=== PATIENT | female | born 2000 | race Caucasian/White ===

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

== ENCOUNTER 2019-02-04 20:52 | Emergency (ER) | payer MEDICAID ==
[~2019-02-04] VITALS: Ht 157.4 cm; Wt 94.0 kg
--- NOTE | 2019-02-04 21:59 | ED GU-Female ---
General Chief Complaint: Back Problems Stated Complaint: LOWER BACK PAIN ALL DAY - 35 WKS PREG Nursing Triage Note: Patient states that she has been having back pain for the last couple of days. She states that the pain comes and goes with cramping. Patient is 36 weeks and states this feels like labor. Patient did go into labor with previous pregnancies. Source: patient Exam Limitations: no limitations History of Present Illness Date Seen by Provider: Feb 04, 2019 Time Seen by Provider: 21:19 Initial Comments Here with report of low back pain. She is approximately 36 weeks and has had low back pain all day. She feels like she has had some contractions throughout the day. She is concerned because she has had labor on her previous delivery. She opted to come here instead of [facility] to get checked out just because it was closer. She lives here in [place]. Denies gush of water. Denies persistent or consistent contractions currently. Timing/Duration: this morning, changing over time Severity/Quality: moderate, dull Location: other (bilateral back) Radiation: none Activities at Onset: none Prior Genitourinary Problems: none Associated Symptoms: abdominal pain (intermittent contractions), lower back pain; No urinary frequency Allergies and Home Medications Allergies Coded Allergies: No Known Allergies (Verified Allergy, Unknown, 05/29/18) Home Medications Ibuprofen 600 Mg Tablet, 600 MG PO Q6H PRN for PAIN-MILD TO MODERATE Prescribed by: YOVANY CHAUDHARY on 01/03/18 0649 Phenazopyridine HCl 200 Mg Tablet, 200 MG PO TID PRN for dysuria Prescribed by: TESS MERCADO on 05/29/182135 Vit/Iron Fumarate/FA 1 Each Tablet, 1 EACH PO DAILY, (Reported) Sertraline HCl 50 Mg Tablet, 50 MG PO DAILY Prescribed by: YOVANY CHAUDHARY on 01/04/18 1154 Sulfamethoxazole/Trimethoprim 1 Each Tablet, 1 EACH PO BID Prescribed by: TESS MERCADO on 05/29/182135 Patient Home Medication List Home Medication List Reviewed: Yes Review of Systems Review of Systems Constitutional: see HPI; No chills, No fever Respiratory: no symptoms reported Cardiovascular: no symptoms reported Gastrointestinal: see HPI Genitourinary: no symptoms reported : Yes Psychiatric/Neurological: No Symptoms Reported Past Zlypjkk-Ujlyrh-Hcgoeb Hx Past Med/Social Hx: Reviewed Nursing Past Med/Soc Hx Patient Social History Alcohol Use: Denies Use Recreational Drug Use: No Smoking Status: Never a Smoker 2nd Hand Smoke Exposure: No Recent Foreign Travel: No Contact w/Someone Who Travel: No Recent Infectious Disease Expo: No Recent Hopitalizations: No Ebola Symptoms: Denies Symptoms Listed Physical Abuse: No Sexual Abuse: No Mistreated: No Fear: No Immunizations Up To Date Tetanus Booster (TDap): Less than 5yrs PED Vaccines UTD: Yes Date of Influenza Vaccine: Dec 15, 2017 Seasonal Allergies Seasonal Allergies: No Past Medical History Surgeries: Yes (ORAL SURGERY) Gallbladder, Tonsillectomy Respiratory: No Cardiac: No Neurological: No Female Reproductive Disorders: Denies Sexually Transmitted Disease: No HIV/AIDS: No Genitourinary: No Gastrointestinal: Yes Gall Bladder Disease Musculoskeletal: Yes Fractures Endocrine: No HEENT: No Loss of Vision: Denies Hearing Impairment: Denies Cancer: No Psychosocial: Yes Anxiety, Depression Integumentary: No Blood Disorders: No Adverse Reaction/Blood Tranf: No Family Medical History Reviewed Nursing Family Hx Cardiovascular disease 19 FATHER Completed stroke 19 FATHER Diabetes mellitus PATERNAL GRANDFATHER Hypertension 19 FATHER Kidney disease Myocardial infarction 19 FATHER Physical Exam Vital Signs Vital Signs - First Documented 02/04/19 21:10 Temp 36.4 Pulse 114 Resp 20 B/P (MAP) 128/82 O2 Delivery Room Air Capillary Refill : Height, Weight, BMI Height: 5'2.00" Weight: 190lbs. 0.0oz. 86.879423vw; 37.00 BMI Method:Stated General Appearance: WD/WN, no apparent distress Cardiovascular: regular rate, rhythm, no murmur Respiratory: lungs clear, normal breath sounds Gastrointestinal: non tender, soft, other (gravid above the umbilicus) Extremities: non-tender, normal inspection Neurologic/Psychiatric: alert, oriented x 3 Skin: normal color, warm/dry Progress/Results/Core Measures Suspected Sepsis SIRS Temperature: Pulse: Respiratory Rate: Blood Pressure / Mean: Results/Orders Vital Signs/I&O 02/04/19 21:10 Temp 36.4 Pulse 114 Resp 20 B/P (MAP) 128/82 O2 Delivery Room Air Capillary Refill : Progress Note : Progress Note Seen and evaluated. heart tones by Doppler at 141. Pelvic exam shows is still thick and approximately fingertip to 1 cm. Abdominal exam does not note any uterine contractions. I did discuss the case with Dr. Sams. She is recommending patient go ahead and proceed to [facility] for monitoring due to stated contractions today in light of history of previous early delivery. It is okay to go POV and I agree. I did discuss this with the patient and family and they agree. Discharged to go directly to [facility] labor and delivery for evaluation. We will collect UA for evaluation and results will be evaluated when she arrives at [facility]. Departure Impression Primary Impression: Low back pain during in third trimester Disposition: 01 HOME, SELF-CARE Condition: Stable Departure-Patient Inst. Decision time for Depature: 21:59 Referrals: ELIAS MORAES MD (PCP/Family) Primary Care Physician Patient Instructions: - The Ninth Month Add. Discharge Instructions: All discharge instructions reviewed with patient and/or family. Voiced understanding. Go to [facility] labor [facility] delivery for further evaluation. Please go directly there. Return for other concerns as needed. CHANDRIKA HASSAN MD Feb 04, 2019 21:59 POS
== END 2019-02-04 22:02 | disposition home or self-care (01) ==
LOC: EDUNIT# 20:52 → ER FS 20:53
DX: O99.89 Other specified diseases and conditions complicating pregnancy, childbirth and the puerperium (principal); M54.5 Low back pain; O99.343 Other mental disorders complicating pregnancy, third trimester; F41.9 Anxiety disorder, unspecified; F32.9 Major depressive disorder, single episode, unspecified; Z3A.35 35 weeks gestation of pregnancy; Z90.89 Acquired absence of other organs; Z82.49 Family history of ischemic heart disease and other diseases of the circulatory system

== ENCOUNTER 2019-02-17 19:30 | Inpatient (IN) | payer MEDICAID ==
[~2019-02-17] VITALS: Ht 157.5 cm; Wt 92.5 kg
--- NOTE | 2019-02-17 19:28 | NUR ---
EAMON LEHMAN presented to unit via ambulation from home, accompanied by family, for INDUCTION. EAMON LEHMAN weighed, gowned, voided, and to bed. EFHM and TOCO applied, VS taken. EAMON LEHMAN oriented to bed controls, call light, TV, heat, and A/C controls.
[2019-02-17 19:40] VITALS: BP 134/76
[2019-02-17] MEDS ORDERED: LACTATED RINGERS 1,000 ML IV SCH (19:59)
[2019-02-17] MEDS ORDERED: MISOPROSTOL 100 MCG (CYTOTEC) TAB PO ONE (20:00)
[2019-02-17] MEDS ORDERED: MINERAL OIL CONCENTRATE 99.9% 15 ML UDC TOP PRN (20:00)
[2019-02-17] MEDS ORDERED: METO-310 PO (20:07)
[2019-02-17] MEDS: D5 LR IV SOLUTION 1,000 ML IV SCH (20:51)
[2019-02-17] MEDS ORDERED: BUTORPHANOL INJ 2 MG/ML (STADOL) VIAL IV PRN (21:45)
[2019-02-17 21:57] LABS: BASOPHILS % (AUTO) 0 % (0-10); EOSINOPHILS # (AUTO) 0.1 10^3/uL (0.0-0.3); EOSINOPHILS % (AUTO) 1 % (0-10); HEMATOCRIT 32 % (35-52); HEMOGLOBIN 10.8 G/DL (11.5-16.0); LYMPHOCYTES # (AUTO) 2.4 X 10^3 (1.0-4.0); LYMPHOCYTES % (AUTO) 20 % (12-44); MEAN CORPUSCULAR HEMOGLOBIN 28 PG (25-34); MEAN CORPUSCULAR HGB CONC 33 G/DL (32-36); MEAN CORPUSCULAR VOLUME 85 FL (80-99); MEAN PLATELET VOLUME 10.7 FL (7.4-10.4); MONOCYTES # (AUTO) 1.2 X 10^3 (0.0-1.0); MONOCYTES % (AUTO) 10 % (0-12); NEUTROPHILS # (AUTO) 8.2 X 10^3 (1.8-7.8); NEUTROPHILS % (AUTO) 70 % (42-75); PLATELET COUNT 290 10^3/uL (130-400); RED CELL DISTRIBUTION WIDTH 12.9 % (10.0-14.5); WHITE BLOOD COUNT 11.8 10^3/uL (4.3-11.0)
[2019-02-17 22:00] VITALS: BP 142/77
[2019-02-17 23:00] VITALS: BP 120/68
[2019-02-17] MEDS ORDERED: BUPIVACAINE 0.25% 30 ML (SENSORCAINE) VIAL ONE (23:59)
[2019-02-18] VITALS (58 sets, daily range): BP systolic 110–143; BP diastolic 58–95
[2019-02-18] MEDS ORDERED: MISOPROSTOL 100 MCG (CYTOTEC) TAB PO SCH
[2019-02-18] MEDS ORDERED: fentaNYL INJECTION 100 MCG/2 ML AMP ONE
[2019-02-18] MEDS ORDERED: SUFENTA 0.6MCG/ML BUPIVA 0.125 100 ML ONE (00:02)
[2019-02-18] MEDS ORDERED: LACTATED RINGERS 1,000 ML IV ONE (00:06)
[2019-02-18] MEDS ORDERED: NALOXONE 0.4 MG/ML 1 ML (NARCAN) VIAL IV PRN (00:15)
[2019-02-18] MEDS ORDERED: EPIDURAL (SUFENTA 0.6MCG/ML BUPIVA 0.125%) 100 ML BAG EPI SCH (00:15)
[2019-02-18] MEDS ORDERED: CATHETER FLUSH 10 ML SYR IV PRN (00:15)
--- NOTE | 2019-02-18 00:42 | NUR ---
Enrique Mckenzie CRNA and SRNA here for epidural placement. Procedure explained, consent reviewed and signed by anesthesia. Questions answered to patient's satisfaction. Time out taken to verify correct patient/procedure. Patient up to side of bed, assisted into sitting position. Betadine prep done x3 and sterile drape applied. Local done, see anesthesia record. Test dose given, see anesthesia record for drug and dosage. Epidural catheter secured in place. Epidural placement complete. Assisted back into bed, monitors adjusted. Epidural dosed, see anesthesia record. Epidural of Sufenta/Bupvicaine @ 10cc/hr started per pump. Patient tolerated procedure well.
--- NOTE | 2019-02-18 04:02 | History & Physical-OB ---
OB - Chief Complaint & HPI Date/Time Date of Admission: Date of Admission: Feb 17, 2019 at 19:30 Date seen by a Provider: Feb 18, 2019 Time Seen by a Provider: 03:57 Chief Complaint/History OB-Reason for Admission/Chief: Medical Complication (Cholestatis) Hx : 3 Hx Para: 2 Expected Date of Delivery: Mar 11, 2019 Gestational Age in Weeks: 36 Gestational Age in Days: 6 Indication for induction: medical complication Other reason for admission: Patient presented to clinic today with severe itching. Previous patient had similar symptoms and bile acids were elevated in her last . State that itching in the last 2 days is more severe and so bad that she is making herself bleed. History of Labs O neg, Ab neg, Rub Imm HIV/RPR/HepB NR Normal 3 hr GTT GBS neg Allergies and Home Medications Allergies Coded Allergies: No Known Allergies (Verified Allergy, Unknown, 05/29/18) Home Medications Metoclopramide HCl 10 Mg Tablet, 10 MG PO BID, (Reported) Vit/Iron Fumarate/FA 1 Each Tablet, 1 EACH PO DAILY, (Reported) Patient Home Medication List Home Medication List Reviewed: Yes OB - History Hx of Present Care: Yes Ultrasounds: Normal mid trimester US Obstetrical Complications: None Medical Complications: Other (Cholestatis in pregnacy) Information Induced Hypertension: No Maternal Gestational Diabetes: No Hemorrhage: No Obstetrical History Hx : 3 Hx Para: 2 Hx # Term Pregnancies: 2 Number of Living Children: 2 Delivery History Adverse Rxn to Tranfusion: No Patient Past Medical History PMHx: Depression GERD Anxiety PSurgHx: Tonsillectomy and adenoidectomy Cholecystectomy Social History/Family History HIV/AIDS: No Recent Infectious Disease Expo: No Sexually Transmitted Disease: No Alcohol Use: Denies Use Recreational Drug Use: No Smoking Cessation: Never smoker 2nd Hand Smoke Exposure: No Immunizations Hepatitis A: Yes Hepatitis B: Yes Tetanus Booster (TDap): Less than 5yrs Date of Influenza Vaccine: Dec 15, 2017 Rubella: immune RPR/VDRL: Negative GBS Status: Negative HBsAG: Negative OB - Admission Exam Physical Exam Vitals: Vital Signs 02/18/19 02/18/19 00:51 02:30 Temp 37.1 Pulse 104 Resp 16 B/P (MAP) 134/62 (86) Pulse Ox 100 O2 Delivery Room Air HEENT: NCAT Heart: Rhythm Normal Lungs: Clear Abdomen: Gravid Cervical Dilatation: 3cm Effacement: 75% Station: -1 Membranes: Intact Accelerations: Accelerations Present Decelerations: Variable Decelerations Short Term Variability: Present Contractions on Admission: 6-10 Minutes Apart Intensity: Moderate Cheatham Scoring Tool (Modified) Dilation (cm): 1-2cm (1) Effacement (%): 51-79% (2) Descent/Station: -1,0 (2) Cervix Consistency: Soft (2) Cervix Position: Anterior (2) Add 1 point for: Each previous vaginal delivery (1) Cheatham Score: 10 Labs Laboratory Tests Test 02/17/19 20:45 Range/Units White Blood Count 11.8 H 4.3-11.0 10^3/uL Red Blood Count 3.80 L 4.35-5.85 10^6/uL Hemoglobin 10.8 L 11.5-16.0 G/DL Hematocrit 32 L 35-52 % Mean Corpuscular Volume 85 80-99 FL Mean Corpuscular Hemoglobin 28 25-34 PG Mean Corpuscular Hemoglobin Concent 33 32-36 G/DL Red Cell Distribution Width 12.9 10.0-14.5 % Platelet Count 290 130-400 10^3/uL Mean Platelet Volume 10.7 H 7.4-10.4 FL Neutrophils (%) (Auto) 70 42-75 % Lymphocytes (%) (Auto) 20 12-44 % Monocytes (%) (Auto) 10 0-12 % Eosinophils (%) (Auto) 1 0-10 % Basophils (%) (Auto) 0 0-10 % Neutrophils # (Auto) 8.2 H 1.8-7.8 X 10^3 Lymphocytes # (Auto) 2.4 1.0-4.0 X 10^3 Monocytes # (Auto) 1.2 H 0.0-1.0 X 10^3 Eosinophils # (Auto) 0.1 0.0-0.3 10^3/uL Basophils # (Auto) 0.0 0.0-0.1 10^3/uL OB - Assessment/Plan/Diagnosis Assessment Assessment: induction of labor Admission Dx 36 week gestation cholestatis of Admission Status: Inpatient Order (span 2 midnights) Reason for Inpatient Admission: Labor Plan Plan: Induction Other Plan 18 yo @ 36.6 wga here for IOL for Cholestatis in Plan - Cytotec, AROM in AM - Ok for epidural - GBS neg ELIAS MORAES MD Feb 18, 2019 04:02 POS
[2019-02-18] MEDS: D5 LR IV SOLUTION 1,000 ML IV SCH (04:30)
[2019-02-18] MEDS ORDERED: OXYTOCIN PRE-MIX DRIP 500 ML IV ONE ×2 (07:17→08:28)
[2019-02-18] MEDS ORDERED: ONDANSETRON 4 MG/2 ML (SDV) Z0FRAN IVP PRN (07:30)
[2019-02-18] MEDS: OXYTOCIN PRE-MIX DRIP 500 ML IV SCH ×2 (07:48→08:31)
--- NOTE | 2019-02-18 08:44 | OB Labor & Delivery Record ---
Vag Delivery Note Vag Delivery Note Date of Delivery: 02/18/19 Preoperative Diagnosis: Bryan Bustamante is a (18 /Para 3 / 2,Gestational Age (wks)36.6 here for IOL for Cholestatis of Postoperative Diagnosis: Same Surgeon: ELIAS MORAES Chemical Laboratory Scientist: None Anesthesia: Epidural Delivery Type: @ 0742 Findings: Viable Male , apgars 8/9, weight 7#5, 3305 Lacerations: skin tear Intact placenta with 3 vessel cord. No nuchal cord, body cord or shoulder dystocia Estimated Blood Loss: 125 ml Complications: None Condition: Stable Description of Procedure: The patient is a 18 year old female who presented for IOL for Cholestatis. She was admitted and informed consent was obtained. Her labor course was unremarkable. She progressed to complete dilatation and began to push. She was then set up for delivery. The infant's head was delivered atraumatically in the NILTON position. The shoulders and remainder of the infant's body were then delivered without difficulty. Upon delivery, the head was held below the level of the perineum and the mouth and nares were bulb suctioned. The cord was doubly clamped and cut and the was handed off to the pediatric staff. An intact placenta with 3-vessel cord delivered via Helder and there was found to be minimal bleeding.~ Vigorous fundal massage was performed and the fundus was found to be firm. IV oxytocin was given. Examination of the vagina and perineum revealed a skin tear that did not require repair. Following the repair, sponge, instrument and needle counts were correct. Mom and baby were both in stable condition in the labor suite. Vitals - Labs Vital Signs - I&O Vital Signs Date Time Temp Pulse Resp B/P (MAP) Pulse Ox O2 Delivery O2 Flow Rate FiO2 02/18/19 07:00 121 16 137/87 (104) 100 Room Air 02/18/19 06:45 109 16 121/73 (89) 99 Room Air 02/18/19 06:30 105 16 124/75 (91) 99 Room Air 02/18/19 06:15 132 16 130/75 (93) 97 Room Air 02/18/19 06:00 36.8 107 16 131/73 (92) 100 Room Air 02/18/19 05:45 115 16 143/94 (110) 97 Room Air 02/18/19 05:30 109 16 117/74 (88) 97 Room Air 02/18/19 05:15 120 16 127/72 (90) 99 Room Air 02/18/19 05:00 117 16 130/83 (99) 96 Room Air 02/18/19 04:45 114 16 135/80 (98) 96 Room Air 02/18/19 04:30 37.6 114 16 121/67 (85) 96 Room Air 02/18/19 04:15 119 16 123/69 (87) 96 Room Air 02/18/19 04:00 117 16 126/64 (84) 96 Room Air 02/18/19 03:45 116 16 127/87 (100) 96 Room Air 02/18/19 03:30 117 16 119/72 (88) 96 Room Air 02/18/19 03:15 36.8 110 16 127/71 (89) 96 Room Air 02/18/19 03:00 117 16 130/73 (92) 97 Room Air 02/18/19 02:45 112 16 124/58 (80) 97 Room Air 02/18/19 02:30 104 16 134/62 (86) 100 Room Air 02/18/19 02:15 97 16 140/80 (100) 99 Room Air 02/18/19 02:00 104 16 136/88 (104) 100 Room Air 02/18/19 01:45 100 16 136/80 (98) 100 Room Air 02/18/19 01:30 110 16 128/76 (93) 100 Room Air 02/18/19 01:25 113 16 131/81 (98) 100 Room Air 02/18/19 01:20 110 16 134/72 (92) 100 Room Air 02/18/19 01:15 119 16 124/83 (97) 98 Room Air 02/18/19 01:10 106 16 132/72 (92) 98 Room Air 02/18/19 01:05 113 16 133/78 (96) 98 Room Air 02/18/19 01:00 119 16 130/76 (94) 98 Room Air 02/18/19 00:57 110 16 141/83 (102) 98 Room Air 02/18/19 00:54 126 16 136/77 (96) 98 Room Air 02/18/19 00:51 37.1 123 18 139/80 (99) 98 Room Air 02/18/19 00:48 137 18 130/71 (90) 98 Room Air 02/18/19 00:45 126 18 134/76 (95) 99 Room Air 02/18/19 00:40 128 18 137/95 (109) 97 Room Air 02/18/19 00:35 129 18 132/65 (87) 97 Room Air 02/18/19 00:30 123 18 143/92 (109) 97 Room Air 02/18/19 00:25 125 18 140/85 (103) 97 Room Air 02/18/19 00:20 126 18 142/89 (106) 98 Room Air 02/18/19 00:00 111 18 110/82 (91) Room Air 02/17/19 23:00 107 16 120/68 (85) 100 Room Air 02/17/19 22:00 36.2 103 16 142/77 (98) 98 Room Air 02/17/19 19:40 36.7 113 16 98 Room Air 02/17/19 19:40 36.7 113 16 134/76 (95) 98 Room Air I & O 02/18/19 07:00 Intake Total 3000 ml Balance 3000 ml Labs Laboratory Tests 02/17/19 20:45: White Blood Count 11.8H, Red Blood Count 3.80L, Hemoglobin 10.8L, Hematocrit 32L , Mean Corpuscular Volume 85, Mean Corpuscular Hemoglobin 28, Mean Corpuscular Hemoglobin Concent 33, Red Cell Distribution Width 12.9, Platelet Count 290, Mean Platelet Volume 10.7H, Neutrophils (%) (Auto) 70, Lymphocytes (%) (Auto) 20, Monocytes (%) (Auto) 10, Eosinophils (%) (Auto) 1, Basophils (%) (Auto) 0, Neutrophils # (Auto) 8.2H, Lymphocytes # (Auto) 2.4, Monocytes # (Auto) 1.2H, Eosinophils # (Auto) 0.1, Basophils # (Auto) 0.0 ELIAS MORAES MD Feb 18, 2019 08:44 POS
[2019-02-18] MEDS ORDERED: WITCH HAZEL(TUCKS) 40 EA JAR TOP PRN (08:45)
[2019-02-18] MEDS ORDERED: BENZOCAINE/MENTHOL (DERMOPLAST) 60 ML CAN TP PRN (08:45)
[2019-02-18] MEDS ORDERED: TETANUS,DIPTH,PERTUSS P/F (BOOSTRIX) 0.5 ML VIAL IM ONE (08:45)
[2019-02-18] MEDS ORDERED: MEASLES,MUMPS,RUBELLA 1 EA INJ SQ ONE (08:45)
--- NOTE | 2019-02-18 09:50 | NUR ---
REFER TO LABOR FLOW SHEET.
[2019-02-18] MEDS: IBUPROFEN 600 MG (MOTRIN) TAB PO SCH ×3 (12:09→23:37)
[2019-02-18] MEDS ORDERED: CATHETER FLUSH 10 ML SYR IV SCH (14:00)
--- NOTE | 2019-02-18 16:17 | NUR ---
PT HAS BEEN IN AND OUT OF THE NURSERY, OFF AND ON THE UNIT. PT CURRENTLY IN ROOM, IN BED, ON PHONE. VS OBTAINED. FFU/0, MODERATE RUBRA LOCHIA, NO CLOTS. PT DENIES ANY NEEDS AT THIS TIME. CALL LIGHT WITHIN REACH.
--- NOTE | 2019-02-18 17:19 | Anesthesia-Regional Post-Op ---
Regional Patient Condition Mental Status: Alert, Oriented x3 Circulation: Same as Pre-Op Headache: Absent Sensation: Full Recovery Motor Block: Absent Post Op Complications Complications None Follow Up Care/Instructions Patient Instructions None needed. Anesthesia/Patient Condition Patient is doing well, no complaints, stable vital signs, no apparent adverse anesthesia problems. KUMAR MEDINA DO Feb 18, 2019 17:19 POS
[2019-02-18] MEDS: ACETAMINOPHEN 500 MG TAB (TYLENOL) PO SCH (21:44)
[2019-02-18] MEDS: DOCUSATE SODIUM 100 MG (COLACE) CAP PO SCH (21:44)
[2019-02-19 03:13] VITALS: BP 114/78
[2019-02-19] MEDS: IBUPROFEN 600 MG (MOTRIN) TAB PO SCH ×4 (05:15→17:54)
[2019-02-19] MEDS: ACETAMINOPHEN 500 MG TAB (TYLENOL) PO SCH ×3 (05:15→23:00)
[2019-02-19 06:06] LABS: BASOPHILS % (AUTO) 0 % (0-10); EOSINOPHILS # (AUTO) 0.2 10^3/uL (0.0-0.3); EOSINOPHILS % (AUTO) 2 % (0-10); HEMATOCRIT 32 % (35-52); HEMOGLOBIN 10.4 G/DL (11.5-16.0); LYMPHOCYTES # (AUTO) 2.2 X 10^3 (1.0-4.0); LYMPHOCYTES % (AUTO) 20 % (12-44); MEAN CORPUSCULAR HEMOGLOBIN 28 PG (25-34); MEAN CORPUSCULAR HGB CONC 33 G/DL (32-36); MEAN CORPUSCULAR VOLUME 87 FL (80-99); MEAN PLATELET VOLUME 10.8 FL (7.4-10.4); MONOCYTES # (AUTO) 1.4 X 10^3 (0.0-1.0); MONOCYTES % (AUTO) 12 % (0-12); NEUTROPHILS # (AUTO) 7.4 X 10^3 (1.8-7.8); NEUTROPHILS % (AUTO) 66 % (42-75); PLATELET COUNT 273 10^3/uL (130-400); RED CELL DISTRIBUTION WIDTH 12.7 % (10.0-14.5); WHITE BLOOD COUNT 11.2 10^3/uL (4.3-11.0)
--- NOTE | 2019-02-19 08:00 | NUR ---
PT IN THE NURSERY SEEING WITH S.O.
[2019-02-19 09:00] VITALS: BP 118/73
--- NOTE | 2019-02-19 09:00 | NUR ---
A.M. ASSESSMENT COMPLETED. VSS.
[2019-02-19] MEDS: DOCUSATE SODIUM 100 MG (COLACE) CAP PO SCH ×2 (09:56→23:00)
--- NOTE | 2019-02-19 10:30 | NUR ---
PT AMBULATING OFF UNIT OFF AND ON AND ALSO TO THE NURSERY.
[2019-02-19 12:45] VITALS: BP 121/82
--- NOTE | 2019-02-19 12:45 | NUR ---
PT RETURNED TO THE FLOOR. ROUTINE MOTRIN GIVEN. VISITORS AT BEDSIDE. EATING LUNCH.
--- NOTE | 2019-02-19 14:20 | Progress Note ---
Subjective Subjective/Events-last exam Had some increase cramping and bleeding overnight, improved after ibuprofen. Hb stable. Objective Exam Last Set of Vital Signs Vital Signs Date Time Temp Pulse Resp B/P (MAP) Pulse Ox O2 Delivery O2 Flow Rate FiO2 02/19/19 09:00 36.6 82 18 118/73 (88) 97 Room Air Capillary Refill : Less Than 3 Seconds I&O Intake and Output 02/19/19 00:00 Intake Total 3000 ml Balance 3000 ml IV Total 3000 ml General: Alert, Oriented X3, Cooperative Psych/Mental Status: Mood NL Results/Procedures Lab Laboratory Tests 02/19/19 05:25: White Blood Count 11.2H, Red Blood Count 3.70L, Hemoglobin 10.4L, Hematocrit 32L , Mean Corpuscular Volume 87, Mean Corpuscular Hemoglobin 28, Mean Corpuscular Hemoglobin Concent 33, Red Cell Distribution Width 12.7, Platelet Count 273, Mean Platelet Volume 10.8H, Neutrophils (%) (Auto) 66, Lymphocytes (%) (Auto) 20, Monocytes (%) (Auto) 12, Eosinophils (%) (Auto) 2, Basophils (%) (Auto) 0, Neutrophils # (Auto) 7.4, Lymphocytes # (Auto) 2.2, Monocytes # (Auto) 1.4H, Eosinophils # (Auto) 0.2, Basophils # (Auto) 0.0 Assessment/Plan Assessment/Plan (1) Status post vaginal delivery Assessment & Plan: IOL at 36w6 for cholestsis of ; on 02/18/19 - PPD#1 - doing well Routine care. Anticipate DC home tomorrow. (2) Cholestasis during Clinical Quality Measures DVT/VTE Risk/Contraindication: Risk Factor Score Per Nursin RFS Level Per Nursing on Admit: 1=Low/No VTE PPX DANDRE GUERRA DO Feb 19, 2019 14:20 POS
--- NOTE | 2019-02-19 14:25 | NUR ---
OFFERS NO COMPLAINTS.
--- NOTE | 2019-02-19 15:20 | NUR ---
PT REQUESTED TO SEE THIS RN WITH CONCERNS ABOUT INFANT'S CARE. ASKING THIS RN IF THEY CAN REQUEST BE TRANSFERRED AND DOESN'T "UNDERSTAND WHY IF INFANT WAS OFF OXYGEN BABY COULDN'T BE BROUGHT TO THE ROOM." QUESTIONS ANSWERED AND REPORTED CONCERNS AND COMPLAINTS TO NURSERY RNS.
[2019-02-19 16:30] VITALS: BP 121/78
--- NOTE | 2019-02-19 17:55 | NUR ---
EATING STORK MEAL. ROUTINE MOTRIN GIVEN.
[2019-02-19 23:01] VITALS: BP 129/90
[2019-02-20] MEDS: IBUPROFEN 600 MG (MOTRIN) TAB PO SCH ×2 (01:47→09:57)
[2019-02-20 05:00] VITALS: BP 109/55
[2019-02-20] MEDS: ACETAMINOPHEN 500 MG TAB (TYLENOL) PO SCH (06:39)
--- NOTE | 2019-02-20 09:02 | NUR ---
Report given to HROTENSIA Barahona.
[2019-02-20 09:50] VITALS: BP 118/72
[2019-02-20] MEDS: DOCUSATE SODIUM 100 MG (COLACE) CAP PO SCH (09:57)
--- NOTE | 2019-02-20 11:22 | Discharge Summary ---
Diagnosis/Chief Complaint Date of Admission Feb 17, 2019 at 19:30 Date of Discharge 02/20/19 Admission Diagnosis Admission Diagnosis gestation 36 weeks gestation Cholestasis of Discharge Diagnosis see below Problems/Diagnosis: (1) Status post vaginal delivery Assessment & Plan: IOL at 36w6 for cholestsis of ; on 02/18/19 - PPD#1 - doing well Routine care. Anticipate DC home tomorrow. 02/20: PPD#2, doing well, bottle feeding infant, plan to d.c today with 6 week f/u with [facility] (2) Cholestasis during Discharge Summary-Simple/Stand Procedures Epidural Placement Discharge Physical Examination Allergies: Coded Allergies: No Known Allergies (Verified Allergy, Unknown, 05/29/18) Vitals & I&Os Vital Sign - Last 12Hours Date Time Temp Pulse Resp B/P (MAP) Pulse Ox O2 Delivery O2 Flow Rate FiO2 02/20/19 09:57 36.6 02/20/19 05:00 59 16 109/55 (73) 96 Room Air General Appearance: Alert, Oriented X3, Cooperative, No Acute Distress HEENT: Mucous Memb Moist/[place] Respiratory: Clear to Auscultation, Normal Air Movement Cardiovascular: Regular Rate, No Murmurs Abdominal: Normal Bowel Sounds, Soft, No Tenderness, No Masses, Other (Fundus firm and below umbilicus) Extremities: No Edema, No Tenderness/Swelling Skin: No Rashes, No Breakdown Neuro: Strength at 5/5 X4 Ext, Sensation Intact, Cranial Nerves 3-12 NL Psych/Mental Status: Mental Status NL, Mood NL Hospital Course Was the Problem List Reviewed?: Yes See final discharge diagnosis. Discussion & Recommendations 18 yo G3 now P3 delivered at 36.5 wga after IOL for Cholestasis in Discharge Condition at discharge stable Instructions to patient/family Please see electronic discharge instructions given to patient. Discharge Medications Reviewed and agree with Discharge Medication list on patient's Discharge Instruction sheet Clinical Quality Measures DVT/VTE Risk/Contraindication: Risk Factor Score Per Nursin RFS Level Per Nursing on Admit: 1=Low/No VTE PPX Copy Copies To 1: ELIAS MORAES MD, HOLLY R MD Feb 20, 2019 11:22 POS
[2019-02-20] MEDS ORDERED: ACET-78 PO (11:26)
[2019-02-20] MEDS ORDERED: IBUP-844 PO (11:26)
--- NOTE | 2019-02-20 11:27 | Discharge Instructions ---
Discharge Inst-[facility] Reconcile Patient Problems Problems Reviewed?: Yes Depart Medications New, Converted or Re-Newed RX: Transmitted to Pharmacy New Medications: Acetaminophen (Acetaminophen) 500 Mg Tablet 1000 MG PO Q8HR, #90 TAB Ibuprofen (Ibu) 600 Mg Tablet 600 MG PO Q6HR, #90 TAB Continued Medications: Vit/Iron Fumarate/FA ( Vitamin Tablet) 1 Each Tablet 1 EACH PO DAILY, TAB Discontinued Medications: Metoclopramide HCl (Reglan) 10 Mg Tablet 10 MG PO BID, TAB Follow Up/Instructions Goal/Follow Up: [address] up with Dr Meza Activity Activity: Activity as Tolerated Driving Instructions: You May Drive NO SMOKING: NO SMOKING Nothing Inside Vagina: No Douching, No Angelica, No Tampons Diet Discharge Diet: No Restrictions Symptoms to Report to : Bleeding Excessive, Fever Over 101 Degrees F, Nausea/Vomiting, Shortness of Breath For Any Problems or Questions: Contact Your Physician Copies To 1: ELIAS MEZA MD, HOLLY R MD Feb 20, 2019 11:27 POS
[2019-02-20 16:00] VITALS: BP 101/56
--- NOTE | 2019-02-20 16:00 | NUR ---
DISCHARGE INSTRUCTIONS EXPLAINED TO PT/SO, NO QUESTIONS NOTED, VSS, PT DENIES QUESTIONS OR CONCERNS. PT TO ROOM IN WHILE INFANT STILL ADMITTED. PT VERBALIZES FOLLOW UP INSTRUCTIONS.
--- OUTSIDE RECORDS SUMMARY | 2019-03-15 17:53 | XMS REPORT | Continuity of Care Document ---
Author Organization Unknown Address Unknown Phone Unavailable Allergies Active Description Code Type Severity Reaction Onset Reported/Identified Relationship to Patient Clinical Status Yes No Known Allergies [id number] Drug Allergy Unknown N/A 05/29/2018 Medications There is no data. Problems Date Dx Coded Attending Type Code Diagnosis Diagnosed By 05/01/2016 ELIAS MORAES MD Ot Z34.9 3 ENCNTR FOR SUPRVSN OF NORMAL PREG, UNSP, 05/01/2016 ELIAS MORAES MD Ot Z34.9 3 ENCNTR FOR SUPRVSN OF NORMAL PREG, UNSP, 05/16/2016 ELIAS MORAES MD Ot Z34.9 3 ENCNTR FOR SUPRVSN OF NORMAL PREG, UNSP, 05/23/2016 ELIAS MORAES MD Ot Z34.9 3 ENCNTR FOR SUPRVSN OF NORMAL PREG, UNSP, 06/02/2016 ELIAS MORAES MD Ot Z34.9 3 ENCNTR FOR SUPRVSN OF NORMAL PREG, UNSP, 06/04/2016 YOVANY CHAUDHARY MD Ot O41.1230 CHORIOAMNIONITIS, THIRD TRIMESTER, NOT A 06/04/2016 YOVANY CHAUDHARY MD Ot O71 .4 OBSTETRIC HIGH VAGINAL LACERATION ALONE 06/04/2016 YOVANY CHAUDHARY MD Ot Z37 .0 SINGLE LIVE 06/04/2016 YOVANY CHAUDHARY MD Ot Z3A.38 38 WEEKS GESTATION OF 11/23/2017 CHANDRIKA HASSAN MD Ot O26.893 OTH RELATED CONDITIONS, THIRD 11/23/2017 CHANDRIKA HASSAN MD Ot O9A.213 INJ/POISN/OTH CONSEQ OF EXTERNAL CAUSES 11/23/2017 CHANDRIKA HASSAN MD Ot S86.911A STRAIN OF UNSP MUSC/TEND AT LOWER LEG LE 11/23/2017 CHANDRIKA HASSAN MD Ot X50.1XXA OVEREXERTION FROM PROLONGED STATIC OR AW 11/23/2017 CHANDRIKA HASSAN MD, Ot Y92.[address] 11/23/2017 CHANDRIKA HASSAN MD, Ot Z3A.32 32 WEEKS GESTATION OF 11/23/2017 CHANDRIKA HASSAN MD, Ot Z82.49 FAMILY HX OF ISCHEM HEART DIS AND OTH DI 11/25/2017 CHANDRIKA HASSAN MD, Ot O26.893 OTH RELATED CONDITIONS, THIRD 11/25/2017 CHANDRIKA HASSAN MD, Ot O9A.213 INJ/POISN/OTH CONSEQ OF EXTERNAL CAUSES 11/25/2017 CHANDRIKA HASSAN MD, Ot S86.911A STRAIN OF UNSP MUSC/TEND AT LOWER LEG LE 11/25/2017 CHANDRIKA HASSAN MD, Ot X50.1XXA OVEREXERTION FROM PROLONGED STATIC OR AW 11/25/2017 CHANDRIKA HASSAN MD, Ot Y92.[address] 11/25/2017 CHANDRIKA HASSAN MD, Ot Z3A.32 32 WEEKS GESTATION OF 11/25/2017 CHANDRIKA HASSNA MD, Ot Z82.49 FAMILY HX OF ISCHEM HEART DIS AND OTH DI 12/26/2017 YOVANY CHAUDHARY MD Ot O47.03 FALSE LABOR BEFORE 37 COMPLETED WEEKS OF 12/26/2017 YOVANY CHAUDHARY MD Ot Z3A.36 36 WEEKS GESTATION OF 12/26/2017 YOVANY CHAUDHARY MD Ot O47.03 FALSE LABOR BEFORE 37 COMPLETED WEEKS OF 12/26/2017 YOVANY CHAUDHARY MD Ot Z3A.36 36 WEEKS GESTATION OF 01/04/2018 ELIAS MORAES MD Ot F32.9 MAJOR DEPRESSIVE DISORDER, SINGLE EPISOD 01/04/2018 ELIAS MORAES MD, Ot F41.9 ANXIETY DISORDER, UNSPECIFIED 01/04/2018 ELIAS MORAES MD Ot G57.3 1 LESION OF LATERAL POPLITEAL NERVE, RIGHT 01/04/2018 ELIAS MORAES MD Ot K21.9 GASTRO-ESOPHAGEAL REFLUX DISEASE WITHOUT 01/04/2018 ELIAS MORAES MD Ot O99.3 44 OTHER MENTAL DISORDERS COMPLICATING CHIL 01/04/2018 ELIAS MORAES MD Ot O99.3 55 DISEASES OF THE NERVOUS SYSTEM COMPLICAT 01/04/2018 ELIAS MORAES MD Ot Z37.0 SINGLE LIVE 01/04/2018 ELIAS MORAES MD Ot Z3A.3 7 37 WEEKS GESTATION OF 05/29/2018 JESS HENSON TESS T Ot F32. 9 MAJOR DEPRESSIVE DISORDER, SINGLE EPISOD 05/29/2018 JESS HENSON, TESS T Ot F41. 9 ANXIETY DISORDER, UNSPECIFIED 05/29/2018 JESS HENSON, TESS T Ot N39. 0 URINARY TRACT INFECTION, SITE NOT SPECIF 05/29/2018 JESS HENSON, TESS T Ot Z82. 49 FAMILY HX OF ISCHEM HEART DIS AND OTH DI 05/29/2018 JESS HENSON, TESS T Ot Z87. 19 PERSONAL HISTORY OF OTHER DISEASES OF TH 05/29/2018 JESS HENSON, TESS T Ot Z90. 89 ACQUIRED ABSENCE OF OTHER ORGANS 05/29/2018 JESS HENSON, TESS T Ot Z98.890 OTHER SPECIFIED POSTPROCEDURAL STATES 06/01/2018 JESS HENSON TESS T Ot F32. 9 MAJOR DEPRESSIVE DISORDER, SINGLE EPISOD 06/01/2018 JESS HENSON, TESS T Ot F41. 9 ANXIETY DISORDER, UNSPECIFIED 06/01/2018 JESS HENSON, TESS T Ot N39. 0 URINARY TRACT INFECTION, SITE NOT SPECIF 06/01/2018 JESS HENSON, TESS T Ot Z82. 49 FAMILY HX OF ISCHEM HEART DIS AND OTH DI 06/01/2018 JESS HENSON, TESS T Ot Z87. 19 PERSONAL HISTORY OF OTHER DISEASES OF TH 06/01/2018 JESS HENSON, TESS T Ot Z90. 89 ACQUIRED ABSENCE OF OTHER ORGANS 06/01/2018 JESS HENSON, TESS T Ot Z98.890 OTHER SPECIFIED POSTPROCEDURAL STATES 09/25/2018 KATHARINA WEIR MD Ot F32 .9 MAJOR DEPRESSIVE DISORDER, SINGLE EPISOD 09/25/2018 KATHARINA WEIR MD Ot F41 .9 ANXIETY DISORDER, UNSPECIFIED 09/25/2018 KATHARINA WEIR MD Ot O20 .9 HEMORRHAGE IN EARLY , UNSPECIFI 09/25/2018 KATHARINA WEIR MD Ot O99.342 OTH MENTAL DISORDERS COMP , SEC 09/25/2018 KATHARINA WEIR MD Ot Z3A.16 16 WEEKS GESTATION OF 09/25/2018 KATHARINA WEIR MD Ot Z82.49 FAMILY HX OF ISCHEM HEART DIS AND OTH DI 09/25/2018 KATHARINA WEIR MD Ot Z90.89 ACQUIRED ABSENCE OF OTHER ORGANS 10/01/2018 KATHARINA WEIR MD Ot F32 .9 MAJOR DEPRESSIVE DISORDER, SINGLE EPISOD 10/01/2018 KATHARINA WEIR MD Ot F41 .9 ANXIETY DISORDER, UNSPECIFIED 10/01/2018 KATHARINA WEIR MD Ot O20 .9 HEMORRHAGE IN EARLY , UNSPECIFI 10/01/2018 KATHARINA WEIR MD Ot O99.342 OTH MENTAL DISORDERS COMP , SEC 10/01/2018 KATHARINA WEIR MD Ot Z3A.16 16 WEEKS GESTATION OF 10/01/2018 KATHARINA WEIR MD Ot Z82.49 FAMILY HX OF ISCHEM HEART DIS AND OTH DI 10/01/2018 KATHARINA WEIR MD Ot Z90.89 ACQUIRED ABSENCE OF OTHER ORGANS 10/01/2018 CRAIG PETERSEN APRN Ot F32 .9 MAJOR DEPRESSIVE DISORDER, SINGLE EPISOD 10/01/2018 CRAIG PETERSEN APRN Ot F41 .9 ANXIETY DISORDER, UNSPECIFIED 10/01/2018 CRAIG PETERSEN APRN Ot O20 .9 HEMORRHAGE IN EARLY , UNSPECIFI 10/01/2018 CRAIG PETERSEN DIGITAL ACCOUNT DIRECTOR Ot O44.02 COMPLETE PLACENTA PREVIA NOS OR WITHOUT 10/01/2018 CRAIG PETERSEN DIGITAL ACCOUNT DIRECTOR Ot O99.342 OTH MENTAL DISORDERS COMP , SEC 10/01/2018 CRAIG PETERSEN APRN Ot Z3A.16 16 WEEKS GESTATION OF 10/01/2018 CRAIG PETERSEN DIGITAL ACCOUNT DIRECTOR Ot Z82.49 FAMILY HX OF ISCHEM HEART DIS AND OTH DI 10/01/2018 CRAIG PETERSEN DIGITAL ACCOUNT DIRECTOR Ot Z90.89 ACQUIRED ABSENCE OF OTHER ORGANS 10/03/2018 KATHARINA WEIR MD Ot F32 .9 MAJOR DEPRESSIVE DISORDER, SINGLE EPISOD 10/03/2018 KATHARINA WEIR MD Ot F41 .9 ANXIETY DISORDER, UNSPECIFIED 10/03/2018 KATHARINA WEIR MD Ot O20 .9 HEMORRHAGE IN EARLY , UNSPECIFI 10/03/2018 KATHARINA WEIR MD Ot O99.342 OTH MENTAL DISORDERS COMP , SEC 10/03/2018 KATHARINA WEIR MD Ot Z3A.16 16 WEEKS GESTATION OF 10/03/2018 KATHARINA WEIR MD Ot Z82.49 FAMILY HX OF ISCHEM HEART DIS AND OTH DI 10/03/2018 KATHARINA WEIR MD Ot Z90.89 ACQUIRED ABSENCE OF OTHER ORGANS 11/04/2018 MONET STEWART MD Ot F32. 9 MAJOR DEPRESSIVE DISORDER, SINGLE EPISOD 11/04/2018 MONET STEWART MD Ot F41. 9 ANXIETY DISORDER, UNSPECIFIED 11/04/2018 MONET STEWART MD Ot O44. 02 COMPLETE PLACENTA PREVIA NOS OR WITHOUT 11/04/2018 MONET STEWART MD Ot O46. 92 ANTEPARTUM HEMORRHAGE, UNSPECIFIED, SECO 11/04/2018 MONET STEWART MD Ot O99.342 OTH MENTAL DISORDERS COMP , SEC 11/04/2018 MONET STEWART MD Ot Z3A. 21 21 WEEKS GESTATION OF 11/04/2018 MONET STEWART MD Ot Z82. 49 FAMILY HX OF ISCHEM HEART DIS AND OTH DI 11/04/2018 MONET STEWART MD Ot Z90. 89 ACQUIRED ABSENCE OF OTHER ORGANS 12/17/2018 CRAIG PETERSEN APRN Ot F32 .9 MAJOR DEPRESSIVE DISORDER, SINGLE EPISOD 12/17/2018 CRAIG PETERSEN APRN Ot F41 .9 ANXIETY DISORDER, UNSPECIFIED 12/17/2018 CRAIG PETERSEN APRN Ot O20 .9 HEMORRHAGE IN EARLY , UNSPECIFI 12/17/2018 CRAIG PETERSEN APRN Ot O44.02 COMPLETE PLACENTA PREVIA NOS OR WITHOUT 12/17/2018 CRAIG PETERSEN APRN Ot O99.342 OTH MENTAL DISORDERS COMP , SEC 12/17/2018 CRAIG PETERSEN APRN Ot Z3A.16 16 WEEKS GESTATION OF 12/17/2018 CRAIG PETERSEN APRN Ot Z82.49 FAMILY HX OF ISCHEM HEART DIS AND OTH DI 12/17/2018 CRAIG PETERSEN APRN Ot Z90.89 ACQUIRED ABSENCE OF OTHER ORGANS 02/09/2019 CHANDRIKA HASSAN MD Ot F32.9 MAJOR DEPRESSIVE DISORDER, SINGLE EPISOD 02/09/2019 CHANDRIKA HASSAN MD Ot F41.9 ANXIETY DISORDER, UNSPECIFIED 02/09/2019 CHANDRIKA HASSAN MD, Ot M54.5 LOW BACK PAIN 02/09/2019 CHANDRIKA HASSAN MD Ot O99.343 OTH MENTAL DISORDERS COMPLICATING PREGNA 02/09/2019 CHANDRIKA HASSAN MD, Ot O99.89 OTH DISEASES AND CONDITIONS COMPL PREG/C 02/09/2019 CHANDRIKA HASSAN MD, Ot Z3A.35 35 WEEKS GESTATION OF 02/09/2019 CHANDRIKA HASSAN MD, Ot Z82.49 FAMILY HX OF ISCHEM HEART DIS AND OTH DI 02/09/2019 CHANDRIKA HASSAN MD, Ot Z90.89 ACQUIRED ABSENCE OF OTHER ORGANS 02/20/2019 ELIAS MORAES MD Ot F32.9 MAJOR DEPRESSIVE DISORDER, SINGLE EPISOD 02/20/2019 ELIAS MORAES MD Ot F41.9 ANXIETY DISORDER, UNSPECIFIED 02/20/2019 ELIAS MORAES MD Ot K21.9 GASTRO-ESOPHAGEAL REFLUX DISEASE WITHOUT 02/20/2019 ELIAS MORAES MD Ot K83.1 OBSTRUCTION OF BILE DUCT 02/20/2019 ELIAS MORAES MD Ot O26.6 2 LIVER AND BILIARY TRACT DISORDERS IN CHI 02/20/2019 ELIAS MORAES MD Ot O60.14X0 LABOR THIRD TRI W DELIVE 02/20/2019 ELIAS MORAES MD Ot O71.8 2 OTHER SPECIFIED TRAUMA TO PERINEUM AND V 02/20/2019 ELIAS MORAES MD Ot O99.3 44 OTHER MENTAL DISORDERS COMPLICATING CHIL 02/20/2019 ELIAS MORAES MD Ot O99.6 2 DISEASES OF THE DIGESTIVE SYSTEM COMPLIC 02/20/2019 ELIAS MORAES MD Ot Z37.0 SINGLE LIVE 02/20/2019 ELIAS MORAES MD Ot Z3A.3 6 36 WEEKS GESTATION OF Procedures Code Description Performed By Per formed On [id number] RE PAIR VAGINA, EXTERNAL APPROACH 06/02/2016 [id number] DE LIVERY OF PRODUCTS OF CONCEPTION, EXTE 06/02/2016 [id number] DE LIVERY OF PRODUCTS OF CONCEPTION, EXTE 01/01/2018 [id number] IN TRODUCE OTH THERAP SUBST IN MOUTH/PHAR 02/17/2019 [id number] AKHIL LIVERY OF PRODUCTS OF CONCEPTION, EXTE 02/18/2019 Results Test Result Range Complete urinalysis with reflex to cultu re - 06/02/16 00:30 Urine color determination YELLOW NRG Urine clarity determination SLIGHTLY CLOUDY NRG Urine pH measurement by test strip 6.5 5-9 Specific gravity of urine by test strip 1.010 1.016-1.022 Urine protein assay by test strip, semi-quantitative 2+ NEGATIVE Urine glucose detection by automated test strip NE GATIVE NEGATIVE Erythrocytes detection in urine sediment by light micr oscopy 2+ NEGATIVE Urine ketones detection by automated test strip NE GATIVE NEGATIVE Urine nitrite detection by test strip NEGATIVE NEGATIVE Urine total bilirubin detection by test strip NEGA TIVE NEGATIVE Urine urobilinogen measurement by automated test strip (mass/volume) NORMAL NORMAL Urine leukocyte esterase detection by dipstick 1+ NEGATIVE Automated urine sediment erythrocyte cou nt by microscopy (number/high power field) RARE NRG Automated urine sediment leukocyte count by microscopy (number/high power field) [HPF] NRG Bacteria detection in urine sediment by light microsco py LARGE NRG Squamous epithelial cells detection in u rine sediment by light microscopy 10-25 NRG Crystals detection in urine sediment by light microsco py NONE NRG Casts detection in urine sediment by light microscopy NONE NRG Mucus detection in urine sediment by light microscopy NEGATIVE NRG Complete urinalysis with reflex to culture YES NRG Bacterial urine culture - 06/02/16 00:30 Bacterial urine culture FOOTNOTE NRG Complete blood count (CBC) with automate d white blood cell (WBC) differential - 06/02/16 01:05 Blood leukocytes automated count (number/volume) 12.1 10*3/uL 4.3-11.0 Blood erythrocytes automated count (number/volume) 3.70 10*6/uL 4.35-5.85 Venous blood hemoglobin measurement (mass/volume) 10.5 g/dL 11.5-16.0 Blood hematocrit (volume fraction) 32 % 35-52 Automated erythrocyte mean corpuscular volume 86 [ foz_us] 80-99 Automated erythrocyte mean corpuscular h emoglobin (mass per erythrocyte) 28 pg 25-34 Automated erythrocyte mean corpuscular h emoglobin concentration measurement (mass/volume) 33 g/dL 32-36 Automated erythrocyte distribution width ratio 13. 1 % 10.0- 14.5 Automated blood platelet count (count/volume) 268 10*3/uL 130-400 Automated blood platelet mean volume measurement 11.1 [foz_us] 7.4-10.4 Automated blood neutrophils/100 leukocytes 69 % 42-75 Automated blood lymphocytes/100 leukocytes 22 % 12-44 Blood monocytes/100 leukocytes 9 % 0-12 Automated blood eosinophils/100 leukocytes 0 % 0-10 Automated blood basophils/100 leukocytes 0 % 0-10 Blood neutrophils automated count (number/volume) 8.3 10*3 1.8-7.8 Blood lymphocytes automated count (number/volume) 2.7 10*3 1.0-4.0 Blood monocytes automated count (number/volume) 1. 0 10*3 0.0-1.0 Automated eosinophil count 0.1 10*3/uL 0 .0-0.3 Automated blood basophil count (count/volume) 0.0 10*3/uL 0.0-0.1 Blood type T Indirect antibody screen pa hayley - 06/02/16 01:05 ABO+Rh group ON NRG Transfusion band number [id number] [facility] Blood group antibody screen NEGATIVE NR G Complete blood count (CBC) with automate d white blood cell (WBC) differential - 06/03/16 05:19 Blood leukocytes automated count (number/volume) 14.6 10*3/uL 4.3-11.0 Blood erythrocytes automated count (number/volume) 3.34 10*6/uL 4.35-5.85 Venous blood hemoglobin measurement (mass/volume) 9.6 g/dL 11.5-16.0 Blood hematocrit (volume fraction) 29 % 35-52 Automated erythrocyte mean corpuscular volume 87 [ foz_us] 80-99 Automated erythrocyte mean corpuscular h emoglobin (mass per erythrocyte) 29 pg 25-34 Automated erythrocyte mean corpuscular h emoglobin concentration measurement (mass/volume) 33 g/dL 32-36 Automated erythrocyte distribution width ratio 13. 2 % 10.0- 14.5 Automated blood platelet count (count/volume) 232 10*3/uL 130-400 Automated blood platelet mean volume measurement 10.8 [foz_us] 7.4-10.4 Automated blood neutrophils/100 leukocytes 68 % 42-75 Automated blood lymphocytes/100 leukocytes 19 % 12-44 Blood monocytes/100 leukocytes 13 % 0-12 Automated blood eosinophils/100 leukocytes 0 % 0-10 Automated blood basophils/100 leukocytes 0 % 0-10 Blood neutrophils automated count (number/volume) 9.9 10*3 1.8-7.8 Blood lymphocytes automated count (number/volume) 2.7 10*3 1.0-4.0 Blood monocytes automated count (number/volume) 1. 9 10*3 0.0-1.0 Automated eosinophil count 0.1 10*3/uL 0 .0-0.3 Automated blood basophil count (count/volume) 0.0 10*3/uL 0.0-0.1 CULTURE, URINE - 06/19/17 15:10 CULTURE, URINE, ROUTINE SEE NOTE NRG CULTURE, GENITAL - 06/19/17 15:10 CULTURE, GENITAL SEE NOTE NRG CBC - 06/19/17 15:10 WHITE BLOOD CELL COUNT TNP Thousand/uL N RG ANTIBODY SCREEN - 06/19/17 15:10 ANTIBODY SCREEN, RBC W/REFL ID, TITER AND AG TNP NRG TSH - 06/19/17 15:10 TSH TNP mIU/L NRG RUBELLA IMMUNE STATUS - 06/19/17 15:10 RUBELLA ANTIBODY (IGG) TNP index NRG CBC - 06/19/17 15:23 WHITE BLOOD CELL COUNT 9.5 Thousand/uL 4 .5-13.0 RED BLOOD CELL COUNT 4.68 Million/uL 3.8 0-5.10 HEMOGLOBIN 13.8 g/dL 11.5-15.3 HEMATOCRIT 41.2 % 34.0-46.0 MCV 88.0 fL 78.0-98.0 MCH 29.5 pg 25.0-35.0 MCHC 33.5 g/dL 31.0-36.0 RDW 12.3 % 11.0-15.0 PLATELET COUNT 322 Thousand/uL 140-400 MPV 10.3 fL 7.5-12.5 ABSOLUTE NEUTROPHILS 6840 cells/uL 1800- 8000 ABSOLUTE LYMPHOCYTES 1995 cells/uL 1200- 5200 ABSOLUTE MONOCYTES 580 cells/uL 200-900 ABSOLUTE EOSINOPHILS [...] 15:35 WHITE BLOOD CELL COUNT 9.6 Thousand/uL 4 .5-13.0 RED BLOOD CELL COUNT 4.02 Million/uL 3.8 0-5.10 HEMOGLOBIN 12.0 g/dL 11.5-15.3 HEMATOCRIT 35.5 % 34.0-46.0 MCV 88.3 fL 78.0-98.0 MCH 29.9 pg 25.0-35.0 MCHC 33.8 g/dL 31.0-36.0 RDW 12.7 % 11.0-15.0 PLATELET COUNT 283 Thousand/uL 140-400 MPV 10.9 fL 7.5-12.5 ABSOLUTE NEUTROPHILS 6845 cells/uL 1800- 8000 ABSOLUTE LYMPHOCYTES 2045 cells/uL 1200- 5200 ABSOLUTE MONOCYTES 643 cells/uL 200-900 ABSOLUTE EOSINOPHILS [...] NRG CULTURE, GROUP B STREP (VAGINAL) - 12/24 07:00 STREPTOCOCCUS, GROUP B CULTURE SEE NOTE NRG Complete urinalysis with reflex to cultu re - 12/25/17 07:55 Urine color determination YELLOW NRG Urine clarity determination CLEAR NR G Urine pH measurement by test strip 6 5-9 Specific gravity of urine by test strip 1.025 1.016-1.022 Urine protein assay by test strip, semi-quantitative 2+ NEGATIVE Urine glucose detection by automated test strip NE GATIVE NEGATIVE Erythrocytes detection in urine sediment by light micr oscopy NEGATIVE NEGATIVE Urine ketones detection by automated test strip 4+ NEGATIVE Urine nitrite detection by test strip NEGATIVE NEGATIVE Urine total bilirubin detection by test strip NEGA TIVE NEGATIVE Urine urobilinogen measurement by automated test strip (mass/volume) NORMAL NORMAL Urine leukocyte esterase detection by dipstick 3+ NEGATIVE Automated urine sediment erythrocyte cou nt by microscopy (number/high power field) RARE NRG Automated urine sediment leukocyte count by microscopy (number/high power field) [HPF] NRG Bacteria detection in urine sediment by light microsco py FEW NRG Squamous epithelial cells detection in u rine sediment by light microscopy 2-5 NRG Crystals detection in urine sediment by light microsco py NONE NRG Casts detection in urine sediment by light microscopy NONE NRG Mucus detection in urine sediment by light microscopy NEGATIVE NRG Complete urinalysis with reflex to culture NO NRG Bacterial urine culture - 12/25/17 07:55 Bacterial urine culture SEE COMMEN NRG COLONY COUNT . NRG Automated blood complete blood count (he mogram) panel - 12/25/17 13:30 Blood leukocytes automated count (number/volume) 11.6 10*3/uL 4.3-11.0 Blood erythrocytes automated count (number/volume) 3.74 10*6/uL 4.35-5.85 Venous blood hemoglobin measurement (mass/volume) 11.1 g/dL 11.5-16.0 Blood hematocrit (volume fraction) 33 % 35-52 Automated erythrocyte mean corpuscular volume 88 [ foz_us] 80-99 Automated erythrocyte mean corpuscular h emoglobin (mass per erythrocyte) 30 pg 25-34 Automated erythrocyte mean corpuscular h emoglobin concentration measurement (mass/volume) 34 g/dL 32-36 Automated erythrocyte distribution width ratio 13. 0 % 10.0- 14.5 Automated blood platelet count (count/volume) 231 10*3/uL 130-400 Automated blood platelet mean volume measurement 10.8 [foz_us] 7.4-10.4 Comprehensive metabolic panel - 12/25/17 13:30 Serum or plasma sodium measurement (moles/volume) 135 mmol/L 135-145 Serum or plasma potassium measurement (moles/volume) 3.3 mmol/L 3.6-5.0 Serum or plasma chloride measurement (moles/volume) 106 mmol/L 98-107 Carbon dioxide 19 mmol/L 21-32 Serum or plasma anion gap determination (moles/volume) 10 mmol/L 5-14 Serum or plasma urea nitrogen measurement (mass/volume ) 5 mg/dL 7-18 Serum or plasma creatinine measurement (mass/volume) 0.60 mg/dL 0.60-1.30 Serum or plasma urea nitrogen/creatinine mass ratio 8 NRG Serum or plasma creatinine measurement w ith calculation of estimated glomerular filtration rate > NRG Serum or plasma glucose measurement (mass/volume) 94 mg/dL 70-105 Serum or plasma calcium measurement (mass/volume) 8.9 mg/dL 8.5-10.1 Serum or plasma total bilirubin measurement (mass/volu me) 0.5 mg/dL 0.1-1.0 Serum or plasma alkaline phosphatase lenore surement (enzymatic activity/volume) 193 U/L 60-350 Serum or plasma aspartate aminotransfera se measurement (enzymatic activity/volume) 15 U/L 5-34 Serum or plasma alanine aminotransferase measurement (enzymatic activity/volume) 12 U/L 0-55 Serum or plasma protein measurement (mass/volume) 6.5 g/dL 6.4-8.2 Serum or plasma albumin measurement (mass/volume) 3.5 g/dL 3.2-4.5 CALCIUM CORRECTED 9.3 mg/dL 8.5-10.1 BILE ACIDS, FRACTIONATED LCMS - 12/30/17 15:44 CHOLIC ACID 21.5 umol/L < OR = 1.8 DEOXYCHOLIC ACID 3.5 umol/L < OR = 2.4 CHENODEOXYCHOLIC ACID 6.8 umol/L < OR = 3.1 TOTAL BILE ACIDS 31.8 umol/L < OR = 6.8 Complete blood count (CBC) with automate d white blood cell (WBC) differential - 01/01/18 10:05 Blood leukocytes automated count (number/volume) 14.9 10*3/uL 4.3-11.0 Blood erythrocytes automated count (number/volume) 4.31 10*6/uL 4.35-5.85 Venous blood hemoglobin measurement (mass/volume) 12.6 g/dL 11.5-16.0 Blood hematocrit (volume fraction) 37 % 35-52 Automated erythrocyte mean corpuscular volume 85 [ foz_us] 80-99 Automated erythrocyte mean corpuscular h emoglobin (mass per erythrocyte) 29 pg 25-34 Automated erythrocyte mean corpuscular h emoglobin concentration measurement (mass/volume) 34 g/dL 32-36 Automated erythrocyte distribution width ratio 13. 1 % 10.0- 14.5 Automated blood platelet count (count/volume) 270 10*3/uL 130-400 Automated blood platelet mean volume measurement 10.7 [foz_us] 7.4-10.4 Automated blood neutrophils/100 leukocytes 79 % 42-75 Automated blood lymphocytes/100 leukocytes 14 % 12-44 Blood monocytes/100 leukocytes 7 % 0-12 Automated blood eosinophils/100 leukocytes 0 % 0-10 Automated blood basophils/100 leukocytes 0 % 0-10 Blood neutrophils automated count (number/volume) 11.7 10*3 1.8-7.8 Blood lymphocytes automated count (number/volume) 2.1 10*3 1.0-4.0 Blood monocytes automated count (number/volume) 1. 0 10*3 0.0-1.0 Automated eosinophil count 0.0 10*3/uL 0 .0-0.3 Automated blood basophil count (count/volume) 0.0 10*3/uL 0.0-0.1 Blood type T Indirect antibody screen pa hayley - 01/01/18 10:05 ABO+Rh group ON NRG Transfusion band number [id number] NR Blood group antibody screen NEGATIVE NR G Complete blood count (CBC) with automate d white blood cell (WBC) differential - 01/02/18 06:15 Blood leukocytes automated count (number/volume) 11.7 10*3/uL 4.3-11.0 Blood erythrocytes automated count (number/volume) 3.72 10*6/uL 4.35-5.85 Venous blood hemoglobin measurement (mass/volume) 11.2 g/dL 11.5-16.0 Blood hematocrit (volume fraction) 32 % 35-52 Automated erythrocyte mean corpuscular volume 86 [ foz_us] 80-99 Automated erythrocyte mean corpuscular h emoglobin (mass per erythrocyte) 30 pg 25-34 Automated erythrocyte mean corpuscular h emoglobin concentration measurement (mass/volume) 35 g/dL 32-36 Automated erythrocyte distribution width ratio 13. 1 % 10.0- 14.5 Automated blood platelet count (count/volume) 228 10*3/uL 130-400 Automated blood platelet mean volume measurement 10.8 [foz_us] 7.4-10.4 Automated blood neutrophils/100 leukocytes 68 % 42-75 Automated blood lymphocytes/100 leukocytes 21 % 12-44 Blood monocytes/100 leukocytes 10 % 0-12 Automated blood eosinophils/100 leukocytes 0 % 0-10 Automated blood basophils/100 leukocytes 0 % 0-10 Blood neutrophils automated count (number/volume) 8.0 10*3 1.8-7.8 Blood lymphocytes automated count (number/volume) 2.5 10*3 1.0-4.0 Blood monocytes automated count (number/volume) 1. 2 10*3 0.0-1.0 Automated eosinophil count 0.1 10*3/uL 0 .0-0.3 Automated blood basophil count (count/volume) 0.0 10*3/uL 0.0-0.1 Complete urinalysis with reflex to cultu re - 05/29/18 20:54 Urine color determination BROWN NRG Urine clarity determination TURBID NR G Urine pH measurement by test strip 6.0 5-9 Specific gravity of urine by test strip >= 1.016-1.022 Urine protein assay by test strip, semi-quantitative 2+ NEGATIVE Urine glucose detection by automated test strip NE GATIVE NEGATIVE Erythrocytes detection in urine sediment by light micr oscopy 3+ NEGATIVE Urine ketones detection by automated test strip NE GATIVE NEGATIVE Urine nitrite detection by test strip POSITIVE NEGATIVE Urine total bilirubin detection by test strip NEGA TIVE NEGATIVE Urine urobilinogen measurement by automated test strip (mass/volume) 0.2 mg/dL NORMAL Urine leukocyte esterase detection by dipstick 1+ NEGATIVE Automated urine sediment erythrocyte cou nt by microscopy (number/high power field) [HPF] NRG Automated urine sediment leukocyte count by microscopy (number/high power field) [HPF] NRG Bacteria detection in urine sediment by light microsco py MODERATE NRG Squamous epithelial cells detection in u rine sediment by light microscopy 0-2 NRG Crystals detection in urine sediment by light microsco py NONE NRG Casts detection in urine sediment by light microscopy NONE NRG Mucus detection in urine sediment by light microscopy SMALL NRG Complete urinalysis with reflex to culture YES NRG Urine beta human chorionic gonadotropin (hCG) measurement - 05/29/18 20:54 Urine beta human chorionic gonadotropin (hCG) measurem ent NEGATIVE NEGATIVE Bacterial urine culture - 05/29/18 20:54 Bacterial urine culture [id number] NRG COLONY COUNT >100,000/ML NRG FTX;REPORTABLE SUSCEPTIBILITY REPORTED 06-01-18 05. NRG RML Sensitivity Panel - 05/29/18 20:54 Gentamicin susceptibility test by minimum inhibitory c oncentration <= NRG Trimethoprim/sulfamethoxazole susceptibi lity test by minimum inhibitoryconcentration = NRG Levofloxacin susceptibility test by minimum inhibitory concentration <= NRG Ampicillin susceptibility test by minimum inhibitory c oncentration <= NRG Cefazolin susceptibility test by minimum inhibitory co ncentration <= NRG Ceftriaxone susceptibility test by minimum inhibitory concentration <= NRG Ciprofloxacin susceptibility test by minimum inhibitor y concentration <= NRG Meropenem susceptibility test by minimum inhibitory co ncentration <= NRG Nitrofurantoin susceptibility test by mi nimum inhibitory concentration <= NRG Amoxicillin and clavulanate potassium susc BRITTNEE <= NRG CULTURE, URINE - 09/01/18 16:13 CULTURE, URINE, ROUTINE SEE NOTE NRG Complete blood count (CBC) with automate d white blood cell (WBC) differential - 09/25/18 15:38 Blood leukocytes automated count (number/volume) 7.8 10*3/uL 4.3-11.0 Blood erythrocytes automated count (number/volume) 4.32 10*6/uL 4.35-5.85 Venous blood hemoglobin measurement (mass/volume) 12.8 g/dL 11.5-16.0 Blood hematocrit (volume fraction) 37 % 35-52 Automated erythrocyte mean corpuscular volume 86 [ foz_us] 80-99 Automated erythrocyte mean corpuscular h emoglobin (mass per erythrocyte) 30 pg 25-34 Automated erythrocyte mean corpuscular h emoglobin concentration measurement (mass/volume) 35 g/dL 32-36 Automated erythrocyte distribution width ratio 12. 2 % 10.0- 14.5 Automated blood platelet count (count/volume) 257 10*3/uL 130-400 Automated blood platelet mean volume measurement 10.2 [foz_us] 7.4-10.4 Automated blood neutrophils/100 leukocytes 68 % 42-75 Automated blood lymphocytes/100 leukocytes 24 % 12-44 Blood monocytes/100 leukocytes 7 % 0-12 Automated blood eosinophils/100 leukocytes 1 % 0-10 Automated blood basophils/100 leukocytes 0 % 0-10 Blood neutrophils automated count (number/volume) 5.3 10*3 1.8-7.8 Blood lymphocytes automated count (number/volume) 1.9 10*3 1.0-4.0 Blood monocytes automated count (number/volume) 0. 5 10*3 0.0-1.0 Automated eosinophil count 0.1 10*3/uL 0 .0-0.3 Automated blood basophil count (count/volume) 0.0 10*3/uL 0.0-0.1 Serum or plasma choriogonadotropin measu rement (units/volume) - 09/25/18 15:38 Serum or plasma choriogonadotropin measurement (units/ volume) 51075 m[iU]/mL <5 Complete urinalysis with reflex to cultu re - 09/25/18 16:40 Urine color determination YELLOW NRG Urine clarity determination SL CLOUDY N RG Urine pH measurement by test strip 6.0 5-9 Specific gravity of urine by test strip > 1.016-1.022 Urine protein assay by test strip, semi-quantitative NEGATIVE NEGATIVE Urine glucose detection by automated test strip NE GATIVE NEGATIVE Erythrocytes detection in urine sediment by light micr oscopy NEGATIVE NEGATIVE Urine ketones detection by automated test strip NE GATIVE NEGATIVE Urine nitrite detection by test strip NEGATIVE NEGATIVE Urine total bilirubin detection by test strip NEGA TIVE NEGATIVE Urine urobilinogen measurement by automated test strip (mass/volume) 0.2 mg/dL NORMAL Urine leukocyte esterase detection by dipstick TRA CE NEGATIVE Automated urine sediment erythrocyte cou nt by microscopy (number/high power field) NONE NRG Automated urine sediment leukocyte count by microscopy (number/high power field) [HPF] NRG Bacteria detection in urine sediment by light microsco py FEW NRG Squamous epithelial cells detection in u rine sediment by light microscopy 25-50 NRG Crystals detection in urine sediment by light microsco py NONE NRG Casts detection in urine sediment by light microscopy NONE NRG Mucus detection in urine sediment by light microscopy SMALL NRG Complete urinalysis with reflex to culture NO NRG RH IMMUNE GLOBULIN RHOPHYLAC - 09/25/18 20:23 RH IMMUNE GLOBULIN RHOPHYLAC TRANSFUSED 09/25/182049 NRG WRISTBAND NUMBER - 09/25/18 20:23 WRISTBAND NUMBER [id number] NRG [id number] - 09/25/18 20:23 [id number] 300ug NRG Lot number - 09/25/18 20:23 Lot number [id number] NRG cell screen - 09/25/18 20:23 cell screen [id number] NRG cell screen 11/30/20 NRG Bacteria identification in genital speci men by aerobe culture - 09/25/18 20:30 FREE TEXT EXTERNAL PLUS, NRG QUANTITY OF GROWTH . NRG Bacteria identification in genital specimen by aerobe culture UVF NRG Microscopic examination by wet preparati on - 09/25/18 20:30 WET PREP RESULTS 09/25/18 21:00 BY CN NR G Neisseria gonorrhoeae DNA detection by p robe and signal amplification method - 09/25/18 20:30 Gonorrhea amp DNA-urine Not Detected No t Detected Chlamydia trachomatis DNA detection by p robe and signal amplification method - 09/25/18 20:30 Chlamydia trachomatis DNA detection by p robe and target amplification method Not Detected Not Detected Complete urinalysis with reflex to cultu re - 11/01/18 22:08 Urine color determination YELLOW NRG Urine clarity determination SL CLOUDY N RG Urine pH measurement by test strip 6.5 5-9 Specific gravity of urine by test strip 1.020 1.016-1.022 Urine protein assay by test strip, semi-quantitative TRACE NEGATIVE Urine glucose detection by automated test strip NE GATIVE NEGATIVE Erythrocytes detection in urine sediment by light micr oscopy NEGATIVE NEGATIVE Urine ketones detection by automated test strip NE GATIVE NEGATIVE Urine nitrite detection by test strip NEGATIVE NEGATIVE Urine total bilirubin detection by test strip NEGA TIVE NEGATIVE Urine urobilinogen measurement by automated test strip (mass/volume) 0.2 mg/dL NORMAL Urine leukocyte esterase detection by dipstick 1+ NEGATIVE Automated urine sediment erythrocyte cou nt by microscopy (number/high power field) NONE NRG Automated urine sediment leukocyte count by microscopy (number/high power field) [HPF] NRG Bacteria detection in urine sediment by light microsco py MODERATE NRG Squamous epithelial cells detection in u rine sediment by light microscopy TNTC NRG Crystals detection in urine sediment by light microsco py NONE NRG Casts detection in urine sediment by light microscopy NONE NRG Mucus detection in urine sediment by light microscopy MODERATE NRG Complete urinalysis with reflex to culture YES NRG Yeast detection in urine sediment by light microscopy FEW NRG Bacterial urine culture - 11/01/18 22:08 Bacterial urine culture 3 OR MORE NRG COLONY COUNT >100,000/ML NRG FTX;REPORTABLE (GRAM POSITIVE) SUGGESTING PROBABLE NRG FREE TEXT ENTRY 2 COLLECTION CONTAMINATION WITH SK IN ANASTACIA NRG FREE TEXT ENTRY 3 NO SUSCEPTIBILITY PERFORMED NRG Complete blood count (CBC) with automate d white blood cell (WBC) differential - 11/01/18 22:18 Blood leukocytes automated count (number/volume) 10.3 10*3/uL 4.3-11.0 Blood erythrocytes automated count (number/volume) 3.95 10*6/uL 4.35-5.85 Venous blood hemoglobin measurement (mass/volume) 12.0 g/dL 11.5-16.0 Blood hematocrit (volume fraction) 35 % 35-52 Automated erythrocyte mean corpuscular volume 89 [ foz_us] 80-99 Automated erythrocyte mean corpuscular h emoglobin (mass per erythrocyte) 30 pg 25-34 Automated erythrocyte mean corpuscular h emoglobin concentration measurement (mass/volume) 34 g/dL 32-36 Automated erythrocyte distribution width ratio 13. 0 % 10.0- 14.5 Automated blood platelet count (count/volume) 277 10*3/uL 130-400 Automated blood platelet mean volume measurement 10.1 [foz_us] 7.4-10.4 Automated blood neutrophils/100 leukocytes 74 % 42-75 Automated blood lymphocytes/100 leukocytes 19 % 12-44 Blood monocytes/100 leukocytes 6 % 0-12 Automated blood eosinophils/100 leukocytes 1 % 0-10 Automated blood basophils/100 leukocytes 0 % 0-10 Blood neutrophils automated count (number/volume) 7.6 10*3 1.8-7.8 Blood lymphocytes automated count (number/volume) 2.0 10*3 1.0-4.0 Blood monocytes automated count (number/volume) 0. 6 10*3 0.0-1.0 Automated eosinophil count 0.1 10*3/uL 0 .0-0.3 Automated blood basophil count (count/volume) 0.0 10*3/uL 0.0-0.1 PT panel in platelet poor plasma by coag ulation assay - 11/01/18 22:18 Prothrombin time (PT) in platelet poor plasma by coagu lation assay 12.5 s 12.2-14.7 INR in platelet poor plasma or blood by coagulation as say 0.9 0.8-1.4 Activated partial thromboplastin time (a PTT) in platelet poor plasma bycoagulation assay - 11/01/18 22:18 Activated partial thromboplastin time (a PTT) in platelet poor plasma bycoagulation assay 29 s 24-35 Comprehensive metabolic panel - 11/01/18 22:18 Serum or plasma sodium measurement (moles/volume) 137 mmol/L 135-145 Serum or plasma potassium measurement (moles/volume) 3.9 mmol/L 3.6-5.0 Serum or plasma chloride measurement (moles/volume) 99 mmol/L 98-107 Carbon dioxide 19 mmol/L 21-32 Serum or plasma anion gap determination (moles/volume) 19 mmol/L 5-14 Serum or plasma urea nitrogen measurement (mass/volume ) 5 mg/dL 7-18 Serum or plasma creatinine measurement (mass/volume) 0.48 mg/dL 0.60-1.30 Serum or plasma urea nitrogen/creatinine mass ratio 10 NRG Serum or plasma creatinine measurement w ith calculation of estimated glomerular filtration rate > NRG Serum or plasma glucose measurement (mass/volume) 102 mg/dL 70-105 Serum or plasma calcium measurement (mass/volume) 9.3 mg/dL 8.5-10.1 Serum or plasma total bilirubin measurement (mass/volu me) < mg/dL 0.1-1.0 Serum or plasma alkaline phosphatase lenore surement (enzymatic activity/volume) 130 U/L 40-136 Serum or plasma aspartate aminotransfera se measurement (enzymatic activity/volume) 11 U/L 5-34 Serum or plasma alanine aminotransferase measurement (enzymatic activity/volume) 10 U/L 0-55 Serum or plasma protein measurement (mass/volume) 7.2 g/dL 6.4-8.2 Serum or plasma albumin measurement (mass/volume) 3.9 g/dL 3.2-4.5 CALCIUM CORRECTED 9.4 mg/dL 8.5-10.1 Rh - 11/01/18 22:18 WRISTBAND NUMBER TNP NRG Rh D AG - NEGATIVE NRG Microscopic examination by wet preparati on - 11/01/18 22:47 WET PREP RESULTS FEW WBC'S OBSERVED NRG GLUCOSE BAL 1 HOUR - 12/23/18 17:23 GLUCOSE, POSTPRANDIAL/ 1 HOUR 139 mg/dL See Note: GLUCOSE BAL 3 HOUR - 01/19/19 11:57 TIME 1 850 NRG SPECIMEN 1 89 mg/dL 65-99 TIME 2 955 NRG SPECIMEN 2 170 mg/dL NRG TIME 3 1055 NRG SPECIMEN 3 132 mg/dL NRG TIME 4 1155 NRG SPECIMEN 4 93 mg/dL NRG COMMENT NRG CULTURE, GROUP B STREP (VAGINAL) - 02/09 16:24 STREPTOCOCCUS, GROUP B CULTURE SEE NOTE NRG Complete blood count (CBC) with automate d white blood cell (WBC) differential - 02/17/19 20:45 Blood leukocytes automated count (number/volume) 11.8 10*3/uL 4.3-11.0 Blood erythrocytes automated count (number/volume) 3.80 10*6/uL 4.35-5.85 Venous blood hemoglobin measurement (mass/volume) 10.8 g/dL 11.5-16.0 Blood hematocrit (volume fraction) 32 % 35-52 Automated erythrocyte mean corpuscular volume 85 [ foz_us] 80-99 Automated erythrocyte mean corpuscular h emoglobin (mass per erythrocyte) 28 pg 25-34 Automated erythrocyte mean corpuscular h emoglobin concentration measurement (mass/volume) 33 g/dL 32-36 Automated erythrocyte distribution width ratio 12. 9 % 10.0- 14.5 Automated blood platelet count (count/volume) 290 10*3/uL 130-400 Automated blood platelet mean volume measurement 10.7 [foz_us] 7.4-10.4 Automated blood neutrophils/100 leukocytes 70 % 42-75 Automated blood lymphocytes/100 leukocytes 20 % 12-44 Blood monocytes/100 leukocytes 10 % 0-12 Automated blood eosinophils/100 leukocytes 1 % 0-10 Automated blood basophils/100 leukocytes 0 % 0-10 Blood neutrophils automated count (number/volume) 8.2 10*3 1.8-7.8 Blood lymphocytes automated count (number/volume) 2.4 10*3 1.0-4.0 Blood monocytes automated count (number/volume) 1. 2 10*3 0.0-1.0 Automated eosinophil count 0.1 10*3/uL 0 .0-0.3 Automated blood basophil count (count/volume) 0.0 10*3/uL 0.0-0.1 Blood type T Indirect antibody screen pa hayley - 02/17/19 20:45 WRISTBAND NUMBER [id number] NRG ABO+Rh group ON NRG Blood group antibody screen NEGATIVE NR G Complete blood count (CBC) with automate d white blood cell (WBC) differential - 02/19/19 05:25 Blood leukocytes automated count (number/volume) 11.2 10*3/uL 4.3-11.0 Blood erythrocytes automated count (number/volume) 3.70 10*6/uL 4.35-5.85 Venous blood hemoglobin measurement (mass/volume) 10.4 g/dL 11.5-16.0 Blood hematocrit (volume fraction) 32 % 35-52 Automated erythrocyte mean corpuscular volume 87 [ foz_us] 80-99 Automated erythrocyte mean corpuscular h emoglobin (mass per erythrocyte) 28 pg 25-34 Automated erythrocyte mean corpuscular h emoglobin concentration measurement (mass/volume) 33 g/dL 32-36 Automated erythrocyte distribution width ratio 12. 7 % 10.0- 14.5 Automated blood platelet count (count/volume) 273 10*3/uL 130-400 Automated blood platelet mean volume measurement 10.8 [foz_us] 7.4-10.4 Automated blood neutrophils/100 leukocytes 66 % 42-75 Automated blood lymphocytes/100 leukocytes 20 % 12-44 Blood monocytes/100 leukocytes 12 % 0-12 Automated blood eosinophils/100 leukocytes 2 % 0-10 Automated blood basophils/100 leukocytes 0 % 0-10 Blood neutrophils automated count (number/volume) 7.4 10*3 1.8-7.8 Blood lymphocytes automated count (number/volume) 2.2 10*3 1.0-4.0 Blood monocytes automated count (number/volume) 1. 4 10*3 0.0-1.0 Automated eosinophil count 0.2 10*3/uL 0 .0-0.3 Automated blood basophil count (count/volume) 0.0 10*3/uL 0.0-0.1 Encounters ACCT No. Visit Date/Time Discharge Status Pt. Type Provider Facility Loc./Unit Complaint [id number] 02/09/2019 14:20:00 02/09/2019 23:59: 59 CLS Outpatient ELIAS MORAES [facility] [id number] 02/09/2019 14:20:00 Document Registration [id number] 01/19/2019 08:30:00 Document Registration [id number] 12/23/2018 15:40:00 Document Registration [id number] 09/01/2018 15:00:00 Document Registration [id number] 12/30/2017 14:40:00 Document Registration [id number] 12/24/2017 14:20:00 Document Registration [id number] 12/03/2017 14:00:00 Document Registration [id number] 10/30/2017 14:20:00 Document Registration [id number] 09/15/2017 15:00:00 Document Registration [id number] 06/19/2017 15:10:00 Document Registration [id number] 06/19/2017 14:20:00 Document Registration [id number] 02/17/2019 19:30:00 16:00:00 DIS Outpatient ELIAS MORAES MD [facility] LDRP INDUCTION [id number] 02/04/2019 20:53:00 22:02:00 DIS Outpatient MO ALEJANDRO, CHANDRIKA Baron [facility] ER FS LOWER BACK PAIN ALL DAY - 35 WKS PREG [id number] 11/01/2018 21:56:00 23:44:00 DIS Outpatient MONET STEWART MD [facility] ER FS 21 WEEKS PREG- CHEST PA IN,STOMACH PAINS,BLEEDING [id number] 09/25/2018 19:02:00 21:05:00 DIS Outpatient CRAIG PETERSEN DIGITAL ACCOUNT DIRECTOR [facility] ER VAG BLEEDING;16 WKS PRE G [id number] 09/25/2018 15:16:00 17:38:00 DIS Emergency KATHARINA WEIR MD [facility] ER FS CRAMPING,VAGINAL BLEEDI NG [id number] 05/29/2018 20:47:00 21:44:00 DIS Emergency TESS MERCADO DO [facility] ER FS PAIN WITH URINATION, BL EEDING [id number] 01/01/2018 09:04:00 018 14:20:00 DIS Inpatient ELIAS MORAES MD [facility] LDRP CONTRACTIONS;MIGDALIA Garibay [id number] 12/25/2017 07:37:00 018 08:44:00 DIS Inpatient YOVANY CHAUDHARY MD [facility] LDRP CONTRACTIONS [id number] 11/23/2017 02:02:00 018 03:57:00 DIS Emergency MO ALEJANDRO, CHANDRIKA Baron [facility] ER LEG PAIN,32 WEE [place] [id number] 06/02/2016 00:21:00 017 16:50:00 DIS Inpatient YOVANY CHAUDHARY MD [facility] LDRP CONTRACTIONS MIGDALIA Garibay 38 WKS PREG [id number] 04/29/2016 12:58:00 017 23:59:59 CLS Outpatient ELIAS MORAES MD [facility] RAD THIRD TRIMESTER PREGNAN CY
== END 2019-02-20 16:00 | disposition home or self-care (01) | DRG 805 ==
LOC: LDRP 19:30 → EEVIPCON 19:30 → LDRP 02-18 13:02
PROVIDERS: ADMIT Family Medicine; ATTEND Family Medicine
PROC: 3E0DXGC Introduction of Other Therapeutic Substance into Mouth and Pharynx, External Approach (ICD-10-PCS; 2019-02-17)
PROC: 10E0XZZ Delivery of Products of Conception, External Approach (ICD-10-PCS; principal; 2019-02-18)
DX: O26.62 Liver and biliary tract disorders in childbirth (principal); K83.1 Obstruction of bile duct; O99.62 Diseases of the digestive system complicating childbirth; K21.9 Gastro-esophageal reflux disease without esophagitis; O60.14X0 Preterm labor third trimester with preterm delivery third trimester, not applicable or unspecified; O71.82 Other specified trauma to perineum and vulva; O99.344 Other mental disorders complicating childbirth; F32.9 Major depressive disorder, single episode, unspecified; F41.9 Anxiety disorder, unspecified; Z3A.36 36 weeks gestation of pregnancy; Z37.0 Single live birth
CPT/HCPCS: 36415; 85025; 86850; 86900; 86901; 88307

== ENCOUNTER 2019-04-30 20:54 | Emergency (ER) | payer MEDICAID ==
[~2019-04-30] VITALS: Ht 157.8 cm; Wt 91.0 kg
[~2019-04-30 20:54] MED LIST changes: +ACET-78 PO; +METO-310 PO
--- NOTE | 2019-04-30 21:35 | ED Cough/URI ---
General Chief Complaint: Cough/Cold/Flu Symptoms Stated Complaint: FEVER,SORE THROAT,CHEST CALHOUN Nursing Triage Note: Patient complains of sore throat and coughing. Sepsis Screen: No Definite Risk Source: patient History of Present Illness Date Seen by Provider: Apr 30, 2019 Time Seen by Provider: 21:31 Initial Comments Patient's a 19-year-old healthy woman complains of sudden onset today of a cough fever and a sore throat discomfort in the chest when she breathes no vomiting no diarrhea no rash. He's been sick for approximately a week and her partner is sick as well. Timing/Duration: this morning Severity/Quality: mild Modifying Factors: Improves With Coughing Associated Symptoms: chest pain/soreness, cough, fever/chills, nasal congestion, sore throat Allergies and Home Medications Allergies Coded Allergies: No Known Allergies (Verified Allergy, Unknown, 05/29/18) Home Medications Acetaminophen 500 Mg Tablet, 1,000 MG PO Q8HR Prescribed by: ELIAS MORAES on 02/20/19 1126 Ibuprofen 600 Mg Tablet, 600 MG PO Q6HR Prescribed by: ELIAS MORAES on 02/20/19 1126 Vit/Iron Fumarate/FA 1 Each Tablet, 1 EACH PO DAILY, (Reported) Patient Home Medication List Home Medication List Reviewed: Yes Review of Systems Review of Systems Constitutional: see HPI EENTM: see HPI Respiratory: see HPI Cardiovascular: no symptoms reported Gastrointestinal: no symptoms reported Genitourinary: no symptoms reported : No Musculoskeletal: no symptoms reported Skin: no symptoms reported Past Crnxqyf-Wmrntt-Qajkor Hx Patient Social History Alcohol Use: Denies Use Recreational Drug Use: No Smoking Status: Unknown if Ever Smoked 2nd Hand Smoke Exposure: No Recent Foreign Travel: No Contact w/Someone Who Travel: No Recent Infectious Disease Expo: No Recent Hopitalizations: No Physical Abuse: No Sexual Abuse: No Mistreated: No Fear: No Immunizations Up To Date Tetanus Booster (TDap): Less than 5yrs PED Vaccines UTD: Yes Date of Influenza Vaccine: Dec 15, 2017 Seasonal Allergies Seasonal Allergies: No Past Medical History Surgeries: Yes (ORAL SURGERY) Gallbladder, Tonsillectomy Respiratory: No Cardiac: No Neurological: No Female Reproductive Disorders: Denies Sexually Transmitted Disease: No HIV/AIDS: No Genitourinary: No Gastrointestinal: Yes (cholestasis of ) Gall Bladder Disease Musculoskeletal: Yes Fractures Endocrine: No HEENT: No Loss of Vision: Denies Hearing Impairment: Denies Cancer: No Psychosocial: Yes ( depression) Anxiety, Depression Integumentary: No Blood Disorders: No Adverse Reaction/Blood Tranf: No Family Medical History Cardiovascular disease 19 FATHER Completed stroke 19 FATHER Diabetes mellitus PATERNAL GRANDFATHER Hypertension 19 FATHER Kidney disease Myocardial infarction 19 FATHER Physical Exam Vital Signs - First Documented 04/30/19 21:00 Temp 37.5 Pulse 113 Resp 18 B/P (MAP) 138/70 (92) Pulse Ox 98 O2 Delivery Room Air Capillary Refill : Less Than 3 Seconds Height: 5'2.00" Weight: 190lbs. 0.0oz. 86.523872tf; 36.00 BMI Method:Stated General Appearance: WD/WN, no apparent distress HEENT: PERRL/EOMI, normal ENT inspection, TMs normal; No pharynx normal (there is minimal postnasal drainage there is no erythema no palatal petechiae no exudate) Neck: non-tender, full range of motion, supple (there are no tender anterior cervical adenopathy present), normal inspection Respiratory: chest non-tender, lungs clear, normal breath sounds, no respiratory distress Cardiovascular: normal peripheral pulses, regular rate, rhythm, no edema Extremities: normal range of motion Neurologic/Psychiatric: almond grinder II-XII nml as tested, no motor/sensory deficits Skin: normal color, warm/dry Progress/Results/Core Measures Suspected Sepsis Recent Fever Within 48 Hours: No Infection Criteria Present: Suspected New Infection New/Unexplained Altered Menta: No Sepsis Screen: No Definite Risk SIRS Temperature: Pulse: 113 Respiratory Rate: 18 Blood Pressure 138 /70 Mean: 92 Results/Orders Lab Results Laboratory Tests Test 04/30/19 21:24 Range/Units Group A Streptococcus Screen NEGATIVE NEGATIVE Micro Results Microbiology 04/30/19 Influenza Types A,B Antigen (BRITTNEE) - Final, Complete My Orders Orders - DAYANA GARAY DO Influenza A And B Antigens (04/30/19 21:22) Rapid Strep A Screen (04/30/19 21:22) Vital Signs/I&O 04/30/19 04/30/19 21:00 22:07 Temp 37.5 Pulse 113 113 Resp 18 18 B/P (MAP) 138/70 (92) 138/70 Pulse Ox 98 98 O2 Delivery Room Air Room Air Capillary Refill : Less Than 3 Seconds Blood Pressure Mean: 92 Progress Note : Progress Note Patient is a 19-year-old female who was sick with a sore throat and cough and possible fever early this morning's persisted throughout the day the vomiting diarrhea or rash and otherwise has been well recently or any symptoms her babies been sick for approximately 1 week and her partner sick as well Departure Impression Primary Impression: Upper respiratory infection Disposition: HOME, SELF-CARE Condition: Unchanged Departure-Patient Inst. Referrals: ELIAS MORAES MD (PCP/Family) Primary Care Physician Patient Instructions: Cough, Adult (DC), Cough, Runny Nose, and the Common Cold (DC) Add. Discharge Instructions: All discharge instructions reviewed with patient and/or family. Voiced understanding. [id number] cough syrups throat lozenges fluid hydration and bedrest as well as Tylenol would be appropriate DAYANA GARAY DO Apr 30, 2019 21:35
[2019-04-30 22:07] VITALS: BP 138/70
== END 2019-04-30 22:13 | disposition home or self-care (01) ==
LOC: EDUNIT# 20:54 → ER FS 20:56
DX: J06.9 Acute upper respiratory infection, unspecified (principal); Z82.49 Family history of ischemic heart disease and other diseases of the circulatory system
CPT/HCPCS: 87430; 87804

== ENCOUNTER 2019-05-27 09:44 | Emergency (ER) | payer MEDICAID ==
[~2019-05-27] VITALS: Ht 160 cm; Wt 91.3 kg
--- NOTE | 2019-05-27 10:01 | ED Cough/URI ---
General Chief Complaint: Cough/Cold/Flu Symptoms Stated Complaint: COUGH; SORE THROAT; SOB Source: patient Exam Limitations: no limitations History of Present Illness Date Seen by Provider: May 27, 2019 Time Seen by Provider: 10:00 Initial Comments Cough, nasal congestion, sore throat for 4 days. NO fever, no travel outside [place]. saw PCP 2 days ago and given steroids and an inhaler. Frustrated she is not better. Allergies and Home Medications Allergies Coded Allergies: No Known Allergies (Verified Allergy, Unknown, 05/29/18) Home Medications Acetaminophen 500 Mg Tablet, 1,000 MG PO Q8HR Prescribed by: ELIAS MORAES on 02/20/19 112 Ibuprofen 600 Mg Tablet, 600 MG PO Q6HR Prescribed by: ELIAS MORAES on 02/20/19 112 Vit/Iron Fumarate/FA 1 Each Tablet, 1 EACH PO DAILY, (Reported) Patient Home Medication List Home Medication List Reviewed: Yes Review of Systems Review of Systems Constitutional: see HPI; No fever; malaise; No weakness EENTM: nose congestion, throat pain; No hoarseness, No epistaxis, No nose pain, No throat swelling Respiratory: cough; No short of breath, No wheezing Cardiovascular: No chest pain, No palpitations Gastrointestinal: No abdominal pain, No nausea, No vomiting Skin: No change in color, No rash Past Foxdoek-Pnkmdj-Ybdlty Hx Past Med/Social Hx: Reviewed Nursing Past Med/Soc Hx Patient Social History 2nd Hand Smoke Exposure: No Recent Foreign Travel: No Contact w/Someone Who Travel: No Recent Hopitalizations: No Immunizations Up To Date Tetanus Booster (TDap): Less than 5yrs PED Vaccines UTD: Yes Date of Influenza Vaccine: Dec 15, 2017 Seasonal Allergies Seasonal Allergies: No Past Medical History Surgeries: Yes (ORAL SURGERY) Gallbladder, Tonsillectomy Respiratory: No Cardiac: No Neurological: No Female Reproductive Disorders: Denies Sexually Transmitted Disease: No HIV/AIDS: No Genitourinary: No Gastrointestinal: Yes (cholestasis of ) Gall Bladder Disease Musculoskeletal: Yes Fractures Endocrine: No HEENT: No Loss of Vision: Denies Hearing Impairment: Denies Cancer: No Psychosocial: Yes ( depression) Anxiety, Depression Integumentary: No Blood Disorders: No Adverse Reaction/Blood Tranf: No Family Medical History Cardiovascular disease 19 FATHER Completed stroke 19 FATHER Diabetes mellitus PATERNAL GRANDFATHER Hypertension 19 FATHER Kidney disease Myocardial infarction 19 FATHER Physical Exam Capillary Refill : Height: 5'2.00" Weight: 190lbs. 0.0oz. 86.823767qs; 36.00 BMI Method:Stated General Appearance: WD/WN, no apparent distress HEENT: TMs normal, pharyngeal erythema; No tonsillar exudate Neck: supple; No lymphadenopathy (R), No lymphadenopathy (L) Respiratory: lungs clear, normal breath sounds, no respiratory distress, no accessory muscle use; No rales, No rhonchi Cardiovascular: regular rate, rhythm, no edema Gastrointestinal: non tender, soft Neurologic/Psychiatric: normal mood/affect, oriented x 3 Skin: normal color, warm/dry Progress/Results/Core Measures Suspected Sepsis SIRS Temperature: Pulse: Respiratory Rate: Blood Pressure / Mean: Results/Orders Vital Signs/I&O Capillary Refill : Departure Impression Primary Impression: Upper respiratory infection Qualified Codes: J06.9 - Acute upper respiratory infection, unspecified Additional Impression: Bronchitis Disposition: 01 HOME, SELF-CARE Condition: Stable Departure-Patient Inst. Referrals: ELIAS MORAES MD (PCP/Family) Primary Care Physician Patient Instructions: Viral Upper Respiratory Infection, Adult (DC) ASHIA KIRKLAND DO May 27, 2019 10:01
[2019-05-27 10:23] VITALS: BP 132/79
== END 2019-05-27 10:23 | disposition home or self-care (01) ==
LOC: EDUNIT# 09:44 → ER FS 09:45
DX: J06.9 Acute upper respiratory infection, unspecified (principal); J40 Bronchitis, not specified as acute or chronic; Z82.49 Family history of ischemic heart disease and other diseases of the circulatory system
CPT/HCPCS: 99282

== ENCOUNTER 2019-08-22 00:05 | Emergency (ER) | payer MEDICAID ==
[~2019-08-22] VITALS: Ht 157 cm; Wt 92.0 kg
--- NOTE | 2019-08-22 00:27 | ED Cough/URI ---
General Chief Complaint: Respiratory Problems Stated Complaint: BREATHING PROBLEMS Nursing Triage Note: Pt complaining of a cough and shortness of breath that has been going on for about a week. Pt seen at urgent care today and was given an antibiotic and steroid Sepsis Screen: No Definite Risk Source: patient Exam Limitations: no limitations History of Present Illness Date Seen by Provider: Aug 22, 2019 Time Seen by Provider: 00:21 Initial Comments Patient is a 19-year-old female who presents with dry cough, sore throat, shortness of breath with wheezing for the past several days. No history of asthma or chronic respiratory disease. Patient was evaluated at the express care earlier today and prescribed steroids, Zithromax and albuterol inhaler. Patient has had all 3 medications and last used her albuterol inhaler 30 minutes prior to ED arrival. She states she feels as though she is still having difficulty breathing. Does not report fevers chills, sweats, chest pain, chest tightness, leg pain or swelling. No abdominal pain, nausea vomiting. No other acute symptoms or complaints. Patient's currently has an IUD in place does not have regular menstrual periods. Timing/Duration: just prior to arrival Severity/Quality: mild Prior Episodes/Possible Cause: allergen exposure, illness exposure Modifying Factors: Improves With Albuterol Inhaler, Improves With Antibiotics, Improves With Coughing, Improves With Lying Down, Improves With Rest Associated Symptoms: shortness of breath, wheezing Allergies and Home Medications Allergies Coded Allergies: No Known Allergies (Verified Allergy, Unknown, 05/29/18) Home Medications Acetaminophen 500 Mg Tablet, 1,000 MG PO Q8HR Prescribed by: ELIAS MORAES on 02/20/19 112 Ibuprofen 600 Mg Tablet, 600 MG PO Q6HR Prescribed by: ELIAS MORAES on 02/20/19 1126 Vit/Iron Fumarate/FA 1 Each Tablet, 1 EACH PO DAILY, (Reported) Patient Home Medication List Home Medication List Reviewed: Yes Review of Systems Review of Systems Constitutional: see HPI EENTM: see HPI Respiratory: see HPI Cardiovascular: see HPI Gastrointestinal: see HPI Genitourinary: see HPI Musculoskeletal: see HPI Skin: see HPI Psychiatric/Neurological: See HPI Hematologic/Lymphatic: See HPI Immunological/Allergic: see HPI All Other Systems Reviewed Negative Unless Noted: Yes Past Efaefoa-Nzvipg-Egwttq Hx Past Med/Social Hx: Reviewed Nursing Past Med/Soc Hx Patient Social History Alcohol Use: Denies Use Recreational Drug Use: No Smoking Status: Current Everyday Smoker Type Used: Cigarettes 2nd Hand Smoke Exposure: No Recent Foreign Travel: No Contact w/Someone Who Travel: No Recent Infectious Disease Expo: No Recent Hopitalizations: No Physical Abuse: No Sexual Abuse: No Immunizations Up To Date Tetanus Booster (TDap): Less than 5yrs PED Vaccines UTD: Yes Date of Influenza Vaccine: Dec 15, 2017 Seasonal Allergies Seasonal Allergies: No Past Medical History Surgeries: Yes (ORAL SURGERY) Gallbladder, Tonsillectomy Respiratory: No Cardiac: No Neurological: No Female Reproductive Disorders: Denies Sexually Transmitted Disease: No HIV/AIDS: No Genitourinary: No Gastrointestinal: Yes (cholestasis of ) Gall Bladder Disease Musculoskeletal: Yes Fractures Endocrine: No HEENT: No Loss of Vision: Denies Hearing Impairment: Denies Cancer: No Psychosocial: Yes ( depression) Anxiety, Depression Integumentary: No Blood Disorders: No Adverse Reaction/Blood Tranf: No Family Medical History Cardiovascular disease 19 FATHER Completed stroke 19 FATHER Diabetes mellitus PATERNAL GRANDFATHER Hypertension 19 FATHER Kidney disease Myocardial infarction 19 FATHER Physical Exam Vital Signs - First Documented 08/22/19 00:10 Temp 36.2 Pulse 80 Resp 16 B/P (MAP) 150/77 (101) Pulse Ox 99 O2 Delivery Room Air Capillary Refill : Less Than 3 Seconds Height: 5'2.00" Weight: 190lbs. 0.0oz. 86.997925dx; 37.00 BMI Method:Stated General Appearance: no apparent distress Eyes: Bilateral Eye Normal Inspection, Bilateral Eye PERRL, Bilateral Eye Abnormal EOM HEENT: PERRL/EOMI, pharynx normal Neck: non-tender, full range of motion, supple Respiratory: lungs clear, decreased breath sounds (pain next 40 wheezes only.), wheezing, other Cardiovascular: normal peripheral pulses, regular rate, rhythm, no edema, no murmur Gastrointestinal: non tender, soft Neurologic/Psychiatric: container washer II-XII nml as tested, no motor/sensory deficits, alert, normal mood/affect Skin: normal color, warm/dry Focused Exam Sepsis Stage: Ruled Out Progress/Results/Core Measures Suspected Sepsis Recent Fever Within 48 Hours: No Infection Criteria Present: None New/Unexplained Altered Menta: No Sepsis Screen: No Definite Risk SIRS Temperature: Pulse: 80 Respiratory Rate: 16 Blood Pressure 150 /77 Mean: 101 Results/Orders My Orders Orders - AUBRIE PANCHAL DO Chest 1 View Ap/Pa Only (08/22/19 00:19) Albuterol/Ipra Inhalation Soln (Duoneb I (08/22/19 00:30) Svn Small Volume Nebulizer (08/22/19 00:19) Medications Given in ED Current Medications Medications Dose Ordered Sig/Giacomo Route Start Time Stop Time Status Last Admin Dose Admin Albuterol/ Ipratropium 3 ml ONCE ONCE INH 08/22/19 00:30 08/22/19 00:31 DC 08/22/19 00:24 3 ML Vital Signs/I&O 08/22/19 08/22/19 00:10 00:42 Temp 36.2 Pulse 80 92 Resp 16 18 B/P (MAP) 150/77 (101) 136/67 Pulse Ox 99 98 O2 Delivery Room Air Room Air Capillary Refill : Less Than 3 Seconds Blood Pressure Mean: 101 Departure Communication (Admissions) Chest x-ray: Reviewed. Breathing treatment given with improvement. O2 sats 100% on room air. Chest x- ray consistent with atypical infection. Agree with current Current care plan which includes steroids, inhaler and antibiotics. Impression Primary Impression: Bronchitis, acute, with bronchospasm Disposition: HOME, SELF-CARE Condition: Stable Departure-Patient Inst. Referrals: ELIAS MORAES MD (PCP/Family) Primary Care Physician Patient Instructions: Acute Bronchitis Add. Discharge Instructions: Please continue current medications as prescribed, you may use her albuterol inhaler 2 puffs every 2-4 hours. Follow-up with your PCP in 2-3 days for reevaluation. Return to ED if new or worsening symptoms All discharge instructions reviewed with patient and/or family. Voiced understanding. AUBRIE PANCHAL DO Aug 22, 2019 00:26
[2019-08-22] MEDS ORDERED: RT-ALBUTEROL/IPRATROPIUM 3 ML (DUONEB) VIAL INH ONE (00:30)
[2019-08-22 00:42] VITALS: BP 136/67
--- NOTE | 2019-08-22 07:47 | Diagnostic Imaging Report ---
Clinical indications: Patient complaining of cough and shortness of breath that has been going on for about a week. Exam: Portable chest x-ray upright view. Comparisons: None. Findings: Lungs/pleura: Lungs are clear. There is no pneumothorax. There is no pleural effusion. Mediastinum: Unremarkable. Pulmonary vasculature: Unremarkable. Heart: Unremarkable. Bones/extrathoracic soft tissue: Unremarkable. Impression: There is no radiographic evidence of acute cardiopulmonary process. Dictated by: Dictated on workstation # [id number]
== END 2019-08-22 00:49 | disposition home or self-care (01) ==
LOC: EDUNIT# 00:05 → ER FS 00:08
DX: J20.9 Acute bronchitis, unspecified (principal); F17.210 Nicotine dependence, cigarettes, uncomplicated; Z82.49 Family history of ischemic heart disease and other diseases of the circulatory system
CPT/HCPCS: 71045

== ENCOUNTER 2020-02-17 18:27 | Emergency (ER) | payer MEDICAID ==
--- NOTE | 2020-02-17 18:38 | ED Chest Pain ---
General Chief Complaint: Chest Pain Stated Complaint: CHEST PAIN Source: patient Exam Limitations: no limitations History of Present Illness Date Seen by Provider: Feb 17, 2020 Time Seen by Provider: 18:38 Initial Comments 19-year-old female presents with complaint of upper abdominal pain and chest pain occurring intermittently for the past several months. Symptoms are worse the last 2 days. Pain starts in her upper abdomen and she feels it radiate up into her lower chest. History of significant GERD during and she is learn to take Tums, almost daily since then she still gets some relief from it, however doesn't seem to be helping as much now. She does smoke half pack a day as well as drinking a significant amount of Dr. Pepper daily. Denies any recent illness, fever or chills, cough or shortness of air. Denies any palpitations, swelling of extremities or near syncopal events. Allergies and Home Medications Allergies Coded Allergies: No Known Allergies (Verified Allergy, Unknown, 05/29/18) Home Medications Acetaminophen 500 Mg Tablet, 1,000 MG PO Q8HR Prescribed by: ELIAS MEZA on 02/20/19 1126 Famotidine 20 Mg Tablet, 20 MG PO BID Prescribed by: ASHIA LOVESTINE on 02/17/20 1857 Ibuprofen 600 Mg Tablet, 600 MG PO Q6HR Prescribed by: ELIAS MEZA on 02/20/19 1126 Vit/Iron Fumarate/FA 1 Each Tablet, 1 EACH PO DAILY, (Reported) Patient Home Medication List Home Medication List Reviewed: Yes Review of Systems Review of Systems Constitutional: no symptoms reported; No dizziness, No fever, No malaise, No weakness EENTM: No Symptoms Reported Respiratory: Denies Cough, Denies Orthopnea, Denies Shortness of Air, Denies SOA With Exertion, Denies SOA at Rest Cardiovascular: See HPI, Chest Pain (radiating from upper abdomen); Denies Ed obie, Denies Irregular Heart Rate, Denies Lightheadedness, Denies Palpitations, Denies Syncope Gastrointestinal: See HPI, Abdominal Pain; Denies Constipated, Denies Diarrhea, Denies Difficulty Swallowing, Denies Nausea, Denies Poor Appetite, Denies Poor Fluid Intake, Denies Rectal Bleeding, Denies Vomiting Musculoskeletal: No back pain, No joint pain Skin: No change in color, No rash Past Zpyakns-Zhqphp-Obkqnb Hx Past Med/Social Hx: Reviewed Nursing Past Med/Soc Hx Patient Social History Alcohol Use: Denies Use Recreational Drug Use: No Smoking Status: Current Everyday Smoker Type Used: Cigarettes 2nd Hand Smoke Exposure: No Recent Foreign Travel: No Contact w/Someone Who Travel: No Recent Hopitalizations: No Physical Abuse: No Sexual Abuse: No Mistreated: No Fear: No Immunizations Up To Date Tetanus Booster (TDap): Less than 5yrs PED Vaccines UTD: Yes Date of Influenza Vaccine: Dec 15, 2017 Seasonal Allergies Seasonal Allergies: No Past Medical History Surgeries: Yes (ORAL SURGERY) Gallbladder, Tonsillectomy Respiratory: No Cardiac: No Neurological: No Female Reproductive Disorders: Denies Sexually Transmitted Disease: No HIV/AIDS: No Genitourinary: No Gastrointestinal: Yes (cholestasis of ) Gall Bladder Disease Musculoskeletal: Yes Fractures Endocrine: No HEENT: No Loss of Vision: Denies Hearing Impairment: Denies Cancer: No Psychosocial: Yes ( depression) Anxiety, Depression Integumentary: No Blood Disorders: No Adverse Reaction/Blood Tranf: No Family Medical History Cardiovascular disease 19 FATHER Completed stroke 19 FATHER Diabetes mellitus PATERNAL GRANDFATHER Hypertension 19 FATHER Kidney disease Myocardial infarction 19 FATHER Physical Exam Vital Signs Vital Signs - First Documented 02/17/20 18:35 Temp 36.9 Pulse 94 Resp 16 B/P (MAP) 134/82 (99) Pulse Ox 100 Capillary Refill : Height, Weight, BMI Height: 5'2.00" Weight: 190lbs. 0.0oz. 86.654977aa; 37.00 BMI Method:Stated General Appearance: No Apparent Distress, WD/WN Neck: Full Range of Motion, Non Tender, Supple Respiratory: Chest Non Tender, Lungs Clear, Normal Breath Sounds, No Accessory Muscle Use, No Respiratory Distress Cardiovascular: Regular Rate, Rhythm, No Edema, No Gallop, No JVD, Normal Peripheral Pulses Gastrointestinal: Normal Bowel Sounds, No Pulsatile Mass; No Distended, No Guarding, No Hepatomegaly, No Mass, No Rebound, No Splenomegaly; Tenderness (mild epigastric tenderness to palpation) Extremity: Normal Capillary Refill, Non Tender Neurologic/Psychiatric: Alert, Oriented x3, No Motor/Sensory Deficits Progress/Results/Core Measures Results/Orders My Orders Orders - ASHIA KIRKLAND DO Famotidine Tablet (Pepcid Tablet) (02/17/20 19:00) Antacid Suspension (Mylanta Suspension (02/17/20 19:00) Lidocaine 2% Viscous 15 Ml (Xylocaine Vi (02/17/20 19:00) Medications Given in ED Current Medications Medications Dose Ordered Sig/Giacomo Route Start Time Stop Time Status Last Admin Dose Admin Al Hydrox/Mg Hydrox/Simethicone 30 ml ONCE ONCE PO 02/17/20 19:00 02/17/20 19:01 DC 02/17/20 18:59 30 ML Famotidine 20 mg ONCE ONCE PO 02/17/20 19:00 02/17/20 19:01 DC 02/17/20 18:59 20 MG Lidocaine HCl 5 ml ONCE ONCE PO 02/17/20 19:00 02/17/20 19:01 DC 02/17/20 18:59 5 ML Vital Signs/I&O 02/17/20 18:35 Temp 36.9 Pulse 94 Resp 16 B/P (MAP) 134/82 (99) Pulse Ox 100 Departure Impression Primary Impression: Epigastric pain Disposition: HOME, SELF-CARE Condition: Stable Departure-Patient Inst. Decision time for Depature: 18:54 Referrals: ELIAS MEZA MD (PCP/Family) Primary Care Physician Patient Instructions: Chest Pain That Is Not Caused by the Heart (DC), Acid Reflux (Gastroesophageal Reflux Disease), Adult (DC) Add. Discharge Instructions: Follow up simona Meza in 2 weeks, sooner if not improving or worse. Strongly consider Quitting smoking and significantly cut down on your caffeine intake All discharge instructions reviewed with patient and/or family. Voiced understanding. Scripts Famotidine (Pepcid) 20 Mg Tablet 20 MG PO BID, #60 TAB Prov: ASHIA KIRKLAND DO 02/17/20 ASHIA KIRKLAND DO Feb 17, 2020 18:38
[2020-02-17] MEDS ORDERED: FAMO-119 PO (18:57)
[2020-02-17] MEDS ORDERED: ANTACID SUSP 30 ML UDC (MYLANTA) PO ONE (19:00)
[2020-02-17] MEDS ORDERED: LIDOCAINE 2% VISCOUS 15 ML UDC PO ONE (19:00)
[2020-02-17] MEDS ORDERED: FAMOTIDINE 20 MG (PEPCID) TABLET PO ONE (19:00)
[2020-02-17 19:02] VITALS: BP 115/74
== END 2020-02-17 19:14 | disposition home or self-care (01) ==
LOC: EDUNIT# 18:27 → ER FS 18:29
DX: R10.13 Epigastric pain (principal); K21.9 Gastro-esophageal reflux disease without esophagitis; F17.210 Nicotine dependence, cigarettes, uncomplicated; Z82.49 Family history of ischemic heart disease and other diseases of the circulatory system; Z83.3 Family history of diabetes mellitus
CPT/HCPCS: 99285

== ENCOUNTER → 2020-02-23 | Outpatient (CLI) | payer MEDICAID ==
[~2020-02-23] MED LIST changes: +FAMO-119 PO; +GADOBUTROL 10 MMOL/10 ML (GADAVIST) VIAL IV ONE
--- NOTE | 2020-02-23 17:24 | Diagnostic Imaging Report ---
EXAMINATION: MR imaging brain without contrast. TECHNIQUE: Multiplanar, multisequence MR imaging of the brain was performed without contrast. HISTORY: Headache. COMPARISON: None available. FINDINGS: The ventricles and sulci are normal. There are no areas of abnormal signal alteration of the brain parenchyma. There are no extra-axial fluid collections. There are no areas of restricted diffusion or evidence of acute stroke. Flow voids are normal for major intracranial arteries and dural venous sinuses. The visualized paranasal sinuses are normal. The mastoid air cells are clear. The orbits are normal. IMPRESSION: 1. No acute intracranial abnormality. Dictated by: Dictated on workstation # [id number]
== END ==
LOC: RAD 16:26
PROVIDERS: ATTEND Family Medicine
DX: G43.709 Chronic migraine without aura, not intractable, without status migrainosus (principal)
CPT/HCPCS: 70551

== ENCOUNTER 2020-04-23 16:39 | Emergency (ER) | payer OTHER, MEDICAID ==
[~2020-04-23] VITALS: Ht 157.5 cm; Wt 95.7 kg
[~2020-04-23 16:39] MED LIST changes: -GADOBUTROL 10 MMOL/10 ML (GADAVIST) VIAL IV ONE
[2020-04-23 17:01] LABS: BILIRUBIN,URINE NEGATIVE (NEGATIVE); CLARITY,URINE CLOUDY; COLOR,URINE AMBER; GLUCOSE, URINE (UA) NEGATIVE (NEGATIVE); KETONES,URINE NEGATIVE (NEGATIVE); LEUKOCYTE ESTERASE ,URINE TRACE (NEGATIVE); NITRITE,URINE NEGATIVE (NEGATIVE); PROTEIN,URINE TRACE (NEGATIVE)
[2020-04-23 17:02] LABS: BACTERIA,URINE MODERATE /HPF; RBC,URINE TNTC /HPF; SQUAMOUS EPITHELIAL CELL,UR RARE /HPF; WBC,URINE 0-2 /HPF
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
[2020-04-23] MEDS ORDERED: CYCL10TA9 PO (17:16)
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
[2020-04-23 18:09] VITALS: BP 124/79
== END 2020-04-23 18:05 | disposition home or self-care (01) ==
LOC: EDUNIT# 16:39 → ER FS 16:41
DX: S83.412A Sprain of medial collateral ligament of left knee, initial encounter (principal); M54.5 Low back pain; F17.210 Nicotine dependence, cigarettes, uncomplicated; V89.0XXA Person injured in unspecified motor-vehicle accident, nontraffic, initial encounter; Y92.411 Interstate highway as the place of occurrence of the external cause
CPT/HCPCS: 73562; 81000; 84703

== ENCOUNTER 2021-01-25 20:29 | Emergency (ER) | payer MEDICAID, OTHER ==
[~2021-01-25] VITALS: Ht 157 cm; Wt 100.0 kg
[~2021-01-25 20:29] MED LIST changes: +CYCL10TA9 PO; +SERT-413 PO; -SERT50TA9 PO; -SULF1TAB35 PO; +SULF1TAB38 PO
[2021-01-25] MEDS ORDERED: HYDROcodone/APAP 5 MG/325 MG (LORTAB) TAB PO ONE (20:45)
[2021-01-25] MEDS ORDERED: IBUPROFEN 800 MG (MOTRIN) TAB PO ONE (20:45)
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
--- NOTE | 2021-01-25 21:40 | Diagnostic Imaging Report ---
EXAM: Shoulder 3 view left. INDICATION: Left shoulder pain and injury. COMPARISON: None. FINDINGS: No fracture or malalignment. Soft tissue shadows are unremarkable. IMPRESSION: Negative left shoulder radiographs. Dictated by: Dictated on workstation # [id number]
--- NOTE | 2021-01-25 21:41 | Diagnostic Imaging Report ---
EXAM: Tibia fibula 2 view right. INDICATION: Right lower extremity injury and pain. COMPARISON: None. FINDINGS: No fracture or malalignment. Soft tissue shadows are unremarkable. IMPRESSION: No acute radiographic finding in the right tibia or fibula. Dictated by: Dictated on workstation # [id number]
--- NOTE | 2021-01-25 21:41 | Diagnostic Imaging Report ---
EXAM: Ankle 3 view right . INDICATION: Right ankle trauma and pain. COMPARISON: None. FINDINGS: No fracture or malalignment. Soft tissue shadows are unremarkable. IMPRESSION: Negative right ankle radiographs. Dictated by: Dictated on workstation # [id number]
[2021-01-25] MEDS ORDERED: ACHD5005 PO (21:53)
[2021-01-25] MEDS ORDERED: IBUP-1780 PO (21:53)
[2021-01-25 22:01] VITALS: BP 128/83
== END 2021-01-25 22:04 | disposition home or self-care (01) ==
LOC: EDUNIT# 20:29 → ER FS 20:32
DX: S43.402A Unspecified sprain of left shoulder joint, initial encounter (principal); S93.401A Sprain of unspecified ligament of right ankle, initial encounter; S80.811A Abrasion, right lower leg, initial encounter; V00.831A Fall from motorized mobility scooter, initial encounter
CPT/HCPCS: 73030; 73590; 73610

== ENCOUNTER 2021-04-18 13:29 | Emergency (ER) | payer MEDICAID ==
[~2021-04-18] VITALS: Ht 157 cm; Wt 100.0 kg
[~2021-04-18 13:29] MED LIST changes: +ACHD5005 PO; +CYCL10TA25 PO; -CYCL10TA9 PO; +IBUP-1780 PO
[2021-04-18 13:30] VITALS: BP 128/94
--- NOTE | 2021-04-18 13:57 | Diagnostic Imaging Report ---
CHEST PA/LAT (2 VIEW) Indication: Cough Comparison: None available Findings: No pulmonary mass or consolidation. No radiographic features of pulmonary fibrosis. No pleural effusion or pneumothorax. Normal heart size and mediastinal contours. Impression: No acute cardiopulmonary process. Dictated by: Dictated on workstation # [id number]
--- NOTE | 2021-04-18 14:04 | ED Cough/URI ---
General Chief Complaint: Cough/Cold/Flu Symptoms Stated Complaint: COUGH Nursing Triage Note: PT CONTINUES TO HAVE A COUGH WITH NASAL CONGESTION AFTER HAVING COVID. SHE WENT TO AND THEY TESTED HER FOR FLU AND STREP AND THEY WERE NEGATIVE. Source: patient Exam Limitations: no limitations History of Present Illness Date Seen by Provider: Apr 18, 2021 Time Seen by Provider: 13:30 Initial Comments Here with 3 days of fever and as well as persistent cough that she has noted since recovering from Covid last month. Also had elevated blood pressure at her urgent care visit. They did test her for flu and strep and those were negative. She has been doing supportive therapy including adnv-wha-raynifa cough and cold medicine. Denies nausea, vomiting or diarrhea. Eating and drinking okay. Does have nasal congestion and fullness as well as ear fullness and that has been going on the same 3 days as the fever. Does state that she is prone to br onchitis. Timing/Duration: getting worse, other (Few days) Severity/Quality: moderate, dry cough Prior Episodes/Possible Cause: occasional episodes Modifying Factors: Improves With Rest Associated Symptoms: cough, fever/chills, nasal congestion, nasal drainage, wheezing Allergies and Home Medications Allergies Coded Allergies: No Known Allergies (Verified Allergy, Unknown, 05/29/18) Patient Home Medication List Home Medication List Reviewed: Yes Acetaminophen (Acetaminophen) 500 Mg Tablet, 1,000 MG PO Q8HR Prescribed by: ELIAS MORAES on 02/20/191125 Cyclobenzaprine HCl (Cyclobenzaprine HCl) 10 Mg Tablet, 10 MG PO Q8H PRN for SPASMS Prescribed by: MONET STEWART on 04/23/20 171 Famotidine (Pepcid) 20 Mg Tablet, 20 MG PO BID Prescribed by: ASHIA KIRKLAND on 02/17/20 1857 Hydrocodone/Acetaminophen (Hydrocodone-Acetamin 5-325 mg) 1 Each Tablet, 1 TAB PO Q4H PRN for PAIN-MODERATE (5-7) Prescribed by: MATTHEW DEL RIO on 01/25/212152 Ibuprofen (Ibu) 600 Mg Tablet, 600 MG PO Q6HR Prescribed by: ELIAS MORAES on 02/20/191125 Ibuprofen (Ibuprofen) 800 Mg Tablet, 800 MG PO Q8H PRN for PAIN Prescribed by: MATTHEW DEL RIO on 01/25/212152 Vit/Iron Fumarate/FA ( Vitamin Tablet) 1 Each Tablet, 1 EACH PO DAILY, (Reported) Entered as Reported by: ARZ WALTERS on 06/02/16 0135 Review of Systems Review of Systems Constitutional: see HPI; No chills; fever EENTM: nose congestion; No throat pain Respiratory: cough, short of breath Cardiovascular: no symptoms reported Gastrointestinal: No nausea, No vomiting Genitourinary: no symptoms reported Musculoskeletal: no symptoms reported Skin: no symptoms reported Past Endoerp-Bqmjhl-Wannni Hx Patient Social History Tobacco Use?: No Use of E-Cig and/or Vaping dev: Yes E-Cig or Vaping type used: Nicotine Substance use?: No Alcohol Use?: No Pt feels they are or have been: No Immunizations Up To Date Tetanus Booster (TDap): Less than 5yrs PED Vaccines UTD: Yes First/Initial COVID19 Vaccinat: na Second COVID19 Vaccination Enrrique: na Third COVID19 Vaccination Date: na Seasonal Allergies Seasonal Allergies: No Past Medical History Surgeries: Yes Gallbladder, Tonsillectomy Respiratory: No Cardiac: No Neurological: No Female Reproductive Disorders: Denies Sexually Transmitted Disease: No HIV/AIDS: No Genitourinary: No Gastrointestinal: No Gall Bladder Disease Musculoskeletal: No Fractures Endocrine: No HEENT: No Loss of Vision: Denies Hearing Impairment: Denies Cancer: No Psychosocial: No Anxiety, Depression Integumentary: No Blood Disorders: No Adverse Reaction/Blood Tranf: No Family Medical History Reviewed Nursing Family Hx Cardiovascular disease 19 FATHER Completed stroke 19 FATHER Diabetes mellitus PATERNAL GRANDFATHER Hypertension 19 FATHER Kidney disease Myocardial infarction 19 FATHER Physical Exam Vital Signs - First Documented 04/18/21 13:30 Temp 35.6 Pulse 104 Resp 20 B/P (MAP) 128/94 (105) Pulse Ox 97 O2 Delivery Room Air Capillary Refill : Less Than 3 Seconds Height: 5'2.00" Weight: 190lbs. 0.0oz. [id number]; 40.00 BMI Method:Stated General Appearance: WD/WN, no apparent distress HEENT: PERRL/EOMI, other (Mild bulging of both TMs but they are both clear. Moderate erythema bilateral nasal membrane) Neck: full range of motion, supple Respiratory: no respiratory distress, other (Coarse breath sounds with cough) Cardiovascular: regular rate, rhythm, no murmur Gastrointestinal: non tender, soft Neurologic/Psychiatric: alert, oriented x 3 Skin: normal color, warm/dry Progress/Results/Core Measures Suspected Sepsis SIRS Temperature: Pulse: 104 Respiratory Rate: 20 Blood Pressure 128 /94 Mean: 105 Results/Orders My Orders Orders - CHANDRIKA HASSAN MD Chest Pa/Lat (2 View) (04/18/21 13:45) Hcg,Qualitative Urine (04/18/21 13:45) Vital Signs/I&O 04/18/21 04/18/21 13:30 13:30 Temp 35.6 Pulse 104 Resp 20 B/P (MAP) 128/94 (105) Pulse Ox 97 O2 Delivery Room Air Room Air Capillary Refill : Less Than 3 Seconds Blood Pressure Mean: 105 Progress Note : Progress Note Seen and evaluated. X-ray chest as well as UCG ordered. Monitor patient. 1417: Chest x-ray is negative. is negative. We will initiate outpatient steroid as well as albuterol inhaler. She was instructed to stop cough and cold medicine which may be elevating her blood pressure which is one of her concerns. She will initiate Afrin nasal spray or the generic. We will go ahead and initiate antibiotic for possible sinusitis especially in the setting of fever and the persistent upper respiratory infection that she has had over the last month. Patient agrees. Discharged home with return precautions. Patient verbalized understanding instructions and agreement with plan. Diagnostic Imaging Diagonstic Imaging: Xray Plain Films/CT/US/NM/MRI: chest Comments [facility], [place] NAME: EAMON LEHMAN Sedrick [facility] REC#: [id number] PT STATUS: REG ER : 2000 PHYSICIAN: CHANDRIKA HASSAN MD ADMIT DATE: 04/18/21/ER FS Signed Date of Exam:04/18/21 CHEST PA/LAT (2 VIEW) CHEST PA/LAT (2 VIEW) Indication: Cough Comparison: None available Findings: No pulmonary mass or consolidation. No radiographic features of pulmonary fibrosis. No pleural effusion or pneumothorax. Normal heart size and mediastinal contours. Impression: No acute cardiopulmonary process. Dictated by: Dictated on workstation # [id number] Dict: 04/18/21 1355 Trans: 04/18/21 1355 [facility] [phone] Interpreted by: YOHANNES MENDOZA MD Electronically signed by: YOHANNES MENDOZA MD 04/18/21 1355 Departure Impression Primary Impression: Sinusitis Qualified Codes: J01.90 - Acute sinusitis, unspecified Additional Impression: Bronchitis Disposition: 01 HOME, SELF-CARE Condition: Stable Departure-Patient Inst. Decision time for Depature: 14:18 Referrals: ELIAS MORAES MD (PCP/Family) Primary Care Physician Patient Instructions: Sinusitis, Adult (DC), Bronchitis, Adult ED Add. Discharge Instructions: All discharge instructions reviewed with patient and/or family. Voiced understanding. You may take Tylenol/acetaminophen 1000 mg every 8 hours as needed for fever or pain. You may take ibuprofen 600 mg every 8 hours as needed for fever or pain. You may use Afrin nasal spray or the generic, 12 hour relief, 2 sprays to each nostril twice daily for 3 days only and then stop. Do not use more than 3 days. Take other medications as directed. Do not take yczy-vhm-sunuttp cough and cold medicine as these may elevate your blood pressure. You may recheck your blood pressure over the next week or 2 to see if it is remaining high and then follow- up with your doctor regarding this as needed. Follow-up with your Dr. in a few days for recheck. Drink plenty of fluids. Return for worse pain, fever, vomiting, weakness, breathing problems or other concerns as needed. Scripts Albuterol Sulfate (VENTOLIN HFA) 1 Puff Puff 2 PUFF INH Q4H PRN for COUGH, #1 EA 0 Refills 1 PUFF = 90 MCG Prov: CHANDRIKA HASSAN MD 04/18/21 Prednisone (Prednisone) 20 Mg Tab 40 MG PO DAILY, #10 TAB 0 Refills Prov: CHANDRIKA HASSAN MD 04/18/21 Doxycycline Hyclate (Doxycycline Hyclate) 100 Mg Tablet 100 MG PO BID, #20 TAB 0 Refills Prov: CHANDRIKA HASSAN MD 04/18/21 CHANDRIKA HASSAN MD Apr 18, 2021 14:04
[2021-04-18] MEDS ORDERED: PRD20T PO (14:21)
[2021-04-18] MEDS ORDERED: DOXY100T2 PO (14:21)
[2021-04-18] MEDS ORDERED: RT-ALBUINH INH (14:21)
== END 2021-04-18 14:26 | disposition home or self-care (01) ==
LOC: EDUNIT# 13:29 → ER FS 13:31
DX: J32.9 Chronic sinusitis, unspecified (principal); J40 Bronchitis, not specified as acute or chronic
CPT/HCPCS: 71046; 84703

== ENCOUNTER 2021-09-10 22:26 | Emergency (ER) | payer MEDICAID ==
[~2021-09-10] VITALS: Ht 157 cm; Wt 99.7 kg
[~2021-09-10 22:26] MED LIST changes: +DOXY100T2 PO; +PRD20T PO; +RT-ALBUINH INH
[2021-09-10] MEDS ORDERED: ACETAMINOPHEN 500 MG TAB (TYLENOL) PO ONE (23:00)
[2021-09-10 23:07] LABS: BILIRUBIN,URINE NEGATIVE (NEGATIVE); CLARITY,URINE CLEAR; COLOR,URINE YELLOW; GLUCOSE, URINE (UA) NEGATIVE (NEGATIVE); KETONES,URINE NEGATIVE (NEGATIVE); LEUKOCYTE ESTERASE ,URINE NEGATIVE (NEGATIVE); NITRITE,URINE NEGATIVE (NEGATIVE); PROTEIN,URINE NEGATIVE (NEGATIVE)
[2021-09-10 23:18] LABS: BACTERIA,URINE NEGATIVE /HPF
[2021-09-10 23:43] LABS: BASOPHILS % (AUTO) 0 % (0-10); EOSINOPHILS # (AUTO) 0.1 10^3/uL (0.0-0.3); EOSINOPHILS % (AUTO) 1 % (0-10); HEMATOCRIT 37 % (35-52); HEMOGLOBIN 12.5 g/dL (11.5-16.0); LYMPHOCYTES % (AUTO) 34 % (12-44); MEAN CORPUSCULAR HEMOGLOBIN 30 pg (25-34); MEAN CORPUSCULAR HGB CONC 33 g/dL (32-36); MEAN CORPUSCULAR VOLUME 90 fL (80-99); MEAN PLATELET VOLUME 10.1 fL (9.0-12.2); MONOCYTES # (AUTO) 0.6 10^3/uL (0.0-1.0); MONOCYTES % (AUTO) 7 % (0-12); NEUTROPHILS # (AUTO) 5.2 10^3/uL (1.8-7.8); NEUTROPHILS % (AUTO) 58 % (42-75); PLATELET COUNT 267 10^3/uL (130-400)
--- NOTE | 2021-09-11 00:06 | ED GU-Female ---
General Chief Complaint: OB > 20 WEEKS Stated Complaint: 6 WKS PREG - CRAMPING / BLEEDING Nursing Triage Note: PATIENT STATES FRIDAY SHE WAS DIAGNOSED WITH UTI, STATES SIX WEEKS PREG. PATIENT VERBALZED NOTICED FRIDAY WHEN SHE WIPED BLOOD, BUT TODAY ONLY BROWNISH DRAINAGE. PATIENTS STATES LOWER ABDOMINAL CRAMPING AND DISCOMFORT Source: patient Exam Limitations: no limitations History of Present Illness Date Seen by Provider: Sep 11, 2021 Time Seen by Provider: 22:38 Initial Comments Patient is a 21-year-old female who presents to the emergency department today w ith a chief complaint of lower abdominal discomfort. She has been having a brown vaginal discharge for the last 3 or 4 days and she states that she had some bright red blood from her vagina on Friday, 3 days ago. Patient is approximately 6 weeks and 1 day with a last menstrual period of July 29, 2021. She has not established care yet but plans on following with Dr. Moraes. She was diagnosed with a urinary tract infection last week placed on cephalexin. Tomorrow will be her last day of antibiotics. She denies any dysuria, urgency or frequency. No diarrhea. No chest pain or shortness of breath. No recent illnesses. She describes the discomfort in her lower abdomen as a "pressure". Patient states that she is blood type "negative". She has not taken anything for the pain. All other review of systems reviewed and negative except as stated Timing/Duration: other (2-3 days) Severity/Quality: moderate Location: suprapubic Radiation: none Activities at Onset: eating Sexual [place] History: single partner Modifying Factors: Worsens With Movement Associated Symptoms: abdominal pain Allergies and Home Medications Allergies Coded Allergies: No Known Allergies (Verified Allergy, Unknown, 05/29/18) Patient Home Medication List Home Medication List Reviewed: Yes Acetaminophen (Acetaminophen) 500 Mg Tablet, 1,000 MG PO Q8HR Prescribed by: ELIAS MORAES on 02/20/19 1126 Albuterol Sulfate (Ventolin Hfa) 1 Puff Puff, 2 PUFF INH Q4H PRN for COUGH Prescribed by: CHANDRIKA HASSAN on 04/18/21 1421 Cyclobenzaprine HCl (Cyclobenzaprine HCl) 10 Mg Tablet, 10 MG PO Q8H PRN for SPASMS Prescribed by: MONET STEWART on 04/23/20 1716 Doxycycline Hyclate (Doxycycline Hyclate) 100 Mg Tablet, 100 MG PO BID Prescribed by: CHANDRKIA HASSAN on 04/18/21 142 Famotidine (Pepcid) 20 Mg Tablet, 20 MG PO BID Prescribed by: ASHIA KIRKLAND on 02/17/20 185 Hydrocodone/Acetaminophen (Hydrocodone-Acetamin 5-325 mg) 1 Each Tablet, 1 TAB PO Q4H PRN for PAIN-MODERATE (5-7) Prescribed by: MATTHEW DEL RIO on 01/25/212152 Ibuprofen (Ibu) 600 Mg Tablet, 600 MG PO Q6HR Prescribed by: ELIAS MORAES on 02/20/19 112 Ibuprofen (Ibuprofen) 800 Mg Tablet, 800 MG PO Q8H PRN for PAIN Prescribed by: MATTHEW DEL RIO on 01/25/212152 Prednisone (Prednisone) 20 Mg Tab, 40 MG PO DAILY Prescribed by: CHANDRIKA HASSAN on 04/18/211420 Vit/Iron Fumarate/FA ( Vitamin Tablet) 1 Each Tablet, 1 EACH PO DAILY, (Reported) Entered as Reported by: RAZ WALTERS on 06/02/16 0135 Review of Systems Review of Systems Constitutional: see HPI EENTM: no symptoms reported Respiratory: no symptoms reported Cardiovascular: no symptoms reported Gastrointestinal: abdominal pain Genitourinary: no symptoms reported : Yes Expected Date of Delivery: May 06, 2022 LMP: July 29, 2021 Musculoskeletal: no symptoms reported Skin: no symptoms reported Psychiatric/Neurological: No Symptoms Reported All Other Systemes Reviewed Negative Unless Noted: Yes Past Veerphg-Olwwhu-Bpcyno Hx Immunizations Up To Date Tetanus Booster (TDap): Less than 5yrs PED Vaccines UTD: Yes First/Initial COVID19 Vaccinat: na Second COVID19 Vaccination Enrrique: na Third COVID19 Vaccination Date: na Seasonal Allergies Seasonal Allergies: No Past Medical History Surgeries: Yes Gallbladder, Tonsillectomy Respiratory: No Cardiac: No Neurological: No Female Reproductive Disorders: Denies Sexually Transmitted Disease: No HIV/AIDS: No Genitourinary: No Gastrointestinal: No Gall Bladder Disease Musculoskeletal: No Fractures Endocrine: No HEENT: No Loss of Vision: Denies Hearing Impairment: Denies Cancer: No Psychosocial: No Anxiety, Depression Integumentary: No Blood Disorders: No Adverse Reaction/Blood Tranf: No Family Medical History Cardiovascular disease 19 FATHER Completed stroke 19 FATHER Diabetes mellitus PATERNAL GRANDFATHER Hypertension 19 FATHER Kidney disease Myocardial infarction 19 FATHER Physical Exam Vital Signs Vital Signs - First Documented 09/10/21 22:50 Temp 36.9 Pulse 99 Resp 20 B/P (MAP) 144/95 (111) Pulse Ox 99 O2 Delivery Room Air Capillary Refill : Less Than 3 Seconds Height, Weight, BMI Height: 5'2.00" Weight: 190lbs. 0.0oz. 86.829946bw; 40.00 BMI Method:Stated General Appearance: WD/WN, no apparent distress HEENT: PERRL/EOMI Neck: normal inspection Cardiovascular: regular rate, rhythm Respiratory: lungs clear, normal breath sounds, no respiratory distress, no accessory muscle use Gastrointestinal: soft, tenderness (suprapubic) Extremities: normal range of motion, non-tender, normal inspection, no pedal edema, no calf tenderness Neurologic/Psychiatric: alert, normal mood/affect, oriented x 3 Skin: normal color, warm/dry Progress/Results/Core Measures Suspected Sepsis SIRS Temperature: Pulse: 99 Respiratory Rate: 20 Laboratory Tests 09/10/21 23:37: White Blood Count 9.0 Blood Pressure 144 /95 Mean: 111 Laboratory Tests 09/10/21 23:37: Platelet Count 267 Results/Orders Lab Results Laboratory Tests Test 09/10/21 23:00 09/10/21 23:37 Range/Units Urine Color YELLOW Urine Clarity CLEAR Urine pH 6.0 5-9 Urine Specific [place] >=1.030 1.016-1.022 Urine Protein NEGATIVE NEGATIVE Urine Glucose (UA) NEGATIVE NEGATIVE Urine Ketones NEGATIVE NEGATIVE Urine Nitrite NEGATIVE NEGATIVE Urine Bilirubin NEGATIVE NEGATIVE Urine Urobilinogen 0.2 < = 1.0 MG/DL Urine Leukocyte Esterase NEGATIVE NEGATIVE Urine RBC (Auto) 1+ H NEGATIVE Urine RBC 2-5 H /HPF Urine WBC NONE /HPF Urine Squamous Epithelial Cells 5-10 /HPF Urine Crystals NONE /LPF Urine Bacteria NEGATIVE /HPF Urine Casts NONE /LPF Urine Mucus MODERATE H /LPF Urine Culture Indicated NO White Blood Count 9.0 4.3-11.0 10^3/uL Red Blood Count 4.16 3.80-5.11 10^6/uL Hemoglobin 12.5 11.5-16.0 g/dL Hematocrit 37 35-52 % Mean Corpuscular Volume 90 80-99 fL Mean Corpuscular Hemoglobin 30 25-34 pg Mean Corpuscular Hemoglobin Concent 33 32-36 g/dL Red Cell Distribution Width 12.0 10.0-14.5 % Platelet Count 267 130-400 10^3/uL Mean Platelet Volume 10.1 9.0-12.2 fL Immature Granulocyte % (Auto) 1 % Neutrophils (%) (Auto) 58 42-75 % Lymphocytes (%) (Auto) 34 12-44 % Monocytes (%) (Auto) 7 0-12 % Eosinophils (%) (Auto) 1 0-10 % Basophils (%) (Auto) 0 0-10 % Neutrophils # (Auto) 5.2 1.8-7.8 10^3/uL Lymphocytes # (Auto) 3.0 1.0-4.0 10^3/uL Monocytes # (Auto) 0.6 0.0-1.0 10^3/uL Eosinophils # (Auto) 0.1 0.0-0.3 10^3/uL Basophils # (Auto) 0.0 0.0-0.1 10^3/uL Immature Granulocyte # (Auto) 0.1 0.0-0.1 10^3/uL Human Chorionic Gonadotropin, Quant 1442 H <5 MIU/ML My Orders Orders - CHARLETTE MARCUS MD Ed Iv/Invasive Line Start (09/10/21 22:45) Cbc With Automated Diff (09/10/21 22:45) Hcg,Quantitative (09/10/21 22:45) Ua Culture If Indicated (09/10/21 22:45) Acetaminophen Tablet (Tylenol Tablet) (09/10/21 23:00) RH (09/10/21 23:28) Rh Immune Globulin Rhophylac (09/11/21 00:25) Rhogam Administration (09/11/21 00:25) Medications Given in ED Current Medications Medications Dose Ordered Sig/Giacomo Route Start Time Stop Time Status Last Admin Dose Admin Acetaminophen 1,000 mg ONCE ONCE PO 09/10/21 23:00 09/10/21 23:01 DC 09/10/21 22:57 1,000 MG Vital Signs/I&O 09/10/21 22:50 Temp 36.9 Pulse 99 Resp 20 B/P (MAP) 144/95 (111) Pulse Ox 99 O2 Delivery Room Air Capillary Refill : Less Than 3 Seconds Blood Pressure Mean: 111 Progress Note : Time: 00:40 Progress Note bedside ED U/S identified tiny gestational sac. No obvious heartbeat/yolk sac identified. Patient is feeling better after Tylenol. I advised if she should have more bleeding and cramping she should return to the ER for re-evaluation. SHe does not have scheduled follow up with [facility] until the second week of September. I encouraged fluids and tylenol. Rhogam was given. Departure Impression Primary Impression: Threatened miscarriage in early Disposition: HOME, SELF-CARE Condition: Stable Departure-Patient Inst. Decision time for Depature: 00:42 Referrals: ELIAS MORAES MD (PCP/Family) Primary Care Physician Patient Instructions: Threatened Miscarriage Add. Discharge Instructions: Drink plenty of fluids to stay well hydrated. Extra strength Tylenol, 2 pills every 6 hours as needed for cramping. Keep your follow up as scheduled with [facility]. Return to the ED for re-evaluation if you have worsening cramping, heavier bleeding or any other emergent, concerning symptoms. Copy Copies To 1: DANDRE GUERRA KATHRYN M MD Sep 11, 2021 00:05
[2021-09-11 01:35] VITALS: BP 144/95
== END 2021-09-11 01:16 | disposition home or self-care (01) ==
LOC: EDUNIT# 22:26 → ER 22:28
DX: O20.0 Threatened abortion (principal); Z87.440 Personal history of urinary (tract) infections; Z79.2 Long term (current) use of antibiotics; Z3A.01 Less than 8 weeks gestation of pregnancy
CPT/HCPCS: 36415; 81000; 84702; 85025; 86901; 99284

== ENCOUNTER 2021-09-15 11:19 | Emergency (ER) | payer MEDICAID ==
[~2021-09-15] VITALS: Ht 157 cm; Wt 100.0 kg
[2021-09-15 11:30] VITALS: BP 147/94
--- NOTE | 2021-09-15 11:39 | ED GU-Female ---
General Chief Complaint: OB < 20 WEEKS Stated Complaint: VAGINAL BLEEDING,CRAMPING, 7 WEEKS PREG Source: patient Exam Limitations: no limitations History of Present Illness Date Seen by Provider: Sep 15, 2021 Time Seen by Provider: 11:36 Initial Comments Patient is a 21-year-old female who presents to the ED with concern for miscarriage. She states she started having some intermittent bilateral lower abdominal cramping and discomfort last Friday. She did get some improvement until Friday. She was seen here in the ER had lab work drawn and concern for threatened miscarriage. She did receive RhoGAM shot as well. She has been having intermittent vaginal bleeding. Did pass a large clot on Friday. She has been having some mild bleeding with wiping and in her underwear since Friday. She noticed some bleeding this morning. She still having intermittent abdominal discomfort but no severe pain. She is scheduled follow-up with Dr. Krunal PEREZ. She was placed on Keflex for concern for UTI. She is G4, P3. She denies of any urinary symptoms, vaginal discharge, chest pain, shortness of breath, cough, fever, chills. Allergies and Home Medications Allergies Coded Allergies: No Known Allergies (Verified Allergy, Unknown, 05/29/18) Patient Home Medication List Home Medication List Reviewed: Yes Acetaminophen (Acetaminophen) 500 Mg Tablet, 1,000 MG PO Q8HR Prescribed by: ELIAS MORAES on 02/20/19 1126 Albuterol Sulfate (Ventolin Hfa) 1 Puff Puff, 2 PUFF INH Q4H PRN for COUGH Prescribed by: CHANDRIKA HASSAN on 04/18/21 1421 Cyclobenzaprine HCl (Cyclobenzaprine HCl) 10 Mg Tablet, 10 MG PO Q8H PRN for SPASMS Prescribed by: MONET STEWART on 04/23/20 1716 Doxycycline Hyclate (Doxycycline Hyclate) 100 Mg Tablet, 100 MG PO BID Prescribed by: CHANDRIKA HASSAN on 04/18/21 1421 Famotidine (Pepcid) 20 Mg Tablet, 20 MG PO BID Prescribed by: ASHIA KIRKLAND on 02/17/20 1857 Hydrocodone/Acetaminophen (Hydrocodone-Acetamin 5-325 mg) 1 Each Tablet, 1 TAB PO Q4H PRN for PAIN-MODERATE (5-7) Prescribed by: MATTHEW DEL RIO on 01/25/212152 Ibuprofen (Ibu) 600 Mg Tablet, 600 MG PO Q6HR Prescribed by: ELIAS MORAES on 02/20/19 112 Ibuprofen (Ibuprofen) 800 Mg Tablet, 800 MG PO Q8H PRN for PAIN Prescribed by: MATTHEW DEL RIO on 01/25/212152 Prednisone (Prednisone) 20 Mg Tab, 40 MG PO DAILY Prescribed by: CHANDRIKA HASSAN on 04/18/21 1421 Vit/Iron Fumarate/FA ( Vitamin Tablet) 1 Each Tablet, 1 EACH PO DAILY, (Reported) Entered as Reported by: RAZ WALTERS on 06/02/16 0135 Review of Systems Review of Systems Constitutional: No chills, No diaphoresis, No malaise, No weakness EENTM: No blurred vision, No double vision Respiratory: No cough, No dyspnea on exertion Cardiovascular: No chest pain, No edema, No other Gastrointestinal: abdominal pain; No diarrhea, No nausea, No vomiting Genitourinary: other (vaginal bleeding) Musculoskeletal: No back pain, No joint pain Skin: No change in color, No change in hair/nails All Other Systemes Reviewed Negative Unless Noted: Yes Past Awfulwj-Afqsrs-Aqnhdg Hx Immunizations Up To Date Tetanus Booster (TDap): Less than 5yrs PED Vaccines UTD: Yes First/Initial COVID19 Vaccinat: na Second COVID19 Vaccination Enrrique: na Third COVID19 Vaccination Date: na Seasonal Allergies Seasonal Allergies: No Past Medical History Surgeries: Yes Gallbladder, Tonsillectomy Respiratory: No Cardiac: No Neurological: No Female Reproductive Disorders: Denies Sexually Transmitted Disease: No HIV/AIDS: No Genitourinary: No Gastrointestinal: No Gall Bladder Disease Musculoskeletal: No Fractures Endocrine: No HEENT: No Loss of Vision: Denies Hearing Impairment: Denies Cancer: No Psychosocial: No Anxiety, Depression Integumentary: No Blood Disorders: No Adverse Reaction/Blood Tranf: No Family Medical History Cardiovascular disease 19 FATHER Completed stroke 19 FATHER Diabetes mellitus PATERNAL GRANDFATHER Hypertension 19 FATHER Kidney disease Myocardial infarction 19 FATHER Physical Exam Vital Signs Vital Signs - First Documented 09/15/21 11:30 Temp 36.7 Pulse 97 Resp 18 B/P (MAP) 147/94 (111) Pulse Ox 98 Capillary Refill : Height, Weight, BMI Height: 5'2.00" Weight: 190lbs. 0.0oz. 86.389942mn; 40.00 BMI Method:Stated General Appearance: WD/WN, no apparent distress HEENT: PERRL/EOMI, normal ENT inspection, TMs normal, pharynx normal Neck: non-tender, full range of motion, supple, normal inspection Cardiovascular: regular rate, rhythm, no edema, no gallop, no JVD Respiratory: chest non-tender, lungs clear, normal breath sounds, no respiratory distress Gastrointestinal: normal bowel sounds, non tender, soft, no organomegaly Pelvic: normal external exam Back: normal inspection, no CVA tenderness Extremities: normal range of motion, non-tender, normal inspection, no pedal edema Neurologic/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: 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 II-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 nml as tested, no motor/sensory deficits, alert, normal mood/affect, oriented x 3 Skin: normal color, warm/dry Progress/Results/Core Measures Suspected Sepsis SIRS Temperature: Pulse: Respiratory Rate: Laboratory Tests 09/15/21 11:41: White Blood Count 7.6 Blood Pressure / Mean: Laboratory Tests 09/15/21 11:41: Creatinine 0.72, Platelet Count 270, Total Bilirubin 0.4 Results/Orders Lab Results Laboratory Tests Test 09/15/21 11:41 09/15/21 12:22 Range/Units White Blood Count 7.6 4.3-11.0 10^3/uL Red Blood Count 4.45 3.80-5.11 10^6/uL Hemoglobin 13.4 11.5-16.0 g/dL Hematocrit 40 35-52 % Mean Corpuscular Volume 89 80-99 fL Mean Corpuscular Hemoglobin 30 25-34 pg Mean Corpuscular Hemoglobin Concent 34 32-36 g/dL Red Cell Distribution Width 12.2 10.0-14.5 % Platelet Count 270 130-400 10^3/uL Mean Platelet Volume 9.9 9.0-12.2 fL Immature Granulocyte % (Auto) 0 % Neutrophils (%) (Auto) 65 42-75 % Lymphocytes (%) (Auto) 28 12-44 % Monocytes (%) (Auto) 6 0-12 % Eosinophils (%) (Auto) 1 0-10 % Basophils (%) (Auto) 0 0-10 % Neutrophils # (Auto) 4.9 1.8-7.8 10^3/uL Lymphocytes # (Auto) 2.1 1.0-4.0 10^3/uL Monocytes # (Auto) 0.5 0.0-1.0 10^3/uL Eosinophils # (Auto) 0.0 0.0-0.3 10^3/uL Basophils # (Auto) 0.0 0.0-0.1 10^3/uL Immature Granulocyte # (Auto) 0.0 0.0-0.1 10^3/uL Sodium Level 136 135-145 MMOL/L Potassium Level 4.1 3.6-5.0 MMOL/L Chloride Level 103 98-107 MMOL/L Carbon Dioxide Level 23 21-32 MMOL/L Anion Gap 10 5-14 MMOL/L Blood Urea Nitrogen 11 7-18 MG/DL Creatinine 0.72 0.60-1.30 MG/DL Estimat Glomerular Filtration Rate 121 BUN/Creatinine Ratio 15 Glucose Level 109 H 70-105 MG/DL Calcium Level 9.7 8.5-10.1 MG/DL Corrected Calcium 9.4 8.5-10.1 MG/DL Total Bilirubin 0.4 0.1-1.0 MG/DL Aspartate Amino Transf (AST/SGOT) 30 5-34 U/L Alanine Aminotransferase (ALT/SGPT) 45 0-55 U/L Alkaline Phosphatase 103 40-136 U/L Total Protein 7.4 6.4-8.2 GM/DL Albumin 4.4 3.2-4.5 GM/DL Serum Test, Qualitative POSITIVE NEGATIVE Human Chorionic Gonadotropin, Quant 5405 H <5 MIU/ML My Orders Orders - KATT SANTOS Cbc With Automated Diff (09/15/21 11:24) Comprehensive Metabolic Panel (09/15/21 11:24) Hcg,Qualitative Serum (09/15/21 11:24) Hcg,Quantitative (09/15/21 12:22) Vital Signs/I&O 09/15/21 11:30 Temp 36.7 Pulse 97 Resp 18 B/P (MAP) 147/94 (111) Pulse Ox 98 Capillary Refill : Departure Communication (PCP) Patient was seen here on the concerning for threatened miscarriage. She has had some intermittent bleeding with some mild cramping. Bedside ultrasound gestational sac at her last visit. She believes she is around 6 to 7 weeks . She presents to ED for recheck of her beta quant. Beta quant near 5500 which has increased from 1400. She states the bleeding is mild and does occur with wiping and small amount in her underwear. She is G4, P3. She scheduled follow-up with OB Dr. Hector next week on the . She is currently on prenatals. She had no abdominal tenderness on palpation. Her urinalysis was unremarkable for infection on the september 10. She has no current urinary symptoms. Did not provide urine sample. She has no vaginal discharge. she is not anemic with normal liver enzymes and platelet. Patient was given RhoGAM at her last visit. Continue with Tylenol for abdominal cramping. Patient was slightly hypertensive 147/94 and was slightly hypertensive at her last visit. She needs to continue monitoring her blood pressure and follow-up with her OB Impression Primary Impression: Vaginal bleeding during Disposition: 01 HOME, SELF-CARE Condition: Stable Departure-Patient Inst. Decision time for Depature: 13:01 Referrals: ELIAS MORAES MD (PCP/Family) Primary Care Physician Patient Instructions: Bleeding In Early Add. Discharge Instructions: Follow-up with your OB for further evaluation. All discharge instructions reviewed with patient and/or family. Voiced understanding. KATT SANTOS Sep 15, 2021 11:39
[2021-09-15 11:50] LABS: BASOPHILS % (AUTO) 0 % (0-10); EOSINOPHILS % (AUTO) 1 % (0-10); HEMATOCRIT 40 % (35-52); HEMOGLOBIN 13.4 g/dL (11.5-16.0); LYMPHOCYTES # (AUTO) 2.1 10^3/uL (1.0-4.0); LYMPHOCYTES % (AUTO) 28 % (12-44); MEAN CORPUSCULAR HEMOGLOBIN 30 pg (25-34); MEAN CORPUSCULAR HGB CONC 34 g/dL (32-36); MEAN CORPUSCULAR VOLUME 89 fL (80-99); MEAN PLATELET VOLUME 9.9 fL (9.0-12.2); MONOCYTES # (AUTO) 0.5 10^3/uL (0.0-1.0); MONOCYTES % (AUTO) 6 % (0-12); NEUTROPHILS # (AUTO) 4.9 10^3/uL (1.8-7.8); NEUTROPHILS % (AUTO) 65 % (42-75); PLATELET COUNT 270 10^3/uL (130-400); WHITE BLOOD COUNT 7.6 10^3/uL (4.3-11.0)
[2021-09-15 12:10] LABS: ALBUMIN 4.4 GM/DL (3.2-4.5); POTASSIUM 4.1 MMOL/L (3.6-5.0)
[2021-09-15 12:11] LABS: CALCIUM 9.7 MG/DL (8.5-10.1)
[2021-09-15 12:12] LABS: TOTAL PROTEIN 7.4 GM/DL (6.4-8.2)
[2021-09-15 12:14] LABS: BILIRUBIN,TOTAL 0.4 MG/DL (0.1-1.0)
[2021-09-15 12:16] LABS: CREATININE SERUM 0.72 MG/DL (0.60-1.30)
== END 2021-09-15 13:05 | disposition home or self-care (01) ==
LOC: EDUNIT# 11:19 → ER 11:20
DX: O20.9 Hemorrhage in early pregnancy, unspecified (principal); Z28.310 Unvaccinated for COVID-19; Z3A.01 Less than 8 weeks gestation of pregnancy
CPT/HCPCS: 36415; 80053; 84702; 84703; 85025

== ENCOUNTER 2022-04-03 06:28 | Emergency (ER) | payer MEDICAID ==
[~2022-04-03] VITALS: Ht 158 cm; Wt 98.0 kg
--- NOTE | 2022-04-03 07:02 | ED Chest Pain ---
General Chief Complaint: Chest Pain Stated Complaint: CP,SOB,36 WKS PREG Source: patient Exam Limitations: no limitations History of Present Illness Date Seen by Provider: Apr 03, 2022 Time Seen by Provider: 06:45 Initial Comments Patient is a 22-year-old female who presents to the emergency department chief complaint midsternal "sharp" chest pain that started around 1:59 AM this morning. She states she took 2 extra strength Tylenol at 230. Currently rates the pain at a "2". Nothing makes the pain any better or any worse. She states it "comes and goes". She states she is felt "short of breath" the last 2 or 3 days. She is 36 weeks currently, G4, P3. History of delivering around 36 weeks . She has had a little uncomfortable pain in the left lower quadrant of her abdomen as well as the right lower ribs. Currently not short of breath. No productive cough, no fevers chills, runny nose. No excessive nausea or vomiting. She does have cholestasis of . Her labs are being monitored. She saw Dr. Hector with [facility] on Friday of this week, 2 days ago. Denies dysuria, urgency frequency. No abnormal swelling in her legs or pain in her lower legs. No history of blood clot. Family history of coronary artery disease in her father at 50. All other review of systems reviewed and negative except as stated. Timing/Duration: 4-6 hours, intermittent Severity/Quality: sharp Location: substernal Radiation: no radiation Activities at Onset: none Prior CP/Workup: no prior chest pain, no prior cardiac workup ASA po SONOSCOPE OPERATOR: No NTG SL SONOSCOPE OPERATOR: No Associated Symptoms: shortness of breath Allergies and Home Medications Allergies Coded Allergies: No Known Allergies (Verified Allergy, Unknown, 05/29/18) Patient Home Medication List Home Medication List Reviewed: Yes Acetaminophen (Acetaminophen) 500 Mg Tablet, 1,000 MG PO Q8HR Prescribed by: ELIAS MORAES on 02/20/19 1126 Albuterol Sulfate (Ventolin Hfa) 1 Puff Puff, 2 PUFF INH Q4H PRN for COUGH Prescribed by: CHANDRIKA HASSAN on 04/18/21 1421 Cyclobenzaprine HCl (Cyclobenzaprine HCl) 10 Mg Tablet, 10 MG PO Q8H PRN for SPASMS Prescribed by: MONET STEWART on 04/23/20 1716 Doxycycline Hyclate (Doxycycline Hyclate) 100 Mg Tablet, 100 MG PO BID Prescribed by: CHANDRIKA HASSAN on 04/18/21 1421 Famotidine (Pepcid) 20 Mg Tablet, 20 MG PO BID Prescribed by: ASHIA KIRKLAND on 02/17/20 1857 Hydrocodone/Acetaminophen (Hydrocodone-Acetamin 5-325 mg) 1 Each Tablet, 1 TAB PO Q4H PRN for PAIN-MODERATE (5-7) Prescribed by: MATTHEW DEL RIO on 01/25/212152 Ibuprofen (Ibu) 600 Mg Tablet, 600 MG PO Q6HR Prescribed by: ELIAS MORAES on 02/20/19 1126 Ibuprofen (Ibuprofen) 800 Mg Tablet, 800 MG PO Q8H PRN for PAIN Prescribed by: MATTHEW DEL RIO on 01/25/212152 Prednisone (Prednisone) 20 Mg Tab, 40 MG PO DAILY Prescribed by: CHANDRIKA HASSAN on 04/18/21 142 Vit/Iron Fumarate/FA ( Vitamin Tablet) 1 Each Tablet, 1 EACH PO DAILY, (Reported) Entered as Reported by: RAZ WALTERS on 06/02/16 0135 Review of Systems Review of Systems Constitutional: see HPI EENTM: No Symptoms Reported Respiratory: Shortness of Air Cardiovascular: Chest Pain Gastrointestinal: No Symptoms Reported Genitourinary: No Symptoms Reported Musculoskeletal: no symptoms reported Skin: pruritus Psychiatric/Neurological: No Symptoms Reported All Other Systems Reviewed Negative Unless Noted: Yes Past Fzofsyc-Xvyqgw-Iqchjr Hx Patient Social History Tobacco Use?: No Use of E-Cig and/or Vaping dev: Yes E-Cig or Vaping type used: Nicotine Use of E-Cig and/or Vaping Luis: Current Everyday User Substance use?: No Alcohol Use?: No Immunizations Up To Date Tetanus Booster (TDap): Less than 5yrs PED Vaccines UTD: Yes Influenza Vaccine Up-to-Date: No; Not Current First/Initial COVID19 Vaccinat: na Second COVID19 Vaccination Enrrique: na Third COVID19 Vaccination Date: na Seasonal Allergies Seasonal Allergies: No Past Medical History Surgery/Hospitalization HX: A0 Surgeries: Yes Gallbladder, Tonsillectomy Respiratory: No Cardiac: No Neurological: No Female Reproductive Disorders: Denies Sexually Transmitted Disease: No HIV/AIDS: No Genitourinary: No Gastrointestinal: No Gall Bladder Disease Musculoskeletal: No Fractures Endocrine: No HEENT: No Loss of Vision: Denies Hearing Impairment: Denies Cancer: No Psychosocial: No Anxiety, Depression Integumentary: No Blood Disorders: No Adverse Reaction/Blood Tranf: No Family Medical History Cardiovascular disease 19 FATHER Completed stroke 19 FATHER Diabetes mellitus PATERNAL GRANDFATHER Hypertension 19 FATHER Kidney disease Myocardial infarction 19 FATHER Physical Exam Vital Signs Vital Signs - First Documented 04/03/22 06:30 Temp 36.4 Pulse 121 Resp 20 B/P (MAP) 125/75 (92) Pulse Ox 98 O2 Delivery Room Air Capillary Refill : Less Than 3 Seconds Height, Weight, BMI Height: 5'2.00" Weight: 190lbs. 0.0oz. 86.467608qs; 40.00 BMI Method:Stated General Appearance: No Apparent Distress, WD/WN HEENT: PERRL/EOMI Neck: Normal Inspection Respiratory: Lungs Clear, Normal Breath Sounds, No Accessory Muscle Use, No Respiratory Distress; No Decreased Breath Sounds, No Respiratory Distress; Other (Room Air sats 97-98%) Cardiovascular: Regular Rate, Rhythm (HR 107), Normal Peripheral Pulses, Other (reproducible mid sternal chest discomfort (not the same as the "sharp" pain onset at 1-2am) Gastrointestinal: Soft, Other (Gravid, non tender) Extremity: Normal Capillary Refill, Normal Inspection, Normal Range of Motion, Non Tender, No Calf Tenderness, Pedal Edema (mild) Neurologic/Psychiatric: Alert, Oriented x3, No Motor/Sensory Deficits, Normal Mood/Affect Skin: Normal Color, Warm/Dry Progress/Results/Core Measures Results/Orders Lab Results Laboratory Tests Test 04/03/22 07:34 Range/Units Urine Color YELLOW Urine Clarity CLEAR Urine pH 6.0 5-9 Urine Specific Viking >=1.030 1.016-1.022 Urine Protein NEGATIVE NEGATIVE Urine Glucose (UA) NEGATIVE NEGATIVE Urine Ketones NEGATIVE NEGATIVE Urine Nitrite NEGATIVE NEGATIVE Urine Bilirubin NEGATIVE NEGATIVE Urine Urobilinogen 0.2 < = 1.0 MG/DL Urine Leukocyte Esterase NEGATIVE NEGATIVE Urine RBC (Auto) NEGATIVE NEGATIVE Urine RBC RARE /HPF Urine WBC 0-2 /HPF Urine Squamous Epithelial Cells 2-5 /HPF Urine Crystals PRESENT H /LPF Urine Calcium Oxalate Crystals RARE H /LPF Urine Amorphous Sediment RARE RADHA URATES H /LPF Urine Bacteria FEW H /HPF Urine Casts NONE /LPF Urine Mucus SMALL H /LPF Urine Culture Indicated NO My Orders Orders - CHARLETTE MARCUS MD Ekg Tracing (04/03/22 06:36) Heart Tones (04/03/22 07:02) Ua Culture If Indicated (04/03/22 07:02) Vital Signs/I&O 04/03/22 06:30 Temp 36.4 Pulse 121 Resp 20 B/P (MAP) 125/75 (92) Pulse Ox 98 O2 Delivery Room Air Progress Progress Note : Time: 08:18 Progress Note Patient seen and evaluated, 22-year-old G4, P3 with sharp midsternal chest pain since 1:59 AM. Evaluation today includes physical exam with heart tones at 147. EKG, tachycardic at 129 however on physical examination after obtaining a history the patient's heart rate is between 101 07. Complains of mild shortness of breath however exhibits no signs of respiratory distress, is not tachypneic or hypoxic. No complaints of recent URI. She is not having leg swelling, calf pain or other concerning complaints for pulmonary embolism. No family history of clotting disorders. No concerning findings in the HPI or on physical exam for acute coronary syndrome, dissection, pneumothorax, pneumonia. Reassurance provided. Patient has taken Tylenol. We will send her up to women services for further evaluation. Initial ECG Impression Date: Apr 03, 2022 Initial ECG Impression Time: 06:45 Initial ECG Rate: 129 Initial ECG Rhythm: S.Tach Initial ECG Intervals: Normal Comment Inverted T wave lead III; Low voltage lead II; 1mm ST depression leads V2, V3, V4 without reciprocal elevations Departure Impression Primary Impression: Chest pain Qualified Codes: R07.2 - Precordial pain Additional Impression: Term Disposition: 01 HOME, SELF-CARE Condition: Stable Departure-Patient Inst. Decision time for Depature: 08:19 Referrals: ELIAS MORAES MD (PCP/Family) Primary Care Physician Patient Instructions: Chest Pain That Is Not Caused by the Heart (DC) Add. Discharge Instructions: Upon discharge from the ER please go up to women services for further evaluation. You can continue to take Tylenol, extra strength 2 tablets every 6 hours as needed for pain. If you develop worsening shortness of breath especially with cough, bloody sputum, fever or leg swelling, severe headache please come back to the emergency department for reevaluation. Keep your follow-up appointments with your [facility] as scheduled. Copy Copies To 1: ELIAS MORAES MD, KATHRYN M MD Apr 03, 2022 07:02
[2022-04-03 07:43] LABS: BILIRUBIN,URINE NEGATIVE (NEGATIVE); CLARITY,URINE CLEAR; COLOR,URINE YELLOW; GLUCOSE, URINE (UA) NEGATIVE (NEGATIVE); KETONES,URINE NEGATIVE (NEGATIVE); LEUKOCYTE ESTERASE ,URINE NEGATIVE (NEGATIVE); NITRITE,URINE NEGATIVE (NEGATIVE); PROTEIN,URINE NEGATIVE (NEGATIVE)
[2022-04-03 07:54] LABS: BACTERIA,URINE FEW /HPF; RBC,URINE RARE /HPF; WBC,URINE 0-2 /HPF
[2022-04-03 07:55] LABS: AMORPHOUS SEDIMENT,UR RARE AMOR URATES /LPF; CALCIUM OXALATE CRYSTALS,UR RARE /LPF
[2022-04-03 08:34] VITALS: BP 118/79
[2022-04-03] MEDS ORDERED: MTC10T PO (09:08)
[2022-04-03] MEDS ORDERED: ONDA4TAB11 PO (09:10)
[2022-04-03] MEDS ORDERED: URSO300C3 PO (09:11)
== END 2022-04-03 08:34 | disposition home or self-care (01) ==
LOC: EDUNIT# 06:28 → ER 06:31
DX: O99.891 Other specified diseases and conditions complicating pregnancy (principal); R07.2 Precordial pain; O99.333 Smoking (tobacco) complicating pregnancy, third trimester; F17.290 Nicotine dependence, other tobacco product, uncomplicated; Z28.310 Unvaccinated for COVID-19; Z3A.36 36 weeks gestation of pregnancy
CPT/HCPCS: 81000; 93005

== ENCOUNTER 2022-04-03 08:39 | Outpatient (CLI) | payer MEDICAID ==
[~2022-04-03] VITALS: Ht 157.4 cm; Wt 98.3 kg
[2022-04-03] MEDS ORDERED: MTC10T PO (09:08)
[2022-04-03] MEDS ORDERED: ONDA4TAB11 PO (09:10)
[2022-04-03] MEDS ORDERED: URSO300C3 PO (09:11)
[2022-04-03 09:14] VITALS: BP 126/73
[2022-04-03 10:24] LABS: ALBUMIN 3.2 GM/DL (3.2-4.5); BILIRUBIN,TOTAL 0.4 MG/DL (0.1-1.0); CALCIUM 9.2 MG/DL (8.5-10.1); CREATININE SERUM 0.58 MG/DL (0.60-1.30); POTASSIUM 3.6 MMOL/L (3.6-5.0); TOTAL PROTEIN 6.8 GM/DL (6.4-8.2)
[2022-04-03] MEDS ORDERED: hydrOXYzine (VISTARIL/ATARAX) 25 MG capsule/tablet PO ONE (11:00)
[2022-04-03] MEDS ORDERED: ACETAMINOPHEN 500 MG TAB (TYLENOL) PO ONE (11:00)
[2022-04-03 13:39] VITALS: BP 126/73
--- NOTE | 2022-04-04 08:34 | Physician Query-Final Dx ---
Clinic Account Progress/Dx Physician Query: Please give diagnosis Please include # weeks gestation Date of Service Apr 03, 2022 at 08:39 ANA ROSA,MarApr 04, 2022 08:34
== END 2022-04-03 13:54 | disposition home or self-care (01) ==
LOC: LDRP 08:39 → WSo 08:39
PROVIDERS: ATTEND Family Medicine
DX: O26.899 Other specified pregnancy related conditions, unspecified trimester (principal); R10.9 Unspecified abdominal pain; Z3A.00 Weeks of gestation of pregnancy not specified
CPT/HCPCS: 36415; 80053; 99213

== ENCOUNTER 2022-04-16 06:44 | Inpatient (IN) | payer MEDICAID ==
[~2022-04-16] VITALS: Ht 157.5 cm; Wt 98.5 kg
[2022-04-16] VITALS (52 sets, daily range): BP systolic 98–127; BP diastolic 53–87
[~2022-04-16 06:44] MED LIST changes: +MTC10T PO; +ONDA4TAB11 PO; +URSO300C3 PO
--- OUTSIDE RECORDS SUMMARY | 2022-04-16 06:51 | XMS REPORT ---
Author Author [facility] Address Unknown Phone Unavailable Care Team Providers Care Vice President Marketing & Development Name Role Phone ELIAS MORAES Unavailable PROBLEMS Type Condition ICD9-CM Code BMQ26-GP Code Onset Dates Condition S tatus W/U Status Risk SNOMED Code Notes Problem Pre-employment drug testing, encounter for Z02.1 confirmed 468410035 Problem Family history of heart disease Z82.49 confi rmed 260452169 Problem Keratosis pilaris L85.8 confirmed 51 84231 Problem Generalized anxiety disorder F41.1 confirme d 79137408 Problem Major depressive disorder, recurrent episode, moderate F33.1 confirmed 793332745 Problem Anxiety F41.9 confirmed 79287094 Problem Migraine without aura and without status migrain osus, not intractable G43.009 confirmed 238213313 Problem Acne vulgaris L70.0 confirmed 938486 00 Problem Maternal care for anti-D [Rh] antibodies, third trimester, fetus 1 O36.0131 confirmed Problem GERD with esophagitis K21.0 confirmed 790167798 Problem Migraine aura, persistent G43.509 confirmed 282705636 Problem Headache, chronic migraine without aura G43.709 confirmed [id number] Problem Migraine headache with aura G43.109 confirme d 7049693 Problem Chronic migraine with aura G43.109 confirmed 3080510 ALLERGIES No Known Allergies ENCOUNTERS from 1999 to 2022 Encounter Location Date Provider Diagnosis [facility] [address] [facility] [id number] [place] [address] [facility] Vaccine Route Administration Date Status PRIVATE FLULAVAL QUAD 0.5ML (6 MO AND UP) 2018 IM Intramuscular Dec 23, 2018 Administered PRIVATE FLULAVAL QUAD 0.5ML (6 MO AND UP) 2019 IM Intramuscular Dec 15, 2017 Administered FLUARIX QUAD P-FREE 3 AND UP .50 2015 IM Intramuscular Mar 05 016 Administered PRIVATE TDAP (BOOSTRIX) IM Intramuscular Feb 26, 2022 Adminis tered PRIVATE TDAP (BOOSTRIX) IM Intramuscular Jan 06, 2019 Adminis tered PRIVATE TDAP (BOOSTRIX) IM Intramuscular Nov 20, 2017 Adminis tered PRIVATE TDAP (BOOSTRIX) IM Intramuscular Apr 03, 2016 Adminis tered SOCIAL HISTORY Sex Assigned At : Social History Observation Description Sex Assigned At Unknown Alcohol Screen (Audit-C) Question Answer Notes Did you have a drink containing alcohol in the past year? Ye s Points 1 Interpretation Negative How often did you have 6 or more drinks on one occasio n in the past year? Never (0 points) How many drinks did you have on a typica l day when you were drinking in the past year? 1 or 2 (0 points) How often did you have a drink containing alcohol in t he past year? Monthly or less (1 point) Cessation Question Answer Notes Date Tobacco Cessation Provided: 09/19/2021 Sexual History Question Answer Notes Had sex in the past 12 months (vaginal, oral, or anal)? Yes Last menstrual period 07/28/2021 Have you ever had a Sexually transmitted disease? No with Men only Use protection? No PHQ2 Question Answer Notes In the last 2 weeks, how often have you had little interest or pleasure in doing things? Not at all In the last 2 weeks, how often have you been feeling down, depressed, or hopeless? Not at all Total PHQ2 Score 0 Tobacco use other than smoking: Question Answer Notes Are you an other tobacco user? No REASON FOR REFERRAL No Information VITAL SIGNS No information MEDICATIONS Medication SIG (Take, Route, Frequency, Duration) Notes Start Da te End Date Status Ondansetron HCl 4 MG TAKE 1 TABLET BY MOUTH EVERY 8 HOURS NEEDED for 10 Active Famotidine 20 MG 1 tablet Orally Twice a day for 30 day(s) Nov, Active 27-1 MG 1 tablet Orally Once a day Active Metoclopramide HCl 10 MG 1 tablet Orally Once a day for 30 day(s ) 10 Oct, 2021 Active PROCEDURES No Information RESULTS No Results REASON FOR VISIT referral MEDICAL (GENERAL) HISTORY Type Description Date Medical History acid reflux Medical History depression Medical History acne Surgical History cholecystectomy Dec 2014 Surgical History tonsillectomy and adenoidectomy Surgical History dental surg with anesthesia age 4 Hospitalization History Stress/depression. 1 week in Psychi atic unit Mar 2015 Hospitalization History pneumonia age 9 Hospitalization History OB observation in [facility], due to P T falling May 2016 Hospitalization History childbirth Feb 2019 Hospitalization History childbirth May 2016 Hospitalization History childbrith December 2017 Goals Section No Information Health Concerns No Information MEDICAL EQUIPMENT No Information MENTAL STATUS No Information FUNCTIONAL STATUS No Information ASSESSMENTS No Information PLAN OF TREATMENT Medication Medication Name Sig Start Date Stop Date Ondansetron HCl 4 MG TAKE 1 TABLET BY MOUTH EVERY 8 HOURS NEE DED for 10 Next Appt Details Provider Name:SYED LISA, 04:20:00 PM, [address] [place], [address], Insurance Providers Payer Name Payer Address Payer Phone Insured Name Patient Relati onship to Insured Coverage Start Date Coverage End Date Subscriber Number Group Nu mber [facility] [address] [facility] [id number] Bryan Bustamante Self - patient is the insured 2022 [facility] [employer] [address] [address] [facility] [address] [phone] Bryan Bustamante Self - patient is the insured 2016 2018 [id number] RCM Missing insurance scan copy of card into pt doc Bryan Bustamante Self - patient is the insured [id number] [facility] [address] [address] [facility] [address] [phone] Bryan Bustamante Self - patient is the insured 2016 [id number] MEDICATIONS ADMINISTERED Medication Instructions Date of Administration Dosage Ketorolac Tromethamine July, 30 mL Rho D Immune Globulin Jan, 300 mcg DEPO PROVERA (150 MG/ML) July, 150 mg DEPO PROVERA (150 MG/ML) Aug, 150 mg PHENERGAN (IM) 12.5 MG (25 MG/ML) Sep, .5 mg RHOGAM FULL DOSE Mar, RHOGAM FULL DOSE Nov, RHOGAM FULL DOSE Dec, 1500 U TORADOL 60 MG/2ML (KETOROLAC) Sep, 1 mg Benadryl July, 25 mL BENADRYL (DIPHENHY HCL) 50 MG/ML (UP TO 50 MG) 2 4 Sep, 2019 .5 mg
[2022-04-16] MEDS ORDERED: MINERAL OIL 30 ML UDC TOP PRN (07:30)
--- NOTE | 2022-04-16 07:49 | History & Physical-OB ---
LAURY CASTLE 04/16/22 0749: OB - Chief Complaint & HPI Date/Time Date of Admission: Date of Admission: Apr 16, 2022 at 06:44 Date seen by a Provider: Apr 16, 2022 Time Seen by a Provider: 07:45 Chief Complaint/History OB-Reason for Admission/Chief: Induction of Labor Hx : 4 Hx Para: 3 Hx Last Menstrual Period: 07/15/2021 Expected Date of Delivery: May 04, 2022 Gestational Age in Weeks: 37 Gestational Age in Days: 3 Indication for induction: post dates Admission Nurse Assessment Rev: Yes Allergies and Home Medications Allergies Coded Allergies: No Known Allergies (Verified Allergy, Unknown, 05/29/18) Patient Home Medication List Home Medication List Reviewed: Yes Famotidine (Pepcid) 20 Mg Tablet, 20 MG PO BID Prescribed by: ASHIA KIRKLAND on 02/17/20 185 Metoclopramide HCl (Metoclopramide HCl) 10 Mg Tablet, 10 MG PO DAILY, (Reported) Entered as Reported by: BETH CAROLINA on 04/03/22 0908 Ondansetron (Ondansetron Odt) 4 Mg Tab.rapdis, 4 MG PO Q4H PRN for NAUSEA/VOMITING, (Reported) Entered as Reported by: BETH CAROLINA on 04/03/22 0910 Vit/Iron Fumarate/FA ( Vitamin Tablet) 1 Each Tablet, 1 EACH PO DAILY, (Reported) Entered as Reported by: RAZ WALTERS on 06/02/16 0135 Ursodiol (Ursodiol) 300 Mg Capsule, 300 MG PO BID, (Reported) Entered as Reported by: BETH CAROLINA on 04/03/22 0911 OB - History Hx of Present Care: Yes Ultrasounds: Normal mid trimester US Obstetrical Complications: None Medical Complications: None Information Induced Hypertension: No Maternal Gestational Diabetes: No Hemorrhage: No Obstetrical History Hx : 4 Hx Para: 3 Hx # Term Pregnancies: 3 Hx # Pregnancies: 0 Number of Living Children: 3 Hx Termination: No Hx Multiple Gestation: No Hx Ectopic : No Hx Stillbirth: No Hx Complication: No Hx Induced Hypertens: No Hx Maternal Gestational Diabet: No Hx Hemorrhage: No Delivery History Hx Dystocia: No Hx Forceps Assisted Delivery: No Hx Vacuum Extraction Assisted: No Hx Placenta Abnormality: No Hx Distress: No Hx Large For Gestational Age I: No Hx Small for Gestational Age I: No Hx Section: No Hx Vaginal Delivery Post C-Sec: No Hx Blood Disorders: No Adverse Rxn to Tranfusion: No Patient Past Medical History PMHx: Depression GERD Anxiety PSurgHx: Tonsillectomy and adenoidectomy Cholecystectomy Social History/Family History Alcohol Use: Denies Use Recreational Drug Use: No Smoking Cessation: Current some day smoker (Vapes) 2nd Hand Smoke Exposure: No Immunizations Influenza Vaccine Up-to-Date: No; Not Current First/Initial COVID19 Vaccine: na Second COVID19 Vaccination: na Third COVID19 Vaccination Date: na Hepatitis A: Yes Hepatitis B: Yes Tetanus Booster (TDap): Less than 5yrs Rubella: immune RPR/VDRL: Negative GBS Status: Negative HBsAG: Negative OB - Admission Exam Physical Exam HEENT: Comment: (Patient congested with clear mucoid discharge from nostrils) Heart: Rhythm Normal Lungs: Clear Abdomen: Non tender Extremities: Normal Membranes: Intact Accelerations: Accelerations Present Decelerations: No Decelerations Short Term Variability: Present Pricing Strategist Variability: Average (6-25) Contractions on Admission: None OB - Assessment/Plan/Diagnosis Assessment Assessment: induction of labor Admission Iban Adams is a 22yo F at 37w3d presenting for induction of labor. She has had no complications throughout her and normal US findings. Patient had an ear infection about two weeks ago and finished a course of amoxicillin. She has been feeling congested the past week but denies fevers, nausea, and vomiting. Reports she is not having contractions at this time and has had no vaginal bleeding or discharge. Admission Status: Observation Plan Plan: Expectant Management Induction Method: per Misoprostol Protocol Problems: (1) 37 weeks gestation of Assessment & Plan: Patient will receive IV dextrose and lactated ringers and will have their water broken by Dr. Moraes. Cervical checks will be done to monitor progression of labor and heart monitoring will be done as well. Expectant management will be done for delivery. Copy Copies To 1: ELIAS MORAES MD, HOLLY R MD 04/16/22 0933: OB - Chief Complaint & HPI Date/Time Time Seen by a Provider: 08:45 Chief Complaint/History OB-Reason for Admission/Chief: Induction of Labor (Cholestatis of ) Allergies and Home Medications Allergies Coded Allergies: No Known Allergies (Verified Allergy, Unknown, 05/29/18) Patient Home Medication List Famotidine (Pepcid) 20 Mg Tablet, 20 MG PO BID Prescribed by: ASHIA KIRKLAND on 02/17/20 1187 Metoclopramide HCl (Metoclopramide HCl) 10 Mg Tablet, 10 MG PO DAILY, (Reported) Entered as Reported by: BETH CAROLINA on 04/03/22 0908 Ondansetron (Ondansetron Odt) 4 Mg Tab.rapdis, 4 MG PO Q4H PRN for NAUSEA/VOMITING, (Reported) Entered as Reported by: BETH CAROLINA on 04/03/22 0910 Vit/Iron Fumarate/FA ( Vitamin Tablet) 1 Each Tablet, 1 EACH PO DAILY, (Reported) Entered as Reported by: RAZ WALTERS on 06/02/16 0135 Ursodiol (Ursodiol) 300 Mg Capsule, 300 MG PO BID, (Reported) Entered as Reported by: BETH CAROLINA on 04/03/22 0911 OB - Admission Exam Cheatham Scoring Tool (Modified) Dilation (cm): 3-4cm (2) Effacement (%): 51-79% (2) Descent/Station: -1,0 (2) Cervix Consistency: Soft (2) Cervix Position: Middle/Mid-Position (1) Add 1 point for: Each previous vaginal delivery (1) Cheatham Score: 10 OB - Assessment/Plan/Diagnosis Assessment Admission Dx Third Trimester 37 week gestation Cholestatis in Admission Status: Inpatient Order (span 2 midnights) Reason for Inpatient Admission: Labor and delivery Supervisory-Addendum Brief Supervisory Addendum Verification and Attestation of Medical Student E/M Service A medical student performed and documented this service in my presence. I reviewed and verified all information documented by the medical student and made modifications to such information, when appropriate. I personally performed the physical exam and medical decision making. Elias Moraes, Apr 16, 2022,09:30 22 yo @ 37 wks gestation here for IOL for cholestatis of with severe symptoms Plan - Pitocin Protocol - AROM when engaged - GBS neg - Ok for epidural when patient desires LAURY CASTLE 31, 2023 07:49 ELIAS MORAES MD Apr 16, 2022 09:33
[2022-04-16 07:54] LABS: BASOPHILS % (AUTO) 0 % (0-10); EOSINOPHILS # (AUTO) 0.1 10^3/uL (0.0-0.3); EOSINOPHILS % (AUTO) 0 % (0-10); HEMATOCRIT 32 % (35-52); HEMOGLOBIN 10.6 g/dL (11.5-16.0); LYMPHOCYTES # (AUTO) 2.2 10^3/uL (1.0-4.0); LYMPHOCYTES % (AUTO) 20 % (12-44); MEAN CORPUSCULAR HEMOGLOBIN 28 pg (25-34); MEAN CORPUSCULAR HGB CONC 34 g/dL (32-36); MEAN CORPUSCULAR VOLUME 84 fL (80-99); MEAN PLATELET VOLUME 11.1 fL (9.0-12.2); MONOCYTES # (AUTO) 0.8 10^3/uL (0.0-1.0); MONOCYTES % (AUTO) 7 % (0-12); NEUTROPHILS % (AUTO) 72 % (42-75); PLATELET COUNT 256 10^3/uL (130-400); WHITE BLOOD COUNT 11.2 10^3/uL (4.3-11.0)
[2022-04-16] MEDS: D5 LR IV SOLUTION 1,000 ML IV SCH ×2 (08:07→16:04)
[2022-04-16] MEDS ORDERED: OXYTOCIN PRE-MIX DRIP 500 ML IV SCH (09:00)
[2022-04-16] MEDS: LACTATED RINGERS 1,000 ML IV SCH ×2 (09:30→11:31)
[2022-04-16] MEDS ORDERED: AMOX500T2 PO (09:46)
[2022-04-16 09:49] LABS: ALBUMIN 3.2 GM/DL (3.2-4.5); BILIRUBIN,TOTAL 0.6 MG/DL (0.1-1.0); CALCIUM 9.5 MG/DL (8.5-10.1); CREATININE SERUM 0.64 MG/DL (0.60-1.30); POTASSIUM 3.6 MMOL/L (3.6-5.0)
[2022-04-16] MEDS ORDERED: fentaNYL 2 mcg/ml BUPIVA 0.125 100 ML ONE (10:08)
[2022-04-16] MEDS ORDERED: BUPIVACAINE 0.25% 10 ML (SENSORCAINE) VIAL ONE ×2 (10:56→15:53)
[2022-04-16] MEDS ORDERED: fentaNYL INJ 100 MCG/2 ML AMP ONE ×2 (10:56→23:27)
[2022-04-16] MEDS ORDERED: diphenhydrAMINE 50 MG/ML INJ (BENADRYL) IV PRN (11:00)
[2022-04-16] MEDS ORDERED: ONDANSETRON 4 MG/2 ML (SDV) Z0FRAN IV PRN (11:00)
[2022-04-16] MEDS ORDERED: NALOXONE 0.4 MG/ML 1 ML (NARCAN) VIAL IV PRN (11:00)
[2022-04-16] MEDS ORDERED: fentaNYL 2 mcg/ml BUPIVA 0.125 100 ML EPI SCH (11:00)
--- NOTE | 2022-04-16 12:21 | Labor Progress Note ---
Labor Progress Note Labor Progress Note Date Seen by Provider: Apr 16, 2022 Time Seen by Provider: 12:05 Subjective: Pt denies complaints. Comfortable with epidural. Objective: /-2 Assessment/Plan: Bryan Bustamante is a (22 /Para 4 / 3,Gestational Age (wks)37.3 here for IOL for Cholestasis in CEFM/TOCO Continue pitocin per protocol Anesthesia: Epidural AROM 1210 Clear GBS neg Anticipate vaginal delivery. Vitals - Labs Vital Signs - I&O Vital Signs Date Time Temp Pulse Resp B/P (MAP) Pulse Ox O2 Delivery O2 Flow Rate FiO2 04/16/22 11:15 102 18 126/68 (87) 97 Room Air 04/16/22 11:10 127 18 116/82 (93) 99 Room Air 04/16/22 11:05 114 18 105/61 (76) 100 Room Air 04/16/22 11:00 99 18 114/71 (85) Room Air 04/16/22 10:45 91 18 106/54 (71) Room Air 04/16/22 10:30 90 18 113/56 (75) Room Air 04/16/22 10:15 92 18 115/59 (77) Room Air 04/16/22 10:00 96 18 115/78 (90) Room Air 04/16/22 09:45 89 18 112/56 (74) Room Air 04/16/22 09:30 36.5 109 18 109/69 (82) Room Air 04/16/22 09:00 94 18 119/78 (92) Room Air 04/16/22 08:30 99 18 124/73 (90) Room Air 04/16/22 08:00 90 18 119/67 (84) 97 Room Air 04/16/22 07:30 110 18 98 Room Air 04/16/22 07:02 36.6 133 18 97 Room Air Labs Laboratory Tests 04/16/22 07:00: White Blood Count 11.2H, Red Blood Count 3.75L, Hemoglobin 10.6L, Hematocrit 32L , Mean Corpuscular Volume 84, Mean Corpuscular Hemoglobin 28, Mean Corpuscular Hemoglobin Concent 34, Red Cell Distribution Width 12.6, Platelet Count 256, Mean Platelet Volume 11.1, Immature Granulocyte % (Auto) 1, Neutrophils (%) (Auto) 72, Lymphocytes (%) (Auto) 20, Monocytes (%) (Auto) 7, Eosinophils (%) (Auto) 0, Basophils (%) (Auto) 0, Neutrophils # (Auto) 8.0H, Lymphocytes # (Auto) 2.2, Monocytes # (Auto) 0.8, Eosinophils # (Auto) 0.1, Basophils # (Auto) 0.0, Immature Granulocyte # (Auto) 0.1, Sodium Level 135, Potassium Level 3.6, Chloride Level 105, Carbon Dioxide Level 16L, Anion Gap 14, Blood Urea Nitrogen 6L, Creatinine 0.64, Estimat Glomerular Filtration Rate 127, BUN/Creatinine Ratio 9, Glucose Level 146H, Calcium Level 9.5, Corrected Calcium 10.1, Total Bilirubin 0.6, Aspartate Amino Transf (AST/SGOT) 27, Alanine Aminotransferase (ALT/SGPT) 33, Alkaline Phosphatase 267H, Total Protein 7.0, Albumin 3.2 ELIAS MORAES MD Apr 16, 2022 12:21
[2022-04-16] MEDS ORDERED: CATHETER FLUSH 10 ML SYR IV SCH (14:00)
[2022-04-16] MEDS ORDERED: LIDOCAINE PF 2% 5 ML (XYLOCAINE) VIAL ONE ×2 (15:54→23:27)
--- NOTE | 2022-04-16 17:11 | OB Labor & Delivery Record ---
Vag Delivery Note Vag Delivery Note Date of Delivery: 04/16/22 Preoperative Diagnosis: Bryan Bustamante is a (22 /Para 4 / 3,Gestational Age (wks)37.3 Here for IOL for cholestasis with severe symptoms Postoperative Diagnosis: Same Surgeon: ELIAS MORAES MD Career Services Representative: Maddy Alfred MS4 Anesthesia: Epidural Delivery Type: @ 4136 Findings: Viable male infant, apgars 8/9, weight 7#10, 3455 grams Lacerations: None Intact placenta with 3 vessel cord. Nuchal cord x1, reduced at delivery of head, No body cord or shoulder dystocia Estimated Blood Loss: 100 ml Complications: None Condition: Stable Description of Procedure: The patient is a 22 year old female who presented for IOL. She was admitted and informed consent was obtained. Her labor course was augmentation of labor. She progressed to complete dilatation and began to push. She was then set up for delivery. The infant's head was delivered atraumatically in the PHYLLIS position, nuchal x 1 reduced at delivery of head. The shoulders and remainder of the 's body were then delivered without difficulty. Upon delivery, the infant was vigorous and placed on maternal chest and the mouth and nares were bulb suctioned. After a delay of 2 mins cord was doubly clamped and cut by FOB and the infant remained on maternal chest and attended to by nurse. An intact placenta with 3-vessel cord delivered via Helder and there was found to be minimal bleeding.~ Vigorous fundal massage was performed and the fundus was found to be firm. IV oxytocin was given. Examination of the vagina and perineum revealed no lacerations that required repair. Following the repair, sponge, instrument and needle counts were correct. Mom and baby were both in stable condition in the labor suite. Vitals - Labs Vital Signs - I&O Vital Signs Date Time Temp Pulse Resp B/P (MAP) Pulse Ox O2 Delivery O2 Flow Rate FiO2 04/16/22 14:45 95 18 111/63 (79) Room Air 04/16/22 14:30 36.7 83 18 110/62 (78) Room Air 04/16/22 14:15 84 18 108/57 (74) 98 Room Air 04/16/22 14:00 81 18 112/60 (77) 98 Room Air 04/16/22 13:45 86 18 104/61 (75) 98 Room Air 04/16/22 13:30 95 18 103/60 (74) 98 Room Air 04/16/22 13:15 97 18 107/67 (80) 99 Room Air 04/16/22 13:00 95 18 98/59 (72) 99 Room Air 04/16/22 12:45 37.0 99 18 107/63 (78) 99 Room Air 04/16/22 12:30 104 18 103/64 (77) 98 Room Air 04/16/22 12:15 108 18 121/53 (75) 100 Room Air 04/16/22 12:00 86 18 113/69 (84) 98 Room Air 04/16/22 11:53 90 18 104/63 (77) 97 Room Air 04/16/22 11:50 83 18 108/58 (75) 99 Room Air 04/16/22 11:48 83 18 108/62 (77) 97 Room Air 04/16/22 11:45 109 18 107/62 (77) 98 Room Air 04/16/22 11:39 87 18 106/65 (79) 97 Room Air 04/16/22 11:36 104 18 103/58 (73) 98 Room Air 04/16/22 11:33 111 18 104/63 (77) 98 Room Air 04/16/22 11:30 93 18 106/55 (72) 98 Room Air 04/16/22 11:28 113 18 100/61 (74) 98 Room Air 04/16/22 11:25 107 18 112/72 (85) 98 Room Air 04/16/22 11:15 102 18 126/68 (87) 97 Room Air 04/16/22 11:10 127 18 116/82 (93) 99 Room Air 04/16/22 11:05 114 18 105/61 (76) 100 Room Air 04/16/22 11:00 99 18 114/71 (85) Room Air 04/16/22 10:45 91 18 106/54 (71) Room Air 04/16/22 10:30 90 18 113/56 (75) Room Air 04/16/22 10:15 92 18 115/59 (77) Room Air 04/16/22 10:00 96 18 115/78 (90) Room Air 04/16/22 09:45 89 18 112/56 (74) Room Air 1/31/23 09:30 36.5 109 18 109/69 (82) Room Air 04/16/22 09:00 94 18 119/78 (92) Room Air 04/16/22 08:30 99 18 124/73 (90) Room Air 04/16/22 08:00 90 18 119/67 (84) 97 Room Air 04/16/22 07:30 110 18 98 Room Air 04/16/22 07:02 36.6 133 18 97 Room Air Labs Laboratory Tests 04/16/22 07:00: White Blood Count 11.2H, Red Blood Count 3.75L, Hemoglobin 10.6L, Hematocrit 32L , Mean Corpuscular Volume 84, Mean Corpuscular Hemoglobin 28, Mean Corpuscular Hemoglobin Concent 34, Red Cell Distribution Width 12.6, Platelet Count 256, Mean Platelet Volume 11.1, Immature Granulocyte % (Auto) 1, Neutrophils (%) (Auto) 72, Lymphocytes (%) (Auto) 20, Monocytes (%) (Auto) 7, Eosinophils (%) (Auto) 0, Basophils (%) (Auto) 0, Neutrophils # (Auto) 8.0H, Lymphocytes # (Auto) 2.2, Monocytes # (Auto) 0.8, Eosinophils # (Auto) 0.1, Basophils # (Auto) 0.0, Immature Granulocyte # (Auto) 0.1, Sodium Level 135, Potassium Level 3.6, Chloride Level 105, Carbon Dioxide Level 16L, Anion Gap 14, Blood Urea Nitrogen 6L, Creatinine 0.64, Estimat Glomerular Filtration Rate 127, BUN/Creatinine Ratio 9, Glucose Level 146H, Calcium Level 9.5, Corrected Calcium 10.1, Total Bilirubin 0.6, Aspartate Amino Transf (AST/SGOT) 27, Alanine Aminotransferase (ALT/SGPT) 33, Alkaline Phosphatase 267H, Total Protein 7.0, Albumin 3.2 ELIAS MORAES MD Apr 16, 2022 17:11
[2022-04-16] MEDS ORDERED: BENZOCAINE/MENTHOL (DERMOPLAST) 56 ML CAN TP PRN (17:15)
[2022-04-16] MEDS ORDERED: WITCH HAZEL(TUCKS) 40 EA JAR TOP PRN (17:15)
[2022-04-16] MEDS: IBUPROFEN 600 MG (MOTRIN) TAB PO SCH (17:39)
[2022-04-16] MEDS: ACETAMINOPHEN 500 MG TAB (TYLENOL) PO SCH (17:39)
[2022-04-16] MEDS: OXYTOCIN PRE-MIX DRIP 500 ML IV SCH ×2 (17:40→22:37)
[2022-04-16] MEDS ORDERED: IBUPROFEN TABLET 200 MG TAB PO ONE ×2 (20:00→20:09)
[2022-04-16] MEDS: DOCUSATE SODIUM 100 MG (COLACE) CAP PO SCH (20:11)
[2022-04-16] MEDS: CATHETER FLUSH 10 ML SYR IV SCH (20:12)
[2022-04-16] MEDS ORDERED: METHYLERGONOVINE 0.2 MG/ML (METHERGINE) AMP ONE ×2 (22:37→23:29)
[2022-04-16] MEDS ORDERED: NS IV 1000 ML 1,000 ML ONE ×2 (22:37→23:23)
[2022-04-16] MEDS ORDERED: OXYTOCIN PRE-MIX DRIP 500 ML IV ONE (22:37)
[2022-04-16] MEDS ORDERED: TRANEXAMIC ACID 100 MG/ML 10 ML INJECTION ONE (22:49)
[2022-04-16] MEDS ORDERED: TRANEXAMIC ACID 100 MG/ML 10 ML INJECTION IV ONE (23:00)
[2022-04-16] MEDS ORDERED: NS IV 500 ML 500 ML IV SCH (23:15)
[2022-04-16 23:22] LABS: HEMOGLOBIN 7.9 g/dL (11.5-16.0)
[2022-04-16] MEDS ORDERED: CARBOPROST (HEMABATE) 250 MCG/ML AMP IM ONE (23:22)
[2022-04-16] MEDS ORDERED: ONDANSETRON 4 MG/2 ML (SDV) Z0FRAN ONE (23:27)
[2022-04-16] MEDS ORDERED: MIDAZOLAM 2 MG/2 ML (VERSED) VIAL ONE (23:27)
[2022-04-16] MEDS ORDERED: SEVOFLURANE (ULTANE) 15 ML INHAL SOLN ONE (23:27)
[2022-04-16] MEDS ORDERED: SUCCINYLCHOLINE INJ 20 MG/1 ML 10 ML VIAL ONE (23:29)
--- NOTE | 2022-04-16 23:41 | Consultation ---
History of Present Illness History of Present Illness Patient Consulted On(enrrique/time) 04/16/22 23:35 Date Seen by Provider: Apr 16, 2022 Time Seen by Provider: 11:30 Reason for Visit: S/P Vaginal delivery History of Present Illness I was contacted by Dr. Evans at approx 2310 for hemorrage on a patient that Dr. Meza had delivered earlier this evening having a hemorrhage. She requested my assistance for blood loss after measures had been taking of IM Methergine, IV Pitocin, Rectal cytotec, and manual evacuation of uterus had been performed in room. Upon arrival patient awake and aware, but visable uncomfortable with uterine massage being done by Dr Evans, and mass transfusion protocol being activated after EBL of nearly 2-2.5 L had occurred. Allergies and Home Medications Allergies Coded Allergies: No Known Allergies (Verified Allergy, Unknown, 05/29/18) Patient Home Medication List Home Medication List Reviewed: Yes Amoxicillin (Amoxicillin) 500 Mg Tablet, 500 MG PO BID, (Reported) Entered as Reported by: BETH CAROLINA on 04/16/22 0946 Last Action: New Order Famotidine (Pepcid) 20 Mg Tablet, 20 MG PO BID Prescribed by: ASHIA KIRKLAND on 02/17/20 1857 Metoclopramide HCl (Metoclopramide HCl) 10 Mg Tablet, 10 MG PO DAILY, (Reported) Entered as Reported by: BETH CAROLINA on 04/03/22 0908 Ondansetron (Ondansetron Odt) 4 Mg Tab.rapdis, 4 MG PO Q4H PRN for NAUSEA/VOMITING, (Reported) Entered as Reported by: BETH CAROLINA on 04/03/22 0910 Vit/Iron Fumarate/FA ( Vitamin Tablet) 1 Each Tablet, 1 EACH PO DAILY, (Reported) Entered as Reported by: RAZ WALTERS on 06/02/16 0135 Discontinued Medications Ursodiol (Ursodiol) 300 Mg Capsule, 300 MG PO BID, (Reported) Discontinued Reason: No Longer Taking Entered as Reported by: BETH CAROLINA on 04/03/22 0911 Last Action: Discontinued Past Kruujhp-Xzvczn-Duwqqy Hx Patient Social History Tobacco Use?: No Smokeless Tobacco Frequency: Never a User Use of E-Cig and/or Vaping dev: Yes E-Cig or Vaping type used: Nicotine Use of E-Cig and/or Vaping Luis: Current Everyday User Substance use?: No Alcohol Use?: No Pt feels they are or have been: No Immunizations Up To Date Tetanus Booster (TDap): Less than 5yrs PED Vaccines UTD: Yes Influenza Vaccine Up-to-Date: No; Not Current First/Initial COVID19 Vaccinat: na Second COVID19 Vaccination Enrrique: na Third COVID19 Vaccination Date: na Seasonal Allergies Seasonal Allergies: No Past Medical History Surgery/Hospitalization HX: A0 Surgeries: Yes Gallbladder, Tonsillectomy Respiratory: No Cardiac: No Neurological: No Expected Date of Delivery: May 04, 2022 Hx : 4 Hx Para: 3 Female Reproductive Disorders: Denies Sexually Transmitted Disease: No HIV/AIDS: No Genitourinary: No Gastrointestinal: No Gall Bladder Disease Musculoskeletal: No Fractures Endocrine: No HEENT: No Loss of Vision: Denies Hearing Impairment: Denies Cancer: No Psychosocial: No Anxiety, Depression Integumentary: No Blood Disorders: No Adverse Reaction/Blood Tranf: No Family Medical History Cardiovascular disease 19 FATHER Completed stroke 19 FATHER Diabetes mellitus PATERNAL GRANDFATHER Hypertension 19 FATHER Kidney disease Myocardial infarction 19 FATHER Review of Systems-General Constitutional: see HPI EENTM: see HPI Respiratory: see HPI Cardiovascular: see HPI : No Musculoskeletal: see HPI Skin: see HPI Psychiatric/Neurological: See HPI All Other Systems Reviewed Negative Unless Noted: Yes (Negative excepted noted.) Physical Exam-General Problems Physical Exam Vital Signs Vital Signs - First Documented 04/16/22 04/16/22 07:02 08:00 Temp 36.6 Pulse 133 Resp 18 B/P (MAP) 119/67 (84) Pulse Ox 97 O2 Delivery Room Air Capillary Refill : Less Than 3 Seconds General Appearance: moderate distress HEENT: PERRL/EOMI Comments visibly uncomfortable, patient and SO awake and aware of situation Assessment/Plan Assessment/Plan Admission Diagnosis/Plan Diagnosis: 22 yo w/ pp hemorrhage- estimate 2-2.5L P: Hypotensive IVF bolus ordered w/ mass transfusion protocol Second dose of methergine ordered Discussed with patient and SO going to OR for (Addressing hemorrhage, EUA, D and C, and any other indicated procedures). We discussed up to and including hysterectomy patient and SO aware and agreeable to proceed. Admission Status: Inpatient Order (span 2 midnights) SAMINA RAMIREZ DO Apr 16, 2022 23:41
[2022-04-16 23:47] LABS: ALBUMIN 2.4 GM/DL (3.2-4.5); POTASSIUM 3.4 MMOL/L (3.6-5.0)
[2022-04-16 23:48] LABS: CALCIUM 7.8 MG/DL (8.5-10.1)
[2022-04-16 23:51] LABS: BILIRUBIN,TOTAL 0.5 MG/DL (0.1-1.0)
[2022-04-16 23:53] LABS: CREATININE SERUM 0.64 MG/DL (0.60-1.30)
[2022-04-17] VITALS (11 sets, daily range): BP systolic 107–125; BP diastolic 55–97
[2022-04-17] MEDS: ceFAZolin INJECTION 2,000 MG in NS (IVPB) 50 ML IV SCH ×2 (00:05→08:17)
[2022-04-17 00:12] LABS: PROTHROMBIN TIME PATIENT 13.7 SEC (12.2-14.7)
[2022-04-17] MEDS ORDERED: OXYTOCIN (PITOCIN) 10 UNIT/ML VIAL ONE (00:12)
[2022-04-17 00:13] LABS: FIBRINOGEN 309 MG/DL (221-496); PARTIAL THROMBOPLASTIN TIME 31 SEC (24-35)
[2022-04-17 00:14] LABS: FIBRIN DEGRADATION PRODUCTS > 20.00 UG/ML (0.00-0.49)
[2022-04-17] MEDS ORDERED: ceFAZolin INJECTION 2,000 MG ONE (00:14)
[2022-04-17] MEDS ORDERED: METOCLOPRAMIDE INJ 10 MG/2 ML (REGLAN) ONE (00:18)
[2022-04-17] MEDS ORDERED: OXYTOCIN PRE-MIX DRIP 1,000 ML IV ONE (00:19)
--- NOTE | 2022-04-17 00:19 | Progress Note ---
Subjective Subjective/Events-last exam Received call at 1043 from bedside nurse that patient was having hemorrhage, she stated she had given 800 mcg cytotec rectally, 0.2 mg methergine IM and a bag of pitocin had been started, and she had passed a large amount of clot and possibly membranes/placental pieces. Reportedly uterine tone good, and bleeding had slowed but not stopped. I asked for tranexamic acid to be given as well. I called Nub Card Tender controls design engineer at 1052 to notify of concern and I arrived at bedside at approximately 1055. At that time patient was reporting uterine pain, and had slow but persistent bright red bleeding. Blood pressure was 100s/70s and heart rate in the upper 80s and she appeared quite pale. Nursing reported that weighed chucks now equated to a total of around 900 cc, so I did order blood transfusion x 2 and coags and H&H as well. Objective Exam Last Set of Vital Signs Heart rate increased during time I was at bedside from 80s to one-teens, but BP remained normal. I&O Intake and Output 04/16/22 23:59 Intake Total 3500 ml Balance 3500 ml Intake IV Total 3500 ml Blood Loss Quantification Method 100 ml 315 ml Daily Weight Change No General: Alert, Mild Distress Psych/Mental Status: Mental Status NL Other physical findings vaginal exam revealed no vaginal sulcus, perineal or cervical lacerations. Bimanual exam revealed firm uterus, large clot as well as a large piece of membranous tissue after which bleeding stopped. Results/Procedures Lab Laboratory Tests 04/16/22 07:00: White Blood Count 11.2H, Red Blood Count 3.75L, Hemoglobin 10.6L, Hematocrit 32L , Mean Corpuscular Volume 84, Mean Corpuscular Hemoglobin 28, Mean Corpuscular Hemoglobin Concent 34, Red Cell Distribution Width 12.6, Platelet Count 256, Mean Platelet Volume 11.1, Immature Granulocyte % (Auto) 1, Neutrophils (%) (Auto) 72, Lymphocytes (%) (Auto) 20, Monocytes (%) (Auto) 7, Eosinophils (%) (Auto) 0, Basophils (%) (Auto) 0, Neutrophils # (Auto) 8.0H, Lymphocytes # (Auto) 2.2, Monocytes # (Auto) 0.8, Eosinophils # (Auto) 0.1, Basophils # (Auto) 0.0, Immature Granulocyte # (Auto) 0.1, Sodium Level 135, Potassium Level 3.6, Chloride Level 105, Carbon Dioxide Level 16L, Anion Gap 14, Blood Urea Nitrogen 6L, Creatinine 0.64, Estimat Glomerular Filtration Rate 127, BUN/Creatinine Ratio 9, Glucose Level 146H, Calcium Level 9.5, Corrected Calcium 10.1, Total Bilirubin 0.6, Aspartate Amino Transf (AST/SGOT) 27, Alanine Aminotransferase (ALT/SGPT) 33, Alkaline Phosphatase 267H, Total Protein 7.0, Albumin 3.2, Syphilis Serology Non-Reactive Assessment/Plan Assessment/Plan (1) hemorrhage Status: Acute Assessment & Plan: s/p normal spontaneous vaginal delivery with report of 100 cc blood loss at delivery and no suspicion of retained placenta at that time. -Given methergine, cytotec, pitocin and hemabate, 3 units of blood -H&H and coags drawn and pending prior to transfusion -vaginal exam with no external source of bleeding, bimanual exam completed with return of membranous tissue and subsequent significant decline in bleeding. -At the time of second heavy episode of bleeding with tissue, called Dr. Leiva due to suspected need for D and C. Massive transfusion protocol initiated. Bleeding did stop after manual evacuation of the uterus, and I remained at bedside ready to perform bimanual massage or place Bakri balloon should bleeding resume, until patient was transported to OR Qualifiers: Qualified Codes: O72.2 - Delayed and secondary hemorrhage YOVANY CHAUDHARY MD Apr 17, 2022 00:18
[2022-04-17] MEDS ORDERED: ONDANSETRON 4 MG/2 ML (SDV) Z0FRAN ONE (00:24)
[2022-04-17] MEDS ORDERED: MEPERIDINE (DEMEROL) INJ 50 MG/ML ONE (00:24)
[2022-04-17] MEDS ORDERED: CARBOPROST (HEMABATE) 250 MCG/ML AMP IM ONE ×2 (00:24→02:45)
[2022-04-17] MEDS ORDERED: HYDROmorphone 2 MG/ML VIAL (DILAUDID) ONE (00:24)
[2022-04-17] MEDS ORDERED: SUGAMMADEX 500 MG/5 ML VIAL (BRIDION) IV ONE (00:34)
[2022-04-17] MEDS ORDERED: ROCURONIUM 50 MG/5 ML (ZEMURON) VIAL IV ONE (00:35)
[2022-04-17] MEDS ORDERED: HYDROmorphone 2 MG/ML VIAL (DILAUDID) IV ONE (01:00)
[2022-04-17] MEDS ORDERED: ONDANSETRON 4 MG/2 ML (SDV) Z0FRAN IVP PRN (01:00)
[2022-04-17] MEDS ORDERED: SEVOFLURANE (ULTANE) 15 ML INHAL SOLN ONE (01:04)
[2022-04-17] MEDS: OXYTOCIN PRE-MIX DRIP 500 ML IV SCH ×2 (01:40→05:29)
[2022-04-17] MEDS: ACETAMINOPHEN 500 MG TAB (TYLENOL) PO SCH ×4 (02:04→19:20)
[2022-04-17] MEDS: IBUPROFEN 600 MG (MOTRIN) TAB PO SCH ×4 (02:04→19:20)
[2022-04-17] MEDS ORDERED: LACTATED RINGERS 1,000 ML IV SCH (02:45)
[2022-04-17] MEDS ORDERED: METHYLERGONOVINE 0.2 MG/ML (METHERGINE) AMP IM ONE ×2 (02:45)
[2022-04-17] MEDS ORDERED: NS IV 1000 ML 1,000 ML IV SCH (02:45)
[2022-04-17] MEDS ORDERED: TRANEXAMIC ACID 100 MG/ML 10 ML INJECTION ONE (02:45)
[2022-04-17 03:59] LABS: BASOPHILS % (AUTO) 0 % (0-10); EOSINOPHILS % (AUTO) 0 % (0-10); HEMATOCRIT 28 % (35-52); HEMOGLOBIN 9.2 g/dL (11.5-16.0); LYMPHOCYTES % (AUTO) 5 % (12-44); MEAN CORPUSCULAR HEMOGLOBIN 28 pg (25-34); MEAN CORPUSCULAR HGB CONC 33 g/dL (32-36); MEAN CORPUSCULAR VOLUME 84 fL (80-99); MONOCYTES # (AUTO) 0.6 10^3/uL (0.0-1.0); MONOCYTES % (AUTO) 3 % (0-12); NEUTROPHILS # (AUTO) 16.4 10^3/uL (1.8-7.8); NEUTROPHILS % (AUTO) 90 % (42-75); PLATELET COUNT 198 10^3/uL (130-400); WHITE BLOOD COUNT 18.1 10^3/uL (4.3-11.0)
[2022-04-17] MEDS: CATHETER FLUSH 10 ML SYR IV SCH ×2 (05:29→20:52)
[2022-04-17] MEDS: DOCUSATE SODIUM 100 MG (COLACE) CAP PO SCH ×2 (07:58→21:23)
--- NOTE | 2022-04-17 08:58 | Anesthesia-Regional Post-Op ---
Regional Patient Condition Mental Status: Alert, Oriented x3 Circulation: Same as Pre-Op Headache: Absent Sensation: Full Recovery Motor Block: Absent Post Op Complications Complications None Follow Up Care/Instructions Patient Instructions None needed. Anesthesia/Patient Condition Patient is doing well, no complaints, stable vital signs, no apparent adverse anesthesia problems. No complications reported per nursing. NATASHA REYNOLDS CRNA Apr 17, 2022 08:58
--- NOTE | 2022-04-17 10:11 | Postpartum Progress Note ---
Note Note Day # 1 Subjective: Patient is without complaints. Yet to get up and ambulate, nor void with catheter still in place this AM. Tolerating a regular diet without nausea or vomiting. Lochia is now normal Objective: Physical Exam: General - Alert and oriented, no apparent distress Abdomen - Soft, appropriately tender to palpation, non-distended, fundus firm at umbilicus Extremities - no edema, negative Nils's bilaterally Assessment: PPD1 NVD w/ subsequent PPH s/p D and C Acute blood loss anemia - s/p 3 uPRBC Plan: Routine care. Encourage breast feeding. Encourage ambulation w assist today Calderon catheter out PO methergine today TID Ferrous sulfate supplementation. Plan for discharge tomorrow Vitals - Labs Vital Signs - I&O Vital Signs Date Time Temp Pulse Resp B/P (MAP) Pulse Ox O2 Delivery O2 Flow Rate FiO2 04/17/22 08:01 36.8 83 18 112/64 (80) 96 Room Air 04/17/22 03:30 36.5 89 18 111/79 (90) 97 Room Air 04/17/22 02:06 36.8 94 18 107/75 (86) 99 Room Air 04/17/22 01:35 Room Air 04/17/22 01:35 36.7 20 125/77 (93) 97 Room Air 04/17/22 01:30 20 121/71 (88) 97 Room Air 04/17/22 01:30 Room Air 04/17/22 01:20 20 120/70 (87) 97 Room Air 04/17/22 01:15 Room Air 04/17/22 01:10 20 121/71 (88) 100 Room Air 04/17/22 01:00 20 110/55 (73) 100 Room Air 04/17/22 01:00 Room Air 04/17/22 00:49 36.7 20 110/55 (73) 100 OxyMask 4.00 04/17/22 00:49 OxyMask 4.00 04/16/22 20:46 Room Air 04/16/22 19:02 86 18 121/77 (92) 96 Room Air 04/16/22 18:17 36.9 86 18 125/67 (86) Room Air 04/16/22 17:59 87 18 114/68 (83) Room Air 04/16/22 17:44 90 18 115/62 (79) Room Air 04/16/22 17:29 36.8 92 18 106/55 (72) Room Air 04/16/22 17:14 97 18 117/58 (77) Room Air 04/16/22 16:59 36.9 96 18 111/56 (74) Room Air 04/16/22 16:45 122 18 126/87 (100) Room Air 04/16/22 16:30 90 18 127/60 (82) 100 Room Air 04/16/22 16:15 102 18 111/71 (84) 98 Room Air 04/16/22 16:10 98 18 118/68 (85) 99 Room Air 04/16/22 16:00 108 18 118/54 (75) 97 Room Air 04/16/22 15:45 87 18 119/74 (89) 98 Room Air 04/16/22 15:30 86 18 119/67 (84) 98 Room Air 04/16/22 15:15 84 18 107/60 (76) 98 Room Air 04/16/22 15:00 85 18 100/55 (70) Room Air 04/16/22 14:45 95 18 111/63 (79) Room Air 04/16/22 14:30 36.7 83 18 110/62 (78) Room Air 04/16/22 14:15 84 18 108/57 (74) 98 Room Air 04/16/22 14:00 81 18 112/60 (77) 98 Room Air 04/16/22 13:45 86 18 104/61 (75) 98 Room Air 04/16/22 13:30 95 18 103/60 (74) 98 Room Air 04/16/22 13:15 97 18 107/67 (80) 99 Room Air 04/16/22 13:00 95 18 98/59 (72) 99 Room Air 04/16/22 12:45 37.0 99 18 107/63 (78) 99 Room Air 04/16/22 12:30 104 18 103/64 (77) 98 Room Air 04/16/22 12:15 108 18 121/53 (75) 100 Room Air 04/16/22 12:00 86 18 113/69 (84) 98 Room Air 04/16/22 11:53 90 18 104/63 (77) 97 Room Air 04/16/22 11:50 83 18 108/58 (75) 99 Room Air 04/16/22 11:48 83 18 108/62 (77) 97 Room Air 04/16/22 11:45 109 18 107/62 (77) 98 Room Air 04/16/22 11:39 87 18 106/65 (79) 97 Room Air 04/16/22 11:36 104 18 103/58 (73) 98 Room Air 04/16/22 11:33 111 18 104/63 (77) 98 Room Air 04/16/22 11:30 93 18 106/55 (72) 98 Room Air 04/16/22 11:28 113 18 100/61 (74) 98 Room Air 04/16/22 11:25 107 18 112/72 (85) 98 Room Air 04/16/22 11:15 102 18 126/68 (87) 97 Room Air 04/16/22 11:10 127 18 116/82 (93) 99 Room Air 04/16/22 11:05 114 18 105/61 (76) 100 Room Air 04/16/22 11:00 99 18 114/71 (85) Room Air 04/16/22 10:45 91 18 106/54 (71) Room Air 04/16/22 10:30 90 18 113/56 (75) Room Air 04/16/22 10:15 92 18 115/59 (77) Room Air I & O 04/17/22 07:00 Intake Total 3500 ml Output Total 120 ml Balance 3380 ml Labs Laboratory Tests 04/16/22 23:13: Hemoglobin 7.9#L, Hematocrit 24L, Prothrombin Time 13.7, INR Comment 1.0, Activated Partial Thromboplast Time 31, Fibrinogen 309, D-Dimer > 20.00H, Sodium Level 138, Potassium Level 3.4L, Chloride Level 110H, Carbon Dioxide Level 17L, Anion Gap 11, Blood Urea Nitrogen 6L, Creatinine 0.64, Estimat Glomerular Filtration Rate 127, BUN/Creatinine Ratio 9, Glucose Level 107H, Calcium Level 7.8L, Corrected Calcium 9.1, Total Bilirubin 0.5, Aspartate Amino Transf (AST/SGOT) 22, Alanine Aminotransferase (ALT/SGPT) 27, Alkaline Phosphatase 199H , Total Protein 5.0L, Albumin 2.4L 04/17/22 03:50: Hemoglobin 9.2L, Hematocrit 28L, White Blood Count 18.1H, Red Blood Count 3.32L, Mean Corpuscular Volume 84, Mean Corpuscular Hemoglobin 28, Mean Corpuscular Hemoglobin Concent 33, Red Cell Distribution Width 14.0, Platelet Count 198, Mean Platelet Volume 11.0, Immature Granulocyte % (Auto) 1, Neutrophils (%) (Auto) 90H, Lymphocytes (%) (Auto) 5L, Monocytes (%) (Auto) 3, Eosinophils (%) (Auto) 0, Basophils (%) (Auto) 0, Neutrophils # (Auto) 16.4H, Lymphocytes # (Auto) 1.0, Monocytes # (Auto) 0.6, Eosinophils # (Auto) 0.0, Basophils # (Auto) 0.0, Immature Granulocyte # (Auto) 0.1 SAMINA RAMIREZ DO Apr 17, 2022 10:11
[2022-04-17] MEDS: METHYLERGONOVINE 0.2 MG (MEHTERGINE) TAB PO SCH ×3 (10:19→21:23)
--- NOTE | 2022-04-17 12:28 | OPERATIVE REPORT ---
PREOPERATIVE DIAGNOSIS: A 22-year-old female with hemorrhage greater than 2 liters. POSTOPERATIVE DIAGNOSIS: A 22-year-old female with hemorrhage greater than 2 liters. PROCEDURE: EUA and D and C. SURGEON: Sree Leiva DO ANESTHESIA: General endotracheal. ESTIMATED BLOOD LOSS: 300 mL lost intraoperatively. FLUIDS: 1200 mL lactated Ringer's solution with Pitocin 20 milliunits administered, 3 units of packed red blood cells completed during the procedure as well. URINE OUTPUT: 100 mL clear at the end of procedure. INDICATIONS FOR PROCEDURE: This is a 22-year-old female patient who had sought care and delivery with Dr. Meza. , she was complicated by a 2 liter blood loss noted at bedside. She had been given Methergine, Hemabate, rectal Cytotec and IV Pitocin without any improvement in her bleeding as well as a big and enlarged boggy atonic uterus. I was consulted to evaluate this further. I discussed with the patient at bedside with Dr. Evans present proceeding with massive transfusion protocol due to the amount of blood loss; however, proceeding with evaluation under anesthesia and possible D and C and other indicated procedures. The patient was agreeable. After all of her questions were answered, consent was obtained. The patient was taken to the operating room. DESCRIPTION IN DETAIL: Once in the operating room, general anesthesia was administered and found to be adequate, was placed in dorsal lithotomy position, prepped and draped in sterile fashion. A timeout was performed. Calderon catheter was placed using sterile technique. A weighted speculum was inserted in the patient's vagina. Right angle retractor was used to visualize the cervix and it was grasped at 12 o'clock position using a long ring forceps. I then clear the vaginal vault of approximately 150 mL of clotted blood. I then performed a gentle curettage of the endometrium using a Banjo size curette. There is still some uterine atony appreciated on bimanual examination. IV Pitocin was administered and this improves the uterine tone. I make several passes with a Banjo sharp curette, after which I am make a pass with a 16 mm Kaden suction curette on several passes little to no tissue is removed at this point, however, the tissue was removed with a Banjo curette was sent as a retained products of conception. After which bleeding has slowed down significantly. I placed two lateral sutures, used both with 0 Vicryl suture, was placed at 3 and 9 o'clock positions of the cervix to help control blood flow to the uterus from the lateral vessels. Once both of these were placed, blood flow from the external cervical os slowed even more to a very slow trickle. Due to the stability decision was made to complete the procedure at that point, remove all other instruments from the patient's vagina. The patient tolerated the procedure well and was sent to recovery in stable condition. Lap and sponge counts were correct at the end of the procedure. Instrument counts were correct as well. Due to blood loss, 2 grams of Ancef were given intraoperatively for infection prophylaxis. Job ID: [id number] DocumentID: [id number] Dictated Date: 04/17/2022 01:55:43 Belt Knife Feeder Date: 04/17/2022 08:31:00 Dictated By: DO AMELIA RODGERS
--- NOTE | 2022-04-17 19:28 | OB Triage Report ---
SEN CONCEPCION 04/17/221927: Standard Progress Note Progress Notes/Assess & Plan Date Seen by a Provider: Apr 17, 2022 Time Seen by a Provider: 10:30 Expected Date of Delivery: May 04, 2022 Gestational Age in Weeks: 37 Gestational Age in Days: 3 LMP/PRICILA Comment: LMP:07/15/2021 PRICILA: 05/04/2022 Progress/Assessment & Plan Ms. Bustamante is a 22 y/o G4 now P4 s/p induction of labor with due to intrahepatic cholestasis of . period complicated by hemorrhage requiring massive transfusion protocol and surgical management with D&C. The patient is stable at time of encounter. The patient has successfully breast-fed multiple times with no vaginal bleeding. The patient is tolerating PO food and drink. Pain is well-controlled with PO pain medication. Patient denies vaginal bleeding and reports expected lochia. Diagnosis/Problems Diagnosis/Problems (1) hemorrhage Status: Acute Assessment & Plan: hemorrhage s/p transfusion of 3units with massive transfusion protocol and operative management with D&C. -04/17: patient is stable at this time. Hgb 9.2 at 0350. Repeat CBC in AM and co ntinue to closely monitor -Pitocin drip discontinued -Normal lochia -Methergine 0.2mg PO TID Qualifiers: Qualified Codes: O72.2 - Delayed and secondary hemorrhage (2) Status post vaginal delivery Status: Acute Assessment & Plan: , induction of labor at 37.7 wga for intrahepatic cholestasis in . - period complicated by hemorrhage requiring massive transfusion protocol and operative management with D&C. -04/17: patient is stable at this time. Hgb 9.2 at 0350. Repeat CBC in AM and continue to closely monitor - is going well, continue to encourage and support with consult if requested -Pain is well controlled with PO pain medication -Methergine 0.2mg PO TID -Tolerating PO food and drink, regular diet as tolerated -Normal lochia, continue to monitor for vaginal bleeding YOVANY CHAUDHARY MD 04/17/221945: Supervisory-Addendum Brief Supervisory Addendum I personally saw and examined patient and did my own history and exam. Lungs CTAB, heart RRR, Fundus firm below umbilicus, appropriately ttp. I directed the plan of care as documented by the med student. SEN [facility]CEPCION Apr 17, 2022 19:28 YOVANY CHAUDHARY MD Apr 17, 2022 19:46
[2022-04-18 01:05] VITALS: BP 107/55
[2022-04-18] MEDS: IBUPROFEN 600 MG (MOTRIN) TAB PO SCH ×4 (01:42→20:55)
[2022-04-18] MEDS: ACETAMINOPHEN 500 MG TAB (TYLENOL) PO SCH ×5 (01:43→23:59)
[2022-04-18] MEDS ORDERED: IBUP-844 PO (04:09)
[2022-04-18] MEDS ORDERED: FERR325T18 PO (04:13)
[2022-04-18 06:57] LABS: HEMATOCRIT 23 % (35-52); HEMOGLOBIN 7.5 g/dL (11.5-16.0); MEAN CORPUSCULAR HEMOGLOBIN 28 pg (25-34); MEAN CORPUSCULAR HGB CONC 33 g/dL (32-36); MEAN CORPUSCULAR VOLUME 85 fL (80-99); MEAN PLATELET VOLUME 10.9 fL (9.0-12.2); PLATELET COUNT 197 10^3/uL (130-400); WHITE BLOOD COUNT 9.9 10^3/uL (4.3-11.0)
[2022-04-18] MEDS: FERROUS SULF 325 MG (IRON) TAB PO SCH (07:56)
[2022-04-18] MEDS: METHYLERGONOVINE 0.2 MG (MEHTERGINE) TAB PO SCH ×2 (07:56→13:16)
[2022-04-18] MEDS: DOCUSATE SODIUM 100 MG (COLACE) CAP PO SCH ×2 (07:56→20:55)
[2022-04-18 08:01] VITALS: BP 104/65
--- NOTE | 2022-04-18 09:33 | Anesthesia-General Post-Op ---
General Patient Condition Mental Status/LOC: Same as Preop Cardiovascular: Satisfactory Nausea/Vomiting: Absent Respiratory: Satisfactory Pain: Controlled Complications: Absent Post Op Complications Complications None Follow Up Care/Instructions Patient Instructions None needed. Anesthesia/Patient Condition Patient Condition Patient is doing well, no complaints, stable vital signs, no apparent adverse anesthesia problems. No complications reported per nursing. D/C home per [facility] [place] Criteria: Yes KERRIE ZIMMER CRNA Apr 18, 2022 09:33
[2022-04-18] MEDS ORDERED: IRON SUCROSE 200 MG/10 ML (VENOFER) VIAL IV NR (12:30)
[2022-04-18 13:26] VITALS: BP 113/55
--- NOTE | 2022-04-18 14:37 | Discharge Summary ---
SEN CONCEPCION 04/18/22 1433: Discharge Summary Hospital Course Problems Reviewed?: Yes Problems/Diagnosis: (1) hemorrhage Status: Acute Assessment & Plan: hemorrhage s/p transfusion of 3units with massive transfusion protocol and operative management with D&C. -Continue PO Fe supplement -Iron infusion prior to discharge, Hgb of 7.5 on 04/18 -D/C Methergine Qualifiers: Qualified Codes: O72.2 - Delayed and secondary hemorrhage (2) Status post vaginal delivery Status: Acute Assessment & Plan: , induction of labor at 37.7 wga for intrahepatic cholestasis in . - period complicated by hemorrhage requiring massive transfusion protocol and operative management with D&C. -Fe PO supplement, Fe infusion prior to D/C - is going well, continue to encourage and support with consult if requested -Pain is well controlled with PO pain medication -Tolerating PO food and drink, regular diet as tolerated -Normal lochia, continue to monitor for vaginal bleeding Hospital Course Date of Admission: Apr 16, 2022 at 06:44 Admission Diagnosis : Family Physician/Provider: Kristin Meza MD Date of Discharge: 04/18/22 Discharge Diagnosis: [, s/p IOL at 37.7 wga for intrahepatic cholestasis in complicated by hemorrhage.] Hospital Course: Diego Bustamante is a 22 year old G4 now P4 who presented for IOL on 04/16 due to intrahepatic cholestasis in . Patient delivered via at 1647 on 04/16. Estimated blood loss after deliver was 100ml. There was no evidence of retained placenta. Later that evening Dr. Chaudhary was notified at 1043 from bedside nurse that the patient was having a hemorrhage. Through the course of treatment, the patient received cytotec, methergine, hemabate, pitocin, fundal massage, and ultimately surgical management with D&C. The patient had an estimated total blood loss of approximately 1800ml. A massive transfusion protocol was in place and the patient received 3units total. Coagulation studies were WNL. The patient remained stable post-operatively. The patient was able to recover with baby for the remainder of her hospital course. Prior to discharge the patient's Hgb was 7.5. The patient received an iron infusion in addition to PO iron supplementation. At the time of discharge, the patient is hemodynamically stable. This is a brief summary of the patient's hospital course, futher detail is documented in the patient's chart.] Labs and Pending Lab Test: Laboratory Tests 04/18/22 06:30: White Blood Count 9.9, Red Blood Count 2.65L, Hemoglobin 7.5L, Hematocrit 23L, Mean Corpuscular Volume 85, Mean Corpuscular Hemoglobin 28, Mean Corpuscular Hemoglobin Concent 33, Red Cell Distribution Width 14.6H, Platelet Count 197, Mean Platelet Volume 10.9 Home Meds Active Ferrous Sulfate 325 Mg (65 Mg Iron) Tablet 325 Mg PO DAILY Ibu (Ibuprofen) 600 Mg Tablet 600 Mg PO Q6H PRN Reported Vitamin Tablet ( Vit/Iron Fumarate/FA) 1 Each Tablet 1 Each PO DAILY Activity: Activity as Tolerated Driving Instructions: No Driving/Refer to NO SMOKING: NO SMOKING Nothing Inside Vagina: No Douching, No [place], No Tampons Discharge Diet: No Restrictions Return to The Hospital For: Vaginal bleeding, fever of >38.0, acute abdominal pain, nausea, vomiting, diarrhea, dizziness that does not improve, or syncope (passing out) Symptoms to Report to : Appetite Changes, Extremity Discoloration, Numbness/Tingling, Swelling Increased, Bleeding Excessive, Pain Increased, Urine Color Change, Constipation(Persistant), Fever Over 101 Degrees F, Pain/Pressure in Chest, Urination Difficulty, Cough Up/Vomit Blood, Heart Beat Irreg/Pounding, Pain/Pressure in Jaw, Vaginal Bleeding Increase, Cramps in Feet or Legs, Lightheadedness, Pain/Pressure in Shoulder, Vaginal Discharge Foul, Diarrhea(Persistant), Memory Changes Suddenly, Questions/Concerns, Dizziness/Fainting, Nausea/Vomiting, Shortness of Breath For Any Problems or Questions: Contact Your Physician, Go to Emergency Room Infection Signs and Symptoms: Increased Redness, Foul Odor of Wound, Skin Itchy or Has a Rash, Increased Swelling, Temperature Above 101 F Discharge Physical Examination Allergies: Coded Allergies: No Known Allergies (Verified Allergy, Unknown, 05/29/18) Vitals & I&Os Vital Signs Date Time Temp Pulse Resp B/P (MAP) Pulse Ox O2 Delivery O2 Flow Rate FiO2 04/18/22 13:26 36.5 84 14 113/55 (74) 96 Room Air 04/17/22 00:49 4.00 General Appearance: No Apparent Distress, WD/WN HEENT: PERRL/EOMI Respiratory: Lungs Clear, Normal Breath Sounds, No Accessory Muscle Use, No Respiratory Distress Cardiovascular: Regular Rate, Rhythm; No No Edema (trace edema of bilateral LE) Gastrointestinal: Normal Bowel Sounds, Other (fundus firm at level of umbilicus) Extremity: Pedal Edema (trace, bilateral) Skin: Normal Color, Warm/Dry Neurologic/Psychiatric: Alert, Oriented x3, No Motor/Sensory Deficits, Normal Mood/Affect Discharge Summary Date of Admission Apr 16, 2022 at 06:44 Date of Discharge 04/18/22 Discharge Date: Apr 18, 2022 Discharge Time: 17:00 Admission Diagnosis Induction of labor at 37.7 wga for intrahepatic cholestasis of Discharge Diagnosis (1) hemorrhage Status: Acute Assessment & Plan: hemorrhage s/p transfusion of 3units with massive transfusion protocol and operative management with D&C. -04/17: patient is stable at this time. Hgb 9.2 at 0350. Repeat CBC in AM and continue to closely monitor -Pitocin drip discontinued -Normal lochia -Methergine 0.2mg PO TID Qualifiers: Qualified Codes: O72.2 - Delayed and secondary hemorrhage (2) Status post vaginal delivery Status: Acute Assessment & Plan: , induction of labor at 37.7 wga for intrahepatic cholestasis in . - period complicated by hemorrhage requiring massive transfusion protocol and operative management with D&C. -04/17: patient is stable at this time. Hgb 9.2 at 0350. Repeat CBC in AM and continue to closely monitor - is going well, continue to encourage and support with consult if requested -Pain is well controlled with PO pain medication -Methergine 0.2mg PO TID -Tolerating PO food and drink, regular diet as tolerated -Normal lochia, continue to monitor for vaginal bleeding BREANNE CHAUDHARY MD 04/18/221935: Discharge Summary Discharge Physical Examination Allergies: Coded Allergies: No Known Allergies (Verified Allergy, Unknown, 05/29/18) Supervisory-Addendum Brief Verification & Attestation Participated in pt care: history, MDM, physical Personally performed: exam, history, MDM, supervision of care Care discussed with: Medical Student Procedures: n/a Verification and Attestation of Medical Student E/M Service A medical student performed and documented this service in my presence. I reviewed and verified all information documented by the medical student and made modifications to such information, when appropriate. I personally performed the physical exam and medical decision making. Breanne Chaudhary, Apr 18, 2022,19:36 SEN [facility]CEPCION Apr 18, 2022 14:33 BREANNE CHAUDHARY MD Apr 18, 2022 19:36
[2022-04-18 20:55] VITALS: BP 122/73
[2022-04-19 03:40] VITALS: BP 112/59
[2022-04-19] MEDS: IBUPROFEN 600 MG (MOTRIN) TAB PO SCH ×3 (03:40→15:07)
[2022-04-19] MEDS: ACETAMINOPHEN 500 MG TAB (TYLENOL) PO SCH ×2 (06:22→11:58)
[2022-04-19 08:03] VITALS: BP 120/75
[2022-04-19] MEDS: DOCUSATE SODIUM 100 MG (COLACE) CAP PO SCH (09:24)
[2022-04-19] MEDS: FERROUS SULF 325 MG (IRON) TAB PO SCH (09:24)
[2022-04-19 16:50] VITALS: BP 120/75
== END 2022-04-19 16:50 | disposition home or self-care (01) | DRG 805 ==
LOC: LDRP 06:44
PROVIDERS: ADMIT Family Medicine; ATTEND Family Medicine
PROC: 10907ZC Drainage of Amniotic Fluid, Therapeutic from Products of Conception, Via Natural or Artificial Opening (ICD-10-PCS; 2022-04-16)
PROC: 3E033VJ Introduction of Other Hormone into Peripheral Vein, Percutaneous Approach (ICD-10-PCS; 2022-04-16)
PROC: 10E0XZZ Delivery of Products of Conception, External Approach (ICD-10-PCS; principal; 2022-04-16 23:58)
PROC: 10D17Z9 Manual Extraction of Products of Conception, Retained, Via Natural or Artificial Opening (ICD-10-PCS; 2022-04-17)
DX: O26.62 Liver and biliary tract disorders in childbirth (principal); K83.1 Obstruction of bile duct; Z37.0 Single live birth; O72.2 Delayed and secondary postpartum hemorrhage; D62 Acute posthemorrhagic anemia; Z3A.37 37 weeks gestation of pregnancy; O99.344 Other mental disorders complicating childbirth; F41.9 Anxiety disorder, unspecified; F32.A Depression, unspecified; O99.62 Diseases of the digestive system complicating childbirth; K21.9 Gastro-esophageal reflux disease without esophagitis; O99.334 Smoking (tobacco) complicating childbirth; F17.210 Nicotine dependence, cigarettes, uncomplicated; O69.81X0 Labor and delivery complicated by cord around neck, without compression, not applicable or unspecified; O90.81 Anemia of the puerperium
CPT/HCPCS: 36415; 80053; 83033; 85014; 85018; 85025; 85027; 85379; 85384; 85610; 85730; 86780; 86850; 86900; 86901; 86920

== ENCOUNTER 2022-05-25 15:50 | Emergency (ER) | payer MEDICAID ==
[~2022-05-25 15:50] MED LIST changes: +AMOX500T2 PO; +FERR325T18 PO
== END 2022-05-25 16:49 | disposition left against medical advice (07) ==
LOC: EDUNIT# 15:50 → ER FS 15:52
DX: R42 Dizziness and giddiness (principal); R53.1 Weakness; R35.0 Frequency of micturition; R30.0 Dysuria; R51.9 Headache, unspecified

== ENCOUNTER 2022-09-24 20:23 | Emergency (ER) | payer MEDICAID ==
[~2022-09-24] VITALS: Ht 157 cm; Wt 89.0 kg
[2022-09-24] MEDS ORDERED: NS IV 1000 ML 1,000 ML IV STA (20:39)
[2022-09-24] MEDS ORDERED: ONDANSETRON 4 MG/2 ML (SDV) Z0FRAN IVP ONE (20:45)
[2022-09-24] MEDS ORDERED: ONDA4TAB11 SL (20:45)
--- NOTE | 2022-09-24 20:45 | ED GI ---
General Stated Complaint: DIARRHEA,MOUTH DRY,DIZZY Source of Information: Patient Exam Limitations: No Limitations History of Present Illness Date Seen by Provider: Sep 24, 2022 Time Seen by Provider: 20:26 Initial Comments 22-year-old female with no pertinent past medical history coming in due to several days of nonbloody diarrhea and nausea. Started on Friday, her son also has been sick with vomiting, but he is already better. She denies any severe abdominal pain, fever, chest pain, shortness of breath, or any other concerns. She had a baby 5 months ago, and is on control. She does not breast-feed. Allergies and Home Medications Allergies Coded Allergies: No Known Allergies (Verified Allergy, Unknown, 05/29/18) Patient Home Medication List Home Medication List Reviewed: Yes Ferrous Sulfate (Ferrous Sulfate) 325 Mg (65 Mg Iron) Tablet, 325 MG PO DAILY Prescribed by: YOVANY CHAUDHARY on 04/18/22 0413 Ibuprofen (Ibu) 600 Mg Tablet, 600 MG PO Q6H PRN for PAIN-MODERATE (5-7) Prescribed by: YOVANY CHAUDHARY on 04/18/22 0409 Ondansetron (Ondansetron Odt) 4 Mg Tab.rapdis, 4 MG SL Q6H PRN for NAUSEA/VOMITING Prescribed by: KATT FLORES on 09/24/222044 Vit/Iron Fumarate/FA ( Vitamin Tablet) 1 Each Tablet, 1 EACH PO DAILY, (Reported) Entered as Reported by: RAZ WALTERS on 06/02/16 0135 Review of Systems Review of Systems Constitutional: No fever EENTM: No Symptoms Reported Respiratory: No Symptoms Reported Cardiovascular: No Symptoms Reported Gastrointestinal: See HPI Genitourinary: No Symptoms Reported Musculoskeletal: no symptoms reported Skin: no symptoms reported Psychiatric/Neurological: No Symptoms Reported Endocrine: No Symptoms Reported Hematologic/Lymphatic: No Symptoms Reported Past Lvrfids-Ecceus-Tgwsqy Hx Patient Social History Substance use?: No Immunizations Up To Date Tetanus Booster (TDap): Less than 5yrs PED Vaccines UTD: Yes First/Initial COVID19 Vaccinat: na Second COVID19 Vaccination Enrrique: na Third COVID19 Vaccination Date: na Seasonal Allergies Seasonal Allergies: No Past Medical History Surgery/Hospitalization HX: A0 Surgeries: Yes Gallbladder, Tonsillectomy Respiratory: No Currently Using CPAP: No Currently Using BIPAP: No Cardiac: No Neurological: No Female Reproductive Disorders: Denies Sexually Transmitted Disease: No HIV/AIDS: No Genitourinary: No Gastrointestinal: No Gall Bladder Disease Musculoskeletal: No Fractures Endocrine: No HEENT: No Loss of Vision: Denies Hearing Impairment: Denies Cancer: No Psychosocial: No Anxiety, Depression Integumentary: No Blood Disorders: No Adverse Reaction/Blood Tranf: No Family Medical History Cardiovascular disease 19 FATHER Completed stroke 19 FATHER Diabetes mellitus PATERNAL GRANDFATHER Hypertension 19 FATHER Kidney disease Myocardial infarction 19 FATHER Physical Exam Vital Signs Vital Signs - First Documented 09/24/22 20:23 Temp 36.9 Pulse 89 Resp 20 Pulse Ox 96 O2 Delivery Room Air Capillary Refill : Height/Weight/BMI Height: 5'2.00" Weight: 190lbs. 0.0oz. [id number]; 39.70 BMI Method:Stated General Appearance: WD/WN, no apparent distress HEENT: PERRL/EOMI, normal ENT inspection, pharynx normal Neck: non-tender, full range of motion, supple, normal inspection Respiratory: chest non-tender, lungs clear, normal breath sounds, no respiratory distress, no accessory muscle use Cardiovascular: regular rate, rhythm, no edema, no murmur Gastrointestinal: normal bowel sounds, non tender, soft; No distended, No guarding, No rebound Extremities: normal range of motion, non-tender, normal inspection, no pedal edema, no calf tenderness, normal capillary refill Back: normal inspection, no CVA tenderness Neurologic/Psychiatric: no motor/sensory deficits, alert, normal mood/affect Skin: normal color, warm/dry Progress/Results/Core Measures Results/Orders My Orders Orders - KATT FLORES MD Iv 1000 Ml (Sodium Chloride 0.9%) (09/24/22 20:39) Ondansetron Injection (Zofran Injectio (09/24/22 20:45) Ed Iv/Invasive Line Start (09/24/22 20:39) Medications Given in ED Current Medications Medications Dose Ordered Sig/Giacomo Route Start Time Stop Time Status Last Admin Dose Admin Ondansetron HCl 4 mg ONCE ONCE IVP 09/24/22 20:45 09/24/22 20:46 DC 09/24/22 20:52 4 MG Vital Signs/I&O 09/24/22 20:23 Temp 36.9 Pulse 89 Resp 20 B/P (MAP) Pulse Ox 96 O2 Delivery Room Air Progress Progress Note : Progress Note 22-year-old female with above history coming in due to diarrhea and nausea. ABCs were intact and vitals were stable on presentation. Physical exam reassuring including a soft and nontender abdomen. She recently had a baby, and is on control. LMP less than a month ago. It does sound like there is a GI illness spreading around her house, and clinically this would fit. An IV was placed here, given a bolus of IV fluids as well as Zofran. We will send a prescription for Zofran as well. Repeat abdominal exam once again reassuring, no clinical signs of colitis versus appendicitis versus some other etiology. She has her gallbladder removed already. Otherwise well-appearing and I believe stable for outpatient management. She was sent home with strict return precautions. Departure Impression Primary Impression: Nausea alone Additional Impression: Diarrhea Qualified Codes: R19.7 - Diarrhea, unspecified Disposition: HOME, SELF-CARE Condition: Stable Departure-Patient Inst. Decision time for Depature: 21:25 Referrals: ELIAS MORAES MD (PCP/Family) Primary Care Physician Patient Instructions: Diarrhea, Adult ED Add. Discharge Instructions: You can continue to use your antidiarrhea medicine that you are taking at home. Nausea medicines were sent to your pharmacy. Be sure to be trying to drink fluids to keep up with the diarrhea. Follow-up with your regular doctor if you are not seeing improvement in the next couple of days. Scripts Ondansetron (Ondansetron Odt) 4 Mg Tab.rapdis 4 MG SL Q6H PRN for NAUSEA/VOMITING for 5 Days, #20 TAB Prov: KATT FLORES MD 09/24/22 Work/School Note: Work Release Form Date Seen in the Emergency Department: Sep 24, 2022 Return to Work: Sep 25, 2022 Restrictions: Return-No Vomiting(24hrs) KATT FLORES MD Sep 24, 2022 20:45
== END 2022-09-24 22:03 | disposition home or self-care (01) ==
LOC: EDUNIT# 20:23 → ER FS 20:24
DX: R11.0 Nausea (principal); R19.7 Diarrhea, unspecified; Z28.310 Unvaccinated for COVID-19; Z90.49 Acquired absence of other specified parts of digestive tract